=== PATIENT | female | born 1965 | race Caucasian/White ===

== ENCOUNTER 2018-01-02 10:28 | Emergency (ER) | payer OTHER, SELFPAY ==
[2018-01-02 10:29] VITALS: BP 119/69; PULSE 124; RESP 17; TEMP 37.7; O2SAT 93; BMI 41.0
[2018-01-02 10:33] VITALS: PULSE 121; RESP 17; O2SAT 93
--- NOTE | 2018-01-02 10:56 | ED.DCSUM_ITS ---
- ER Visit Summary Date of Service: 01/02/18 Chief Complaint: [] Low lumbar back pain yesterday evening History of Present Illness: The patient is a 52 F [] lumbar spine fusion in the past, chronic right knee pain scheduled for surgery next week reports that yesterday around 10 AM to be having low lumbar back pain persisted radiates to her left buttock, she is having no abdominal pain no fever no cough no chest pain 06 paresthesias normal bowel bladder habits no perineal anesthesia she has had no trauma to her body and no other complaints he has no history of SC PE DVT dissection AAA or GI GI or elements such as kidney stones Physical Examination: [] She is a very large woman short statured she complains of pain directly to her low lumbar back this area is tender, there is no warmth or swelling her lungs are clear heart tones are normal the abdomen is obese but soft nontender she denies any perineal anesthesia she has full range of motion of her legs limited slightly by pain but there is normal strength of both lower extremities she is able dorsi and plantarflex the feet and the toes without difficulty there is no loss of sensation as long as she still she feels better when she tries to move her body she has pain Test Results: [] Emergency Department Course and Treatment: [] Pain appears to be musculoskeletal if she sitting still she feels much better when she tries to move or roll she has more pain at this time she will be medicated lumbar back XRAYS Spine x-rays are unremarkable she is feeling better explained test results to her at this time she feels well enough to be discharged home, and this is likely musculoskeletal as her symptoms are clearly reproduced and exacerbated by movement better when she rests she has no abdominal pain or other risk factors and there are no red flag symptoms On Percocet for the pain Flexeril she is seeing Dr. Glen Sanchez for her knee she can either see him for the back as well or her family doctor or both and return for change in symptoms Treatment Plan: [] Disposition: [] Stable home Impression: [] Acute lumbar back strain This note was generated with [employer] software. It may contain incorrect words, spelling, and punctuation that were not noted in review of the chart prior to signing ED Disposition - Plan for ED Patient: Chief Complaint: Back Referrals: Stephanie Proctor [Primary Care Provider] -
[2018-01-02] MEDS: Ondansetron ODT 4 MG Tablet PO (11:34)
--- NOTE | 2018-01-02 11:40 | RAD_ITS ---
STUDY: X-RAY - LUMBAR SPINE REASON FOR EXAM: Female, 52 years old. Pain TECHNIQUE: 3 view(s) of the lumbar spine were obtained. COMPARISON: None FINDINGS: Normal lumbar lordosis. There is no substantial scoliosis. There is a normal alignment of the vertebrae. Partially fused L5-S1 level. Normal vertebral bodies. Minimal spurring at the endplates. Normal disc space heights. The soft tissue structures are unremarkable. There are surgical clips in the right upper quadrant. RAD/Lumbar Spine 2 or 3 Views IMPRESSION: No acute bony injury of the lumbar spine. Electronically Signed: Emerson Hurtado DO at 12:09 EST Tel [phone], Service support ,
--- NOTE | 2018-01-02 12:18 | ED.DEP ---
ED Disposition - Plan for ED Patient: Chief Complaint: Back Instructions: ED Spasm Back No Trauma Prescriptions: Oxycodone HCl/Acetaminophen [Percocet 5/325] 1 tab PO Q6H PRN PRN #12 tab PRN Reason: Pain Referrals: Stephanie Proctor [Primary Care Provider] -
[2018-01-02 12:50] VITALS: BP 113/64; PULSE 111; RESP 15; O2SAT 94
== END 2018-01-02 12:51 | disposition home or self-care (01) ==
PROVIDERS: Emergency Provider Emergency Medicine; Family Provider Family Medicine; PCP Family Medicine
DX: S39.012A Strain of muscle, fascia and tendon of lower back, initial encounter (principal); X58.XXXA Exposure to other specified factors, initial encounter; Y93.9 Activity, unspecified; Y92.9 Unspecified place or not applicable; M25.561 Pain in right knee; G89.29 Other chronic pain; Z98.1 Arthrodesis status; Z79.899 Other long term (current) drug therapy
CPT/HCPCS: 72100; 96372; 99283

== ENCOUNTER → 2018-09-15 13:42 | Outpatient (CLI) | payer OTHER, SELFPAY ==
--- NOTE | 2018-09-15 13:49 | VDLE_ITS ---
Reason For Study: LEG PAIN RIGHT LEFT GSV is normal. CFV is compressible, spontaneous, phasic, CFV is compressible, spontaneous, phasic, competent, and demonstrates normal competent and demonstrates normal augmentation. augmentation. FV is compressible, spontaneous, phasic, competent and demonstrates normal augmentation. POP V is compressible, spontaneous, phasic, competent and demonstrates normal augmentation. T/P Trunk is compressible. PTV is compressible. RT PerV is compressible. Procedure Exam performed in department. A preliminary report was called and/or faxed to Skyla Mccallum. <> Interpretation Summary Deep veins of the right lower extremity are patent and compressible segmentally. There is no evidence of right lower extremity deep vein thrombosis. Valvular competence appears intact within the proximal deep venous system on the right . The right greater saphenous vein appears patent and compressible segmentally. Ordering Physician: Brandon Mccallum Referring Physician: Brandon Mccallum Performed By: Kiana Robles RVT
== END ==
PROVIDERS: Family Provider Family Medicine; PCP Family Medicine; Referring Provider Physician Assistant; Visit Provider Physician Assistant
DX: M79.661 Pain in right lower leg (principal)
CPT/HCPCS: 93971

== ENCOUNTER → 2018-11-02 10:32 | Outpatient (CLI) | payer OTHER, SELFPAY ==
--- NOTE | 2018-11-02 10:46 | EKG12_ITS ---
Test Reason : PRE OP Blood Pressure : / mmHG Vent. Rate : 085 BPM Atrial Rate : 085 BPM P-R Int : 164 ms QRS Dur : 074 ms QT Int : 384 ms P-R-T Axes : 073 022 047 degrees QTc Int : 456 ms Normal sinus rhythm Normal ECG Confirmed by ROBERT EDUARDO, EVERARDO ([id number]), make up editor PETER TOLENTINO ([id number]) on 11/03/2018 2:20:44 PM Referred By: Brandon Mccallum Confirmed By:EVERARDO JONES MD
[2018-11-02 11:09] LABS: Hematocrit 41.3 % (37-47); Hemoglobin 13.9 g/dl (12.0-15.0); Mean Corp Hgb Conc 33.7 g/gl (32-36); Mean Corpuscular Hgb 29.3 pg (27.0-32.0); Mean Corpuscular Volume 87.1 fL (81-99); Mean Platelet Vol. 10.4 fl (6.2-12.0); Platelet Count 265 K/mm3 (150-450); RBC Distribution Width CV 13.2 % (11.6-14.6); Red Blood Count 4.74 M/mm3 (4.2-5.4); White Blood Count 9.9 K/mm3 (4.4-11.0)
[2018-11-02 11:15] LABS: Scan Indicated on CBC? Y/N NO
[2018-11-02 11:29] LABS: Anion Gap 8 (5-15); BUN 17 mg/dL (7-18); BUN/Creat Ratio 19.9 RATIO (10-20); Chloride 101 mmol/L (98-107); Creatinine, Serum 0.86 mg/dL (0.55-1.02); EST Glomerular Filtration Rate 74 mL/min (>60); Est Glom Filt Rate - Afr Amer 90 mL/min (>60); Glucose 121 mg/dL (74-106); Sodium Level 138 mmol/L (136-145)
== END ==
PROVIDERS: Family Provider Family Medicine; PCP Family Medicine; Referring Provider Physician Assistant; Visit Provider Physician Assistant
DX: Z01.818 Encounter for other preprocedural examination (principal); Z01.810 Encounter for preprocedural cardiovascular examination
CPT/HCPCS: 36415; 80048; 85027; 93005

== ENCOUNTER 2020-04-06 00:14 | Emergency (ER) | payer OTHER, SELFPAY ==
[2020-01-21 09:15] VITALS: BMI 41.0
[2020-04-06 00:14] VITALS: BP 152/86; PULSE 87; RESP 16; TEMP 36.3; O2SAT 96; BMI 41.8
--- NOTE | 2020-04-06 00:21 | EKG12_ITS ---
Test Reason : Blood Pressure : / mmHG Vent. Rate : 086 BPM Atrial Rate : 086 BPM P-R Int : 162 ms QRS Dur : 074 ms QT Int : 380 ms P-R-T Axes : 072 024 025 degrees QTc Int : 454 ms Normal sinus rhythm Low voltage QRS Borderline ECG Confirmed by ARIANA EDUARDO, RADHA ([id number]), communications editor KEILA SERRATO ([id number]) on 04/09/2020 2:08:14 PM Referred By: MARCIO Confirmed By:KARIS LNAE MD
--- NOTE | 2020-04-06 00:22 | ED.DCSUM_ITS ---
History of Present Illness Chief Complaint: Hyperglycemia Informant: Patient Narrative: Resents with lightheaded episode at work. She stated she felt sweaty at the time. She felt slightly disoriented. This is slowly passed. She checked her blood sugar and it was normal. Her blood sugar was greater than 400 this afternoon however. The patient denies any chest pain shortness of breath headache or other symptoms. She stated her legs feel heavy below her knees. She has had this in the past but never this severe. She is unsure whether causes. Denies any cardiac history. - Past Medical History (1) Chest pain Status: Acute (2) Diabetes Status: Acute (3) Hypothyroid Status: Acute (4) bipolar Status: Acute Past Medical History - Allergies and Home Meds Allergies/Adverse Reactions: Allergies Cephalosporins Allergy (Verified 04/06/20 00:18) Rash Penicillins [PCN] Allergy (Verified 04/06/20 00:18) Rash Sulfa (Sulfonamide Antibiotics) Allergy (Verified 04/06/20 00:18) Rash Primary Care Physician: Carson Jeong MD [Primary Care Provider] - Prior records reviewed: Yes Past Medical History: - - See problem list Surgical History: cholecystectomy, - - back surgery, hysterectemy. Lives: With Family Smoking Status: Never smoker Alcohol: None Drugs: None - Family History Paternal Family History: Reports: - - uncles and grandmother had heart attacks. Review of Systems General: Reports: Sweats. Denies: Chills, Fever Eyes: Denies: Visual changes - bilaterally, Diplopia ENT: Denies: Rhinorrhea, Sore throat Cardiovascular: Denies: Chest pain, Palpitations Respiratory: Denies: Dyspnea, Cough, Dyspnea on exertion Gastrointestinal: Denies: Abdominal pain, Nausea, Vomiting, Diarrhea, Melena, Hematochezia Genitourinary: Denies: Dysuria, Hematuria, Frequency Musculoskeletal: Denies: Back pain, Extremity Pain Skin: Denies: Rash, Wounds Neurological: Reports: Weakness. Denies: Headache, Numbness Physical Exam Vital Signs/Narrative: Vital Signs Temp Pulse Resp BP Pulse Ox 04/06/20 00:14 97.4 F L 87 16 152/86 H 96 General: Well nourished, Well developed, No Acute Distress Head: Normocephalic, Atraumatic Eyes: Perrl, EOMI ENT: Moist mucous membranes, No rhinorrhea Neck: Supple, Nontender Cardiovascular: Regular rate, Regular rhythm, No murmurs Respiratory: No distress, CTA bilaterally, Chest nontender Abdomen: Soft, Nontender, Nondistended, Normal bowel sounds Back: Nontender, Normal Inspection Extremities: Nontender, No edema Skin: Normal color, No rash Neurological: Alert, Oriented x3, Cranial nerves II-XII grossly intact, Normal Strength, Normal Sensation Psychological: Normal affect, Normal Mood Diagnostic/Tx/Re-eval - Medical Decision Making Blood sugar within normal limits in the emergency department. Lab work and EKG obtained. Lab work normal including CBC BMP troponin. EKG shows normal sinus rhythm 86 with no acute ischemia or arrhythmia. Patient remains comfortable in the department. I do not feel she needs a inpatient work-up. She is resting comfortably. Her symptoms are nonspecific. I feel she can follow-up as an ou tpatient ED Disposition - Plan for ED Patient: Disposition: Home or Assisted Living Diagnosis: Light headedness, Weakness Instructions: ED Weakness [facility], ED Dizziness [facility] Referrals: Carson Jeong MD [Primary Care Provider] -
[2020-04-06 00:26] LABS: Bedside Glucose 139 mg/dL (70-110)
[2020-04-06 00:47] LABS: Absolute Lymphocyte Count 1.97 X10^3/uL (0.83-4.51); Absolute Neutrophil Count 7.5 X10^3/uL (2.0-7.7); Basophil# 0.03 X10^3/uL; Basophil% 0.3 % (0-1); Eosinophil# 0.13 X10^3/uL; Eosinophils% 1.3 % (0-5); Hematocrit 37.9 % (37-47); Hemoglobin 12.5 g/dL (12.0-15.0); Lymphocyte # 1.97 X10^3/ul (4.0); Lymphocyte % 19.3 % (19-41); Mean Corpuscular Hgb 27.4 pg (27.0-32.0); Mean Corpuscular Volume 83.1 fL (81-99); Mean Platelet Vol. 10.2 fl (6.2-12.0); Monocyte# 0.53 X10^3/uL; Monocyte% 5.2 % (0-10); NRBC Flagged by Analyzer 0 % (0-5); Neutrophil # 7.51 X10^3/uL (2.7-7.7); Neutrophil % 73.4 % (47-70); Platelet Count 262 K/mm3 (150-450); RBC Distribution Width CV 12.9 % (11.6-14.6); RBC Distribution Width SD 38.9 fl (35.1-43.9); Red Blood Count 4.56 M/mm3 (4.2-5.4); White Blood Count 10.2 K/mm3 (4.4-11.0)
[2020-04-06 01:38] LABS: Anion Gap 7 (5-15); BUN 9 mg/dL (7-18); BUN/Creat Ratio 11.2 RATIO (10-20); Calcium,Total 9.4 mg/dL (8.5-10.1); Chloride 104 mmol/L (98-107); EST Glomerular Filtration Rate 79 mL/min (>60); Est Glom Filt Rate - Afr Amer 96 mL/min (>60); Estimated Creatinine Clearance 61.37 ml/min; Glucose 128 mg/dL (74-106); Potassium 4.4 mmol/L (3.5-5.1); Sodium Level 140 mmol/L (136-145)
[2020-04-06 01:42] VITALS: BP 129/77; PULSE 85; RESP 16; O2SAT 98
--- OUTSIDE RECORDS SUMMARY | 2020-08-12 12:12 | XMS RPT_ITS | CCD ---
:1965 External Reference #:[id number] Author Organization [facility] Care Team Providers Name Role Phone Hitesh Unavailable Unavailable Hitesh Unavailable Unavailable RENNY, M Unavailable Unavailable Hitesh Unavailable Unavailable Hitesh Unavailable Unavailable O'Evy Unavailable Unavailable Christian, Elyaderani Admitting Unavailable Christian, Elyaderani Attending Unavailable Christian, Elyaderani Referring Unavailable UNKNOWN Primary Care Unavailable Hcristian, Elyaderani Attending Unavailable UNKNOWN Referring Unavailable UNKNOWN Primary Care Unavailable Christian, Elyaderani Attending Unavailable UNKNOWN Referring Unavailable UNKNOWN Primary Care Unavailable Christian, Elyaderani Attending Unavailable UNKNOWN Referring Unavailable UNKNOWN Primary Care Unavailable Christian, Elyaderani Attending Unavailable UNKNOWN Referring Unavailable UNKNOWN Primary Care Unavailable Pilo Sheffield Primary Care Provider Pilo Sheffield Primary Care Provider Allergies Reported Allergen Reaction(s) Severity Date of Onset Location Cephalosporins (Antibiotic) Anxiety Mild 06-18-2015 - [facility] ([id number]) Penicillins Rash Mild 06-18-2015 - [facility] (50855) Sulfonamides (Antibiotic) Rash Mild 06-18-2015 - [facility] (15165) Medications Current Medications Medication Name Sig Date Prescriber Location Acetaminophen acetaminophen (AMINOFEN) 01-27-2019 Rashad Vieyra nd [facility] (82043) 325 MG tablet Take 2 tablets by mouth every 6 hours as needed for Pain 120 tablet 0 01/27/2019 Active ARIPiprazole ARIPiprazole (ABILIFY) 5 05-07-2015 Historical Provi karthik [facility] (93016) MG tablet Take 5 mg by mouth daily 0 05/07/2015 Active atorvastatin atorvastatin (LIPITOR) 02-01-2020 [facility] (20126) 20 MG tablet Indications: Other hyperlipidemia Take 1 tablet by mouth nightly 90 tablet 1 02/01/2020 Active atorvastatin (LIPITOR) 20 MG tablet Indications: Other 9 [facility] (76976) hyperlipidemia Take 1 tablet by mouth nightly 90 tablet 1 08/03/2019 Active Azithromycin azithromycin 12-09-2019 [facility] (53148) (ZITHROMAX) 250 MG tablet Take 2 tabs (500 mg) on Day 1, and take 1 tab (250 mg) on days 2 through 5. 1 packet 0 12/09/2019 Active Calcium Carbonate calcium carbonate 02-22-2018 Stephanie [facility] (41222) (OSCAL) 500 MG TABS tablet Take 1 tablet by mouth daily 90 tablet 0 02/22/2018 Active clonazePAM clonazePAM (KLONOPIN) 05-07-2015 Historical Provider [facility] (00142) 0.5 MG tablet Take 0.5 mg by mouth nightly . 0 05/07/2015 Active Diclofenac diclofenac sodium 04-02-2020 [facility] th- (VOLTAREN) 1 % [place], [place] ([address]) Indications: Arthritis of left ankle Apply 2 g topically 2 times daily To left ankle 1 Tube 3 04/02/2020 Active dulaglutide Dulaglutide 05-15-2020 [facility] (60450) (TRULICITY) 1.5 MG/0.5ML SOPN Inject 1.5 mg into the skin once a week 12 pen 3 05/15/2020 Active Dulaglutide (TRULICITY) 1.5 MG/0.5ML 11-03-2019 Sofie Molina oy Nettie [facility] (97963) SOPN Inject 1.5 mg into the skin once a week 12 pen 1 11/03/2019 Active erenumab Erenumab-aooe (AIMOVIG, Historical Provid er [facility] (01362) 140 MG DOSE,) 70 MG/ML SOAJ Inject into the skin every 30 days For migraines 0 Active Ergocalciferol Vitamin D, 02-01-2020 [facility] (27776) Ergocalciferol, 50 MCG (2000 UT) CAPS Indications: Vitamin D deficiency Take 1 capsule by mouth daily 90 capsule 1 02/01/2020 Active Vitamin D, Ergocalciferol, 2000 units CAPS Indications: 08-03-20 19 [facility] (63890) Vitamin D deficiency Take 1 capsule by mouth daily 90 capsule 1 08/03/2019 Active gabapentin gabapentin (NEURONTIN) 300 MG 11-02-2019 - 01-31-2020 [facility] (53614) capsule Indications: Arthritis Take 1 capsule by mouth 3 times daily for 90 days. 270 capsule 1 11/02/2019 Active glimepiride glimepiride (AMARYL) 4 MG tablet 05-15-2020 [facility] (47272) Take 2 tablets by mouth every morning 180 tablet 3 05/15/2020 Active glimepiride (AMARYL) 4 MG tablet Indications: Diabetes 0 [facility] (15251) mellitus type 2 in obese (HCC) Take 2 tablets by mouth every morning 180 tablet 1 02/01/2020 Active glimepiride (AMARYL) 4 MG tablet Indications: Diabetes 0 [facility] (08284) mellitus type 2 in obese (HCC) Take 2 tablets by mouth every morning 180 tablet 0 11/11/2019 Active hydroCHLOROthiazide hydroCHLOROthiazide 08-03-2019 - [facility] (67292) (HYDRODIURIL) 25 MG 08-03-2020 tablet Indications: Essential hypertension Take 1 tablet by mouth daily 90 tablet 1 02/01/2020 08/03/2020 Active levothyroxine levothyroxine (SYNTHROID) 08-03-2019 - [facility] (03284) 25 MCG tablet 08-03-2020 Indications: Hypothyroidism, unspecified type Take 1 tablet by mouth daily 90 tablet 1 02/01/2020 08/03/2020 Active Lisinopril lisinopril 09-28-2019 - [facility] (94713) (PRINIVIL;ZESTRIL) 5 MG 12-27-2019 tablet TAKE 1 TABLET DAILY 90 tablet 1 12/19/2019 Active metFORMIN metFORMIN (GLUCOPHAGE XR) 08-03-2019 - [facility] (94459) 500 MG extended release 11-15-2020 tablet Take 2 tablets by mouth 2 times daily (before meals) 360 tablet 1 05/15/2020 11/15/2020 Active Metoprolol metoprolol succinate 03-26-2020 [facility] ( 95054) (TOPROL XL) 50 MG extended release tablet Take 1 tablet by mouth daily 90 tablet 1 03/26/2020 Active metoprolol succinate (TOPROL XL) 50 MG 10-03-2019 Sofie Burnhammer [facility] (14197) extended release tablet Take 1 tablet by mouth daily 90 tablet 1 10/03/2019 Active Omeprazole omeprazole (PRILOSEC) 40 MG delayed release 02-01-2020 [facility] (82785) capsule Indications: Gastroesophageal reflux disease, esophagitis presence not specified Take 1 capsule by mouth daily 90 capsule 1 02/01/2020 Active omeprazole (PRILOSEC) 40 MG delayed release capsule 08-03-2019 [facility] (66365) Indications: Gastroesophageal reflux disease, esophagitis presence not specified Take 1 capsule by mouth daily 90 capsule 1 08/03/2019 Active REYVOW 100 MG TABS REYVOW 100 MG TABS 05-17-2020 Historical Provi [facility]- Take 2 tablets by Historical Provider [place] ([address]) mouth as needed 0 05/17/2020 Active SITagliptin SITagliptin 02-01-2020 [facility] (80341) (JANUVIA) 100 MG tablet Indications: Diabetes mellitus type 2 in obese (HCC) TAKE 1 TABLET BY MOUTH EVERY DAY 90 tablet 1 02/01/2020 Active SITagliptin (JANUVIA) 100 MG tablet Indications: Diabetes 2019 [facility] (49406) mellitus type 2 in obese (HCC) TAKE 1 TABLET BY MOUTH EVERY DAY 90 tablet 0 11/11/2019 Active Sodium Chloride 0.9 % sodium chloride 06-26-2020 Amrik Amaya [place], [place] infusion (77847) 0.9 % sodium chloride bolus 03-31-2020 - 04-01-2020 [place], [place] ([address]) SUMAtriptan SUMAtriptan (IMITREX) 100 Historical Prov ider [facility] (57586) MG tablet Take 100 mg by mouth once as needed for Migraine Max 2 per day 0 Active ZOLMitriptan ZOMIG 5 MG nasal solution 10-07-2019 Historical Prov ider [facility] (05214) Completed/Discontinuned Medications Medication Name Sig Date Prescriber Location albuterol sulfate HFA albuterol sulfate HFA 08-03-2019 - Agueda Boles [facility] (54265) 108 (90 Base) MCG/ACT 108 (90 Base) MCG/ACT 06-26-2020 inhaler inhaler Indications: Bronchitis Inhale 2 puffs into the lungs every 6 hours as needed for Wheezing or Shortness of Breath 1 Inhaler 0 08/03/2019 06/26/2020 Discontinued (Therapy completed) albuterol sulfate HFA 108 (90 Base) MCG/ACT 08-03-2019 Shahnaz Angeles [facility] (27783) inhaler Indications: Bronchitis Inhale 2 puffs into the lungs every 6 hours as needed for Wheezing or Shortness of Breath 1 Inhaler 0 08/03/2019 Active albuterol sulfate HFA 108 (90 Base) MCG/ACT 08-03-2019 Shahnaz jacques [facility] (17494) inhaler Indications: Bronchitis Inhale 2 puffs into the lungs every 6 hours as needed for Wheezing or Shortness of Breath 1 Inhaler 0 08/03/2019 Active albuterol sulfate HFA 108 (90 Base) MCG/ACT 08-03-2019 Shahnaz jacques Brunner Lalit [facility] (78284) inhaler Indications: Bronchitis Inhale 2 puffs into the lungs every 6 hours as needed for Wheezing or Shortness of Breath 1 Inhaler 0 08/03/2019 Active Dexamethasone dexamethasone 04-01-2020 - [facility]- (DECADRON) injection 04-01-2020 [place] ([address]) 10 mg Metoclopramide metoclopramide 03-31-2020 - [facility] h- (REGLAN) injection 10 03-31-2020 [place] ([address]) mg nabumetone nabumetone (RELAFEN) 03-22-2020 - Sofie [facility]- 500 MG tablet Take 1 06-26-2020 [facility] [place] ([address]) tablet by mouth 2 times daily 60 tablet 0 03/22/2020 06/26/2020 Discontinued (DISCONTINUED BY ANOTHER CLINICIAN) nabumetone (RELAFEN) 500 MG tablet Take 1 01-09-2020 [facility] [place] ([address]) tablet by mouth 2 times daily 60 tablet 0 01/09/2020 Active Ondansetron ondansetron 12-11-2019 [facility] (97586) (ZOFRAN-ODT) 4 MG 12-11-2019 Provider disintegrating tablet predniSONE predniSONE (DELTASONE) 04-01-2020 - [facility]- 20 MG tablet Take 2 04-29-2020 [place], [place] ( [address]) tablets by mouth daily for 14 days, THEN 1 tablet daily for 14 days. 42 tablet 0 04/01/2020 04/29/2020 Active predniSONE (DELTASONE) 20 04-01-2020 - [facility] [place] [place] MG tablet Take 3 tablets by (452 37) mouth daily for 14 days, THEN 2 tablets daily for 14 days, THEN 1 tablet daily for 14 days. 84 tablet 0 04/01/2020 04/01/2020 Discontinued (REORDER) Problems Active Problems Category Problem Name Status Date Location Allergic reactions Allergy status to Active 04-20-2018 [facility] sulfonamides status System ( 41737) Biliary tract disease Postcholecystectomy Active 01-07-2018 [facility] syndrome System (60817) Diabetes mellitus with Type 2 diabetes mellitus in Active [facility] (31171) complications obese Diabetes mellitus Type 2 diabetes mellitus Active 01-07-2018 [facility] without complication without complications System (70985) Disorders of lipid Hyperlipidemia, unspecified Active 018 [facility] metabolism System (43285) Esophageal disorders Gastro-esophageal reflux Active 01-08-20 [facility] disease without esophagitis System (85561) Essential hypertension Essential (primary) Active 11-28-2015 [facility] hypertension System (89132) Headache; including Refractory migraine with Active [facility] (86643) migraine aura Malaise and fatigue Fatigue Active [facility]- [place] ([address]) Mood disorders Major depressive disorder, Active 04-20-2018 [facility] Health recurrent, unspecified Syste m (65637) Nonspecific chest pain Chest pain Active [facility] (66773) Nutritional Vitamin D deficiency Active 03-04-2017 [facility] ( 78760) deficiencies Osteoarthritis Arthritis Active 11-28-2015 [facility] (09593) Other liver diseases Fatty (change of) liver, Active 01-08-20 [facility] not elsewhere classified Sys tem (28486) Other liver diseases Non-alcoholic fatty liver Active 017 [facility] (02024) Other non-traumatic Arthritis of left ankle Active 04-02-2020 - [facility]- joint disorders [place], [place] ([address]) Other non-traumatic Acute ankle pain Active [facility]- joint disorders [place], [place] ([address]) Other nutritional; Body mass index 40+ - Active 04-21-2018 [facility] (64645) endocrine; and severely obese - 12-31-2018 metabolic disorders - Other nutritional; Obesity, unspecified Active 01-07-2018 [facility] endocrine; and System (95573 ) metabolic disorders Other nutritional; Morbid obesity Active [facility]- endocrine; and [place], [place] ([address] ) metabolic disorders Thyroid disorders Hypothyroidism, unspecified Active 04-20-20 [facility] System (63692) Unclassified MCFP (current) use of Active 04-20-2018 [facility] oral hypoglycemic drugs Syst em (99564) Unclassified Body mass index (BMI) Active 01-07-2018 [facility] Health 38.0-38.9, adult System (000 00) Past or Other Problems Category Problem Name Status Date Location Abdominal pain Flank pain Completed 01-10-2018 [facility] (54114) Bacterial infection Unspecified Escherichia Completed 01-07-2018 [facility] coli [E. coli] as the System (97896) cause of diseases classified elsewhere Fever of unknown origin Fever, unspecified Completed 01-07-2018 [facility] Health - 11-03-2018 System (11595) - Fluid and electrolyte Hypokalemia Completed 01-07-2018 [facility] Health disorders System (99589) Genitourinary symptoms Gross hematuria Completed 01-07-2018 [facility] and ill-defined - 11-03-2018 System (0000 0) conditions - Other gastrointestinal Constipation, Completed 01-07-2018 - [facility] Health disorders unspecified System (13231) Other injuries and Systemic inflammatory Completed 01-07-2018 [facility] Health conditions due to response syndrome Syste m (60922) external causes (SIRS) of non-infectious origin without acute organ dysfunction Other injuries and Systemic inflammatory Completed 01-07-2018 [facility] (15864) conditions due to response syndrome - 01-13-2018 external causes - Other liver diseases Enzyme level - finding Completed 01-07-2018 - [facility] (03976) - 12-31-2018 - Other lower respiratory Hypoxia Completed 01-10-2018 - [facility] (83265) disease - 12-31-2018 - Other lower respiratory Hypoxemia Completed 01-07-2018 - [facility] Health disease System (74479) Other nutritional; Obesity Completed 11-03-2018 - [facility] (44 303) endocrine; and metabolic disorders Other screening for Liver function tests Completed 08-03-2019 - [facility] (21217) suspected conditions abnormal (not mental disorders or infectious disease) Pleurisy; pneumothorax; Pleural effusion Completed 01-10-2018 - [facility] (14271) pulmonary collapse - 12-31-2018 - Residual codes; History of Completed 12-31-2018 - [facility] (30667 ) unclassified cholecystectomy Septicemia (except in Bacteremia caused by Completed 11-03-2018 - [facility] (91666) labor) Gram-negative bacteria Spondylosis; Lumbago with sciatica, Completed 01-07-2018 - [facility] Health intervertebral disc left side - 11-03-2018 System ( 49703) disorders; other back - problems Results Result Name Value Range Unit Interpretation Flag Date Location surgical pathology on 2020-06-26 Surgical [id number] Normal 06-26-2020 [facility] Pathology [facility] DEPARTMENT OF [facility] System PATHOLOGY AND (72393 ) LABORATORY MEDICINE [address] [place] [address] Fax - FINAL SURGICAL PATHOLOGY REPORT NAME: SHIRLEY HYLTON : 1965 54 Y F BILLING NO.: [id number] LOCATION: [place] PROCEDURE 06/26/2020 DATE: SURGEON: DAVID RABAGO MD RECEIVED 06/26/2020 DATE: ATTENDING: DAVID RABAGO MD REPORT DATE: 06/27/2020 COPIES TO: DIAGNOSIS: COLON, CECUM, POLYPECTOMY - TUBULAR ADENOMA JAW/JAW Signature> ELAINE BROWLNEE M.D. CLINICAL INFORMATION: Screening SPECIMEN: COLON POLYP, BIOPSY GROSS DESCRIPTION: Received in formalin labeled colon - cecum polyp are multi ple segments of ellison tissue which aggregate to approximately 0.4 x 0.4 cm. Specimen is entirely submitted in a single cassette. JCK/JAF Disclaimer: The following statement applies to all immunohistochemistry, in situ hybridization, molecular studi es, and immunofluorescence testing. The use of one or more reagents in the above tests is regula marciano as an analyte specific reagent (ASR). These tests were developed a nd their performance characteristics determined by the clinical labor atories of [facility]. They have not been cleared by the [place] od and Drug Administration (FDA). The FDA has determined that such clear ance or approval is not necessary. All the above immunostains were performed on paraffin embedd ed tissue. Appropriate positive and negative controls (where applicable ) were run in parallel with the patient's specimen; these controls show ed expected staining pattern, with acceptable intensity of staining. Immunohistochemical assays have not been validated on decalc ified tissues. Results should be interpreted with caution given th e raised possibility of false negativity on decalcified specimens. Case reviewed at [place] [address] [place] [address]. DEPARTMENT OF PATHOLOGY AND LABORATORY MEDICINE [place], [place] [address] glucose,bedside on 2020-06-26 Glucose [Mass/Vol] 169 70-100 mg/dL High 06-26-2020 [facility] (89578) Comment: Result Comment: Test perform ed by glucose meter. Results may be 10%-15% lower than serum/plasma values. (C ZAID ID [id number]) Performed By: #### HEMOG, BM P3, MG3, TROPN #### [facility] [address] [place] [address] No panel information on 2020-06-26 Glucose [Mass/Vol] 169 70 - 100 mg/dL High 06-26-2020 [place], [place] ([address]) Comment: Test performed by glucose me ter. Results may be 10%-15% lower than serum/plasma values. ( CLIA ID [id number]) Interpretation and review Abnormal [facility], of laboratory results [place] ([address]) Test Performed by 06-26-2020 [facility], [facility] ([address]) [address] , [place], [place] [address] sed rate on 2020-03 Sed Rate 66 0-20 mm/h High 04-01-2020 [facility] (39184) Comment: Performed By: #### HEMOG, BM P3, MG3, TROPN #### [facility] [address] [place] [address] prothrombin time on 2020-04-01 INR Coag (PPP) [Relative 1.0 0.9-1.1 Normal 04-01 [facility] time] (98791) Comment: Result Comment: Recommended Anticoagulant Therapy: SEE BELOW ----- INR of 2.0 - 3.0 : - Prophylaxis of Venous Thro mbosis (high-risk surgery) - Treatment of Venous Thromb osis - Treatment of Pulmonary Emb olism (Includes tissue heart valves, Acute Myocardial Inf arction to prevent systemic embolism, Valvular Heart Dis ease, and Atrial Fibrillation) ----- INR of 2.5 - 3.5 : - Mechanical Prosthetic Valv es (high risk) - If oral anticoagulant ther apy is used to prevent Myocardial Infarction Performed By: #### HEMOG, BM P3, MG3, TROPN #### [facility] [address] [place] [address] PT Coag (PPP) [Time] 10.9 9.0-12.0 s Normal 0 [facility] (56958) Comment: Result Comment: . Performed By: #### HEMOG, BM P3, MG3, TROPN #### [facility] [address] [place] [address] magnesium on 04-01 Magnesium [Mass/Vol] 1.7 1.6-2.3 mg/dL Normal 0 [facility] (83310) Comment: Performed By: #### HEMOG, BM P3, MG3, TROPN #### [facility] [address] [place] [address] hemogram w/ autodiff on 2020-04-01 Abs Baso Cnt 0.1 0.0-0.2 10*3/uL Normal 04-01-2020 [facility] (71183) Comment: Performed By: #### HEMDF, MG 3, BMP3, ESR, PT #### [facility] [address] [place] [address] Abs Neutrophile Cnt 6.6 1.8-7.0 10*3/uL Normal 04-01-2020 [facility] (28050) Comment: Performed By: #### HEMDF, MG 3, BMP3, ESR, PT #### [facility] [address] [place] [address] Basophils/100 WBC (Bld) 0.6 0.0-2.0 % Normal 2019 [facility] (41238) Comment: Performed By: #### HEMDF, MG 3, BMP3, ESR, PT #### [address] [place] [address] Eosinophils (Bld) [#/Vol] 0.1 0.0-0.5 10*3/uL Normal [facility] (58375) Comment: Performed By: #### HEMDF, MG 3, BMP3, ESR, PT #### [address] [place] [address] Eosinophils/100 WBC (Bld) 1.4 1.0-6.0 % Normal [facility] (73418) Comment: Performed By: #### HEMDF, MG 3, BMP3, ESR, PT #### [facility] [address] [place] [address] Erythrocyte distribution 14.2 11.5-14.5 % Normal 04-01 [facility] width (RBC) [Ratio] (40944) Comment: Performed By: #### HEMDF, MG 3, BMP3, ESR, PT #### [facility] [address] [place] [address] Granulocytes/100 WBC (Bld) 72.0 40.0-80.0 % Normal [facility] (78363) Comment: Performed By: #### HEMDF, MG 3, BMP3, ESR, PT #### [facility] [address] [place] [address] Hematocrit (Bld) [Volume 40.0 35.0-47.0 % Normal 04-01 [facility] fraction] (29835) Comment: Performed By: #### HEMDF, MG 3, BMP3, ESR, PT #### [facility] [address] [place] [address] Hemoglobin (Bld) 13.9 11.7-16.0 g/dL Normal 04-01-2020 [facility] [Mass/Vol] (54939) Comment: Performed By: #### HEMDF, MG 3, BMP3, ESR, PT #### [facility] [address] [place] [address] Lymphocytes (Bld) [#/Vol] 1.8 1.0-4.3 10*3/uL Normal [facility] (31072) Comment: Performed By: #### HEMDF, MG 3, BMP3, ESR, PT #### [facility] [address] [place] [address] Lymphocytes/100 WBC (Bld) 19.5 20.0-40.0 % Low [facility] (84016) Comment: Performed By: #### HEMDF, MG 3, BMP3, ESR, PT #### [facility] [address] [place] [address] MCH (RBC) [Entitic mass] 28.3 26.0-34.0 pg Normal 04-01 [facility] (91565) Comment: Performed By: #### HEMDF, MG 3, BMP3, ESR, PT #### [facility] [address] [place] [address] MCHC (RBC) [Mass/Vol] 34.7 32.0-36.0 % Normal 04-01-20 20 [facility] (35844) Comment: Performed By: #### HEMDF, MG 3, BMP3, ESR, PT #### [facility] [address] [place] [address] MCV (RBC) [Entitic vol] 81.6 79.0-98.0 fL Normal 2019 [facility] (61553) Comment: Performed By: #### HEMDF, MG 3, BMP3, ESR, PT #### [facility] [address] [place] [address] Monocytes (Bld) [#/Vol] 0.6 0.0-0.8 10*3/uL Normal 2019 [facility] (53316) Comment: Performed By: #### HEMDF, MG 3, BMP3, ESR, PT #### [facility] [address] [place] [address] Monocytes/100 WBC (Bld) 6.5 2.0-10.0 % Normal 2019 [facility] (08910) Comment: Performed By: #### HEMDF, MG 3, BMP3, ESR, PT #### [facility] [address] [place] [address] Platelet mean volume (Bld) 8.1 7.4-10.4 fL Normal [facility] [Entitic vol] (20352 ) Comment: Performed By: #### HEMDF, MG 3, BMP3, ESR, PT #### [facility] [address] [place] [address] Platelets (Bld) [#/Vol] 275 140-440 10*3/uL Normal 2019 [facility] (34561) Comment: Performed By: #### HEMDF, MG 3, BMP3, ESR, PT #### [facility] [address] [place] [address] RBC (Bld) [#/Vol] 4.91 3.80-5.20 10*6/uL Normal 04-01-2020 [facility] (28647) Comment: Performed By: #### HEMDF, MG 3, BMP3, ESR, PT #### [facility] [address] [place] [address] WBC (Bld) [#/Vol] 9.2 3.6-10.7 10*3/uL Normal 04-01-2020 [facility] (31414) Comment: Performed By: #### HEMDF, MG 3, BMP3, ESR, PT #### [facility] [address] [place] [address] glucose,bedside on 2020-04-01 Glucose [Mass/Vol] 125 70-100 mg/dL High 04-01-2020 [facility] (84065) Comment: Result Comment: Test perform ed by glucose meter. Results may be 10%-15% lower than serum/plasma values. (C ZAID ID [id number]) Performed By: #### BGLU #### [facility] [address] [place] [address] ct head or brain w/o contrast on 2020-04-01 CT Head or Brain Patient Name: SHIRLEY HYLTON al 04-01-2020 [facility] w/o Contrast Syst em ([id number]) CT Exam Date/Time 04/01/2020 02:43:[address] Head or Brain w/o Contrast Ordering Physician MD MARY ELLEN, [facility] Accession Number [id number] CPT4 Codes 95986 () Reason For Exam headache Report CT HEAD: CLINICAL INDICATION: Severe persistent headache TECHNIQUE: Transaxial CT sequence performed through the head with 3 mm reconstruction. Sagittal and Coronal reconstruction images i ncluded. Dose reduction employed with automated exposure control. COMPARISON: MRI from 02/20/2016 FINDINGS: Ventricles and Extra-axial spaces: Normal in size and morpho logy for the patient's age. No abnormal extracerebral collection identifi ed. Cerebral and cerebellar parenchyma: No regions of abnormal i ncreased or decreased attenuation, mass lesion or evidence of acute infa rct. Sella turcica: There is diminutive amount of pituitary tissu e at the base of the sella turcica, corresponding to partial empty sella configur ation Hemorrhage: None Brainstem: Normal Visualized Paranasal sinuses: Normal. Mastoid air cells: Normal Visualized Orbits: Normal Calvarium and skull base: Normal IMPRESSION: No acute intracranial abnormality. Report Dictated on Workstation: [id number] Final Dictating Physician: MD JACOBSEN JEFFREY Signed Date and Time: 04/01/2020 2:56 am Signed by: MD JACOBSEN JEFFREY Transcribed Date and Time: 04/01/2020 2:57 complete urinalysis on 2020-04-01 Appearance (U) Clear Clear Normal 04-01-2020 [facility] ([id number]) Comment: Result Comment: . Performed By: #### HEMOG, BM P3, MG3, TROPN #### [facility] [address] [place] [address] Bilirubin,Urine Negative Negative Normal 04-01-2020 [facility] ([id number]) Comment: Result Comment: . Performed By: #### HEMOG, BM P3, MG3, TROPN #### [facility] [address] [place] [address] Color (U) COLORLESS Lt. Yellow Normal 04-01-2020 [facility] (60302) Comment: Result Comment: . Performed By: #### HEMOG, BM P3, MG3, TROPN #### [facility] [address] [place] [address] Glucose Ql (U) Normal Normal (<70) Normal 04-01-2020 [facility] (66289) Comment: Result Comment: . Performed By: #### HEMOG, BM P3, MG3, TROPN #### [facility] [address] [place] [address] Ketone,Urine Negative Negative Normal 04-01-2020 [facility] (80780) Comment: Result Comment: . Performed By: #### HEMOG, BM P3, MG3, TROPN #### [facility] [address] [place] [address] Leukocytes,Urine Negative Negative Normal 04-01-2020 [facility] ([id number]) Comment: Result Comment: . Performed By: #### HEMOG, BM P3, MG3, TROPN #### [facility] [address] [place] [address] Nitrites,Urine Negative Negative Normal 04-01-2020 [facility] (75203) Comment: Result Comment: . Performed By: #### HEMOG, BM P3, MG3, TROPN #### [facility] [address] [place] [address] Occult Blood,Urine Negative Negative Normal 04-01-2020 [facility] (51066) Comment: Result Comment: . Performed By: #### HEMOG, BM P3, MG3, TROPN #### [facility] [address] [place] [address] pH (U) 6.5 5.0-8.0 Normal 04-01-2020 [facility] (41173) Comment: Result Comment: . Performed By: #### HEMOG, BM P3, MG3, TROPN #### [facility] [address] [place] [address] Protein (U) [Mass/Vol] Negative Negative mg/dL Normal 020 [facility] (91481) Comment: Result Comment: . Performed By: #### HEMOG, BM P3, MG3, TROPN #### [facility] [address] [place] [address] Specific [place],Urine 1.006 1.005 - 1.030 Normal [facility] (55496) Comment: Result Comment: . Performed By: #### HEMOG, BM P3, MG3, TROPN #### [facility] [address] [place] [address] Urobilinogen,Urine Normal Normal (0-1) Normal 04-01-20 20 [facility] (24490) Comment: Result Comment: . Performed By: #### HEMOG, BM P3, MG3, TROPN #### [facility] [address] [place] [address] basic metabolic panel on 2020-04-01 Calcium [Mass/Vol] 10.1 8.4-10.4 mg/dL Normal 04-01-2020 [facility] (07852) Comment: Performed By: #### HEMOG, BM P3, MG3, TROPN #### [facility] [address] [place] [address] Anion gap [Moles/Vol] 13 Normal 04-01-20 [facility] (22997) Comment: Performed By: #### HEMOG, BM P3, MG3, TROPN #### [facility] [address] [place] [address] CO2 [Moles/Vol] 26 22-30 mmol/L Normal 04-01-2020 [facility] (02726) Comment: Performed By: #### HEMOG, BM P3, MG3, TROPN #### [facility] [address] [place] [address] Creatinine [Mass/Vol] 0.70 0.52-1.25 mg/dL Normal 04-01-20 [facility] (05908) Comment: Performed By: #### HEMOG, BM P3, MG3, TROPN #### [facility] [address] [place] [address] GFR/1.73 sq M > 90.0 >60 mL/min/{1.73_m2} Normal 0 [facility] predicted among Syst em ([id number]) blacks MDRD (S/P/Bld) [Vol rate/Area] Comment: Performed By: #### HEMOG, BM P3, MG3, TROPN #### [facility] [address] [place] [address] GFR/1.73 sq M > 90.0 >60 mL/min/{1.73_m2} Normal 0 [facility] predicted among Syst em (79109) non-blacks MDRD (S/P/Bld) [Vol rate/Area] Comment: Result Comment: KDIGO guidel silvano provide the following GFR categories: Stage GFR(ml/min/1.73 m2) Te chidi G1 >=90 Normal or high G2 60-89 Mildly decreased* G3a 45-59 Mildly to moderate ly decreased G3b 30-44 Moderately to halie rely decreased G4 15-29 Severely decreased G5 <15 Kidney failure *Relative to young adult lev el. In the absence of evidence o f kidney damage, neither GFR category G1 nor G2 fulfill t he criteria for CKD. The CKD-EPI equation is freddy dated in individuals 18 years of age and older. Currently the best equation for estimating glomerular filtra tion rate (GFR) from serum creatinine in children is th e Bedside Novak equation. It is less accurate in patie nts with extremes of muscle mass, restriction of dietary protein, ingestion of creatine, extra-renal metabolism of cr eatinine, or treatment with medications that affect curt l tubular creatinine secretion. Performed By: #### HEMOG, BM P3, MG3, TROPN #### [facility] [address] [place] [address] Glucose [Mass/Vol] 102 70-100 mg/dL High 04-01-2020 [facility] (47936) Comment: Performed By: #### HEMOG, BM P3, MG3, TROPN #### [facility] [address] [place] [address] Urea nitrogen [Mass/Vol] 15 7-20 mg/dL Normal 04-01 [facility] (67419) Comment: Performed By: #### HEMOG, BM P3, MG3, TROPN #### [facility] [address] [place] [address] Chloride [Moles/Vol] 100 98-107 mmol/L Normal 0 [facility] (46680) Comment: Performed By: #### HEMOG, BM P3, MG3, TROPN #### [facility] [address] [place] [address] Potassium [Moles/Vol] 4.0 3.5-5.1 mmol/L Normal 04-01-20 20 [facility] (65464) Comment: Performed By: #### HEMOG, BM P3, MG3, TROPN #### [facility] [address] [place] [address] Sodium [Moles/Vol] 139 135-145 mmol/L Normal 04-01-2020 [facility] (03572) Comment: Performed By: #### HEMOG, BM P3, MG3, TROPN #### [facility] [address] [place] [address] No panel information on 2020-04-01 [facility] - [facility] 2:57 AM EDT 04-01-2020 [place], [place] ([address]) Patient Name: SHIRLEY HYLTON ---CT--- Exam Date/Time 04/01/2020 02:43:[address] Head or Brain w/o Contrast Ordering Physician MD HYDE NISHIT Accession Number [id number] CPT4 Codes 66981 () Reason For Exam headache Report CT HEAD: CLINICAL INDICATION: Severe persistent headache TECHNIQUE: Transaxial CT sequence performed through the head with 3 mm reconstruction. Sagittal and Coronal reconstruction images i ncluded. Dose reduction employed with automated exposure control. COMPARISON: MRI from 02/20/2016 FINDINGS: Ventricles and Extra-axial spaces: Normal in size and morpho logy for the patient's age. No abnormal extracerebral collection identifi ed. Cerebral and cerebellar parenchyma: No regions of abnormal i ncreased or decreased attenuation, mass lesion or evidence of acute infa rct. Sella turcica: There is diminutive amount of pituitary tissu e at the base of the sella turcica, corresponding to partial empty sella configur ation Hemorrhage: None Brainstem: Normal Visualized Paranasal sinuses: Normal. Mastoid air cells: Normal Visualized Orbits: Normal Calvarium and skull base: Normal IMPRESSION: No acute intracranial abnormality. Report Dictated on Workstation: [facility] --- Final --- Dictating Physician: MD JACOBSEN JEFFREY Signed Date and Time: 04/01/2020 2:56 am Signed by: MD JACOBSEN JEFFREY Transcribed Date and Time: 04/01/2020 2:57 Patient Name: SHIRLEY HYLTON [facility] [place] ([id number]) [id number] ---CT--- Exam Date/Time 04/01/2020 02:43:[address] Head or Brain w/o Contrast Ordering Physician MD HYDE NISHIT Accession Number [id number] CPT4 Codes 64550 () Reason For Exam headache Report CT HEAD: CLINICAL INDICATION: Severe persistent headache TECHNIQUE: Transaxial CT sequence performed through the head with 3 mm reconstruction. Sagittal and Coronal reconstruction images included. Dose reduction employed with automated exposure control. COMPARISON: MRI from 02/20/2016 FINDINGS: Ventricles and Extra-axial spaces: Normal in size and morphology for the patient's age. No abnormal extracerebral collection identified. Cerebral and cerebellar parenchyma: No regions of abnormal increased or decreased attenuation, mass lesion or evidence of acute infarct. Sella turcica: There is diminutive amount of pituitary tissue at the base of the sella turcica, corresponding to partial empty sella configuration Hemorrhage: None Brainstem: Normal Visualized Paranasal sinuses: Normal. Mastoid air cells: Normal Visualized Orbits: Normal Calvarium and skull base: Normal IMPRESSION: No acute intracranial abnormality. Report Dictated on Workstation: [email or web address] --- Final --- Dictating Physician: MD JACOBSEN JEFFREY Signed Date and Time: 04/01/2020 2:56 am Signed by: MD JACOBSEN JEFFREY Transcribed Date and Time: 04/01/2020 2:57 No panel information on 2020-03-31 INR Coag (PPP) [Relative 1.0 OTH - OTH {INR} 03-31 [place], [place] time] ([id number]) Comment: Recommended Anticoagulant Th erapy: SEE BELOW ----- INR of 2.0 - 3.0 : - Prophylaxis of Venous Thro mbosis (high-risk surgery) - Treatment of Venous Thromb osis - Treatment of Pulmonary Emb olism (Includes tissue heart valves, Acute Myocardial Inf arction to prevent systemic embolism, Valvular Heart Dis ease, and Atrial Fibrillation) ----- INR of 2.5 - 3.5 : - Mechanical Prosthetic Valv es (high risk) - If oral anticoagulant ther apy is used to prevent Myocardial Infarction PT Coag (PPP) [Time] 10.9 9 - 12 s 0 [place], [place] ([address]) Comment: . Test Performed by [facility] 2019 [place] [place] [facility], [facility] ( [address]) [address] , [place], [place] [address] Appearance (U) Clear Clear NA 03-31-2020 [place] ([address]) Comment: . Bilirubin Urine Negative Negative mg/dL 0 [place] ([address]) Comment: . Color (U) COLORLESS Lt. Yellow NA 03-31-2020 [place] ([address]) Comment: . Glucose, Ur Normal Normal (<70) mg/dL 0 [place] ([address]) Comment: . Ketones Ql (U) Negative Negative mg/dL 03-31-2020 [place] ([address]) Comment: . LEUKOCYTES, UA Negative Negative Artur/uL 0 [place] ([address]) Comment: . Nitrite, Urine Negative Negative NA 03-31-2020 [place] ([address]) Comment: . Occult Blood,Urine Negative Negative mg/dL 2019 [place] ([address]) Comment: . pH (U) 6.5 OTH - OTH [pH] 03-31-2020 [place] ([address]) Comment: . Protein (U) [Mass/Vol] Negative Negative mg/dL mg/dL [place] ([address]) Comment: . Specific [place], Urine 1.006 OTH - OTH 2019 [place], [place] ([address]) Comment: . Urobilinogen, Urine Normal Normal (0-1) mg/dL 0 03-31-2020 [place] ([address]) Comment: . Test Performed by 03-31-2020 [place] ([address]) System, [address] , [place] [address] Interpretation and Abnormal 03-31-2020 [facility]- review [place] ([address]) results Sed Rate 66 0 - 20 mm/h High 03-31-2020 [place], [place] ([address]) Test Performed by 03-31-2020 [place] ([address]) System, [address] , [place] [address] Anion gap [Moles/Vol] 13 mmol/L 03-31-20 20 [place], [place] (78 [address]) Calcium [Mass/Vol] 10.1 8.4 - 10.4 mg/dL 03-31-2020 [place] ([address]) Chloride [Moles/Vol] 100 98 - 107 mmol/L 0 [place] ([address]) CO2 [Moles/Vol] 26 22 - 30 mmol/L 03-31-2020 [place], [place] (84 [address]) Creatinine [Mass/Vol] 0.7 0.52 - mg/dL 03-31-20 20 [facility] 1.25 [place] ([address]) EGFR IF NonAfrican >90.0 >60 mL/min 03-31-2020 [place], [place] ([address]) Comment: KDIGO guidelines provide the following GFR categories: Stage GFR(ml/min/1.73 m2) Terms G1 >=90 Normal or h igh G2 60-89 Mildly decr eased* G3a 45-59 Mildly to moderately decreased G3b 30-44 Moderately to severely decreased G4 15-29 Severely de creased G5 <15 Kidne y failure *Relative to young adult lev el. In the absence of evidence o f kidney damage, neither GFR category G1 nor G2 fulfill t he criteria for CKD. The CKD-EPI equation is freddy dated in individuals 18 years of age and older. Currently the best equation for estimating glomerular filtra tion rate (GFR) from serum creatinine in children is th e Bedside Novak equation. It is less accurate in patie nts with extremes of muscle mass, restriction of dietary protein, ingestion of creatine, extra-renal metabolism of cr eatinine, or treatment with medications that affect curt l tubular creatinine secretion. GFR/1.73 sq M >90.0 >60 mL/min mL/min/{1.73_m2} 03-31-20 [facility] predicted among [facility], [place] MDRD [place] ([address]) (S/P/Bld) [Vol rate/Area] Glucose [Mass/Vol] 102 70 - 100 mg/dL High 03-31-2020 [place] ([address]) Interpretation and Abnormal 03-31-2020 [facility] review of [facility] , laboratory results [place] ([address]) Magnesium 1.7 1.6 - 2.3 mg/dL 03-31-2020 [facility] [Mass/Vol] [place] ([address]) Potassium 4.0 3.5 - 5.1 mmol/L 03-31-2020 [facility] [Moles/Vol] [place] ([address]) Sodium [Moles/Vol] 139 135 - 145 mmol/L 03-31-2020 [place] [place] ([address]) Urea nitrogen 15 7 - 20 mg/dL 03-31-2020 [facility] [Mass/Vol] [place] ([address]) Test 03-31-2020 [facility] Performed by [facility] (117 [address]) System, [address] , [place] [address] Absolute Baso # 0.1 0 - 0.2 10*3/uL 03-31-2020 [place] ([address]) Absolute Neut # 6.6 1.8 - 7 10*3/uL 03-31-2020 [place] ([address]) Basophils/100 WBC 0.6 0 - 2 % 03-31-2020 [place] (Bld) [place] ([address]) Eosinophils (Bld) 0.1 0 - 0.5 10*3/uL 03-31-2020 [facility] [#/Vol] [place] ([address]) Eosinophils/100 1.4 1 - 6 % 03-31-2020 [facility] [place] WBC (Bld) [place] ([address]) Erythrocyte 14.2 11.5 - % 03-31-2020 [facility] ([facility] [Ratio[facility] (65 994) Granulocytes/100 72.0 40 - 80 % 03-31-2020 [facility] [place] WBC (Bld) [place] ([address]) Hematocrit (Bld) 40.0 35 - 47 % 03-31-2020 [facility] [Volume fraction] [place] ([address]) Hemoglobin (Bld) 13.9 11.7 - 16 g/dL 03-31-2020 [facility] [Mass/Vol] [place] ([address]) Interpretation and Abnormal 03-31-2020 [facility] review of [facility] , laboratory results [place] ([address]) Lymphocytes (Bld) 1.8 1 - 4.3 10*3/uL 03-31-2020 [facility] [#/Vol] [place] ([address]) Lymphocytes/100 19.5 20 - 40 % Low 03-31-2020 [facility] WBC (Bld) [place] ([address]) MCH (RBC) [Entitic 28.3 26 - 34 pg 03-31-2020 [facility] mass] [place] ([address]) MCHC (RBC) 34.7 32 - 36 % 03-31-2020 [facility] [Mass/Vol] [facility] [place] ([address]) MCV (RBC) [Entitic 81.6 79 - 98 fL 03-31-2020 [facility] vol] [place] ([address]) Monocytes (Bld) 0.6 0 - 0.8 10*3/uL 03-31-2020 [facility] [#/Vol] [place] ([address]) Monocytes/100 WBC 6.5 2 - 10 % 03-31-2020 [facility] [place] (Bld) [place] ([address]) Platelet mean 8.1 7.4 - 10.4 fL 03-31-2020 [facility] y volume (Bld) [facility], [Entitic vol] [facility] (45 237) Platelets (Bld) 275 140 - 440 10*3/uL 03-31-2020 [facility] [#/Vol] [place] ([address]) RBC (Bld) [#/Vol] 4.91 3.8 - 5.2 10*6/uL 03-31-2020 [place] ([address]) WBC (Bld) [#/Vol] 9.2 3.6 - 10.7 10*3/uL 03-31-2020 [facility] [place] ([address]) Test 03-31-2020 [facility] [place] ([address]) System, [address] , [place], [place] [address] Glucose [Mass/Vol] 125 70 - 100 mg/dL High 03-31-2020 [place] ([address]) Comment: Test performed by glucose hi ter. Results may be 10%-15% lower than serum/plasma values. ( CLIA ID [id number]) Interpretation and review Abnormal [facility], of laboratory results [place] ([address]) Test Performed by 03-31-2020 [facility], [facility] ([address]) [address] , [place], [place] [address] cr ankle 2 views left on 2020-01-09 CR Ankle 2 Views Patient Name: SHIRLEY HYLTON Norm al 01-09-2020 [facility] Left ([address]) Diagnostic Radiology Exam Date/Time 01/09/2020 10:02:06 EDT Exam CR Ankle 2 Views Left Ordering Physician MD NETTIE, SOFIE DAIGLE Accession Number [id number] CPT4 Codes 78449 () Reason For Exam left ankle pain Report LEFT ANKLE CLINICAL INDICATION: Pain AP and lateral plain film views of the left ankle were obtai karla. COMPARISON: None. FINDINGS: No fracture or dislocation of the left ankle is identified. The ankle mortise is intact. There is nonspecific soft tissue swelling about t he ankle, most significantly medially. Mild medial tibiotalar osteoarthriti s. Plantar calcaneal spur. These findings at the Achilles insertion at the calcan eus. IMPRESSION: Nonspecific soft tissue swelling of the ankle, particularly medially. Mild tibiotalar osteoarthritis. No visualized fracture or disloca tion. Report Dictated on Workstation: [id number] Final Dictating Physician: MD KISER NEIL Signed Date and Time: 01/09/2020 10:33 am Signed by: MD KISER NEIL Transcribed Date and Time: 01/09/2020 10:34 No panel information on 2020-01-09 [facility] Incoming [facility] - 2019 10:35 AM EDT 01-09-2020 [facility] ([address]) Patient Name: SHIRLEY HYLTON ---Diagnostic Radiology--- Exam Date/Time 01/09/2020 10:02:06 EDT Exam CR Ankle 2 Views Left Ordering Physician MD SHEFFIELD DARRELL LEROY Accession Number [id number] CPT4 Codes 87296 () Reason For Exam left ankle pain Report LEFT ANKLE CLINICAL INDICATION: Pain AP and lateral plain film views of the left ankle were obtai karla. COMPARISON: None. FINDINGS: No fracture or dislocation of the left ankle is identified. The ankle mortise is intact. There is nonspecific soft tissue swelling about t he ankle, most significantly medially. Mild medial tibiotalar osteoarthriti s. Plantar calcaneal spur. These findings at the Achilles insertion at the calcan eus. IMPRESSION: Nonspecific soft tissue swelling of the ankle, particularly medially. Mild tibiotalar osteoarthritis. No visualized fracture or disloca tion. Report Dictated on Workstation: [employer] --- Final --- Dictating Physician: MD KISER NEIL Signed Date and Time: 01/09/2020 10:33 am Signed by: MD KISER NEIL Transcribed Date and Time: 01/09/2020 10:34 Patient Name: [place] [address]) [id number] ---Diagnostic Radiology--- Exam Date/Time 01/09/2020 10:02:06 EDT Exam CR Ankle 2 Views Left Ordering Physician MD NETTIE, SOFIE DAIGLE Accession Number [id number] CPT4 Codes 27725 () Reason For Exam left ankle pain Report LEFT ANKLE CLINICAL INDICATION: Pain AP and lateral plain film views of the left ankle were obtained. COMPARISON: None. FINDINGS: No fracture or dislocation of the left ankle is identified. The ankle mortise is intact. There is nonspecific soft tissue swelling about the ankle, most significantly medially. Mild medial tibiotalar osteoarthritis. Plantar calcaneal spur. These findings at the Achilles insertion at the calcaneus. IMPRESSION: Nonspecific soft tissue swelling of the ankle, particularly medially. Mild tibiotalar osteoarthritis. No visualized fracture or dislocation. Report Dictated on Workstation: [id number] --- Final --- Dictating Physician: MD KISER NEIL Signed Date and Time: 01/09/2020 10:33 am Signed by: MD KISER NEIL Transcribed Date and Time: 01/09/2020 10:34 troponin i on 12-11 Troponin I.cardiac < 0.012 0.000-0.034 ng/mL Normal 0 [facility] [Mass/Vol] (48861) Comment: Result Comment: . Performed By: #### TROPN ### # [facility] [address] [place] [address] Troponin I.cardiac < 0.012 0.000-0.034 ng/mL Normal 0 [facility] [Mass/Vol] (18542) Comment: Result Comment: . Performed By: #### HEMOG, BM P3, MG3, TROPN #### [facility] [address] [place] [address] magnesium on 2019-0 -16 Magnesium [Mass/Vol] 1.7 1.6-2.3 mg/dL Normal 0 [facility] (32765) Comment: Performed By: #### HEMOG, BM P3, MG3, TROPN #### [facility] [address] [place] [address] hemogram on 2019-11 Erythrocyte distribution 14.1 11.5-14.5 % Normal 12-11 [facility] width (RBC) [Ratio] (95449) Comment: Performed By: #### HEMOG, BM P3, MG3, TROPN #### [facility] [address] [place] [address] Hematocrit (Bld) [Volume 39.7 35.0-47.0 % Normal 12-11 [facility] fraction] (88886) Comment: Performed By: #### HEMOG, BM P3, MG3, TROPN #### [facility] [address] [place] [address] Hemoglobin (Bld) 13.5 11.7-16.0 g/dL Normal 12-11-2019 [facility] [Mass/Vol] (27263) Comment: Performed By: #### HEMOG, BM P3, MG3, TROPN #### [facility] [address] [place] [address] MCH (RBC) [Entitic mass] 28.7 26.0-34.0 pg Normal 12-11 [facility] (56108) Comment: Performed By: #### HEMOG, BM P3, MG3, TROPN #### [facility] [address] [place] [address] MCHC (RBC) [Mass/Vol] 34.1 32.0-36.0 % Normal 12-11-19 20 [facility] (81338) Comment: Performed By: #### HEMOG, BM P3, MG3, TROPN #### [facility] [address] [place] [address] MCV (RBC) [Entitic vol] 84.1 79.0-98.0 fL Normal 2019 [facility] (657[address]) Comment: Performed By: #### HEMOG, BM P3, MG3, TROPN #### [facility] [address] [place] [address] Platelet mean volume (Bld) 8.2 7.4-10.4 fL Normal [facility] [Entitic vol] (19003 ) Comment: Performed By: #### HEMOG, BM P3, MG3, TROPN #### [facility] [address] [place] [address] Platelets (Bld) [#/Vol] 283 140-440 10*3/uL Normal 2019 [facility] (73757) Comment: Performed By: #### HEMOG, BM P3, MG3, TROPN #### [facility] [address] [place] [address] RBC (Bld) [#/Vol] 4.72 3.80-5.20 10*6/uL Normal 12-11-2019 [facility] ([address]) Comment: Performed By: #### HEMOG, BM P3, MG3, TROPN #### [facility] [address] [place] [address] WBC (Bld) [#/Vol] 10.5 3.6-10.7 10*3/uL Normal 12-11-2019 [facility] ([id number]) Comment: Performed By: #### HEMOG, BM P3, MG3, TROPN #### [facility] [address] [place] [address] cr chest pa/lat on 2019-12-11 CR Chest PA/LAT Patient Name: SHIRLEY HYLTON 12-11-2019 [facility] ([id number]) Diagnostic Radiology Exam Date/Time 12/11/2019 04:17:40 EST Exam CR Chest PA/LAT Ordering Physician SHOAIB PEACOCK Accession Number [id number] CPT4 Codes 94113 () Reason For Exam chest pain Report EXAM: CR Chest PA/LAT INDICATION: Chest pain VIEWS: Frontal and lateral COMPARISON: 08/03/2019 TIME: 4:01 on 12/11/2019 FINDINGS AND IMPRESSION: No radiographic acute cardiopulmonary process. The trachea is midline. The cardiomediastinal silhouette is within normal limits. No confluent consolidation. Report Dictated on Workstation: [id number] Final Dictating Physician: MD YUN JENNIFER R Signed Date and Time: 12/11/2019 4:50 am Signed by: MD YUN JENNIFER R Transcribed Date and Time: 12/11/2019 4:51 basic metabolic panel on 2019-12-11 Anion gap [Moles/Vol] 13 Normal 12-11-19 20 [facility] ([id number]) Comment: Performed By: #### HEMOG, BM P3, MG3, TROPN #### [facility] [address] [place] [address] Calcium [Mass/Vol] 10.0 8.4-10.4 mg/dL Normal 12-11-2019 [facility] ([id number]) Comment: Performed By: #### HEMOG, BM P3, MG3, TROPN #### [facility] [address] [place] [address] CO2 [Moles/Vol] 25 22-30 mmol/L Normal 12-11-2019 [facility] ([id number]) Comment: Performed By: #### HEMOG, BM P3, MG3, TROPN #### [facility] [address] [place] [address] Glucose [Mass/Vol] 168 70-100 mg/dL High 12-11-2019 [facility] ([id number]) Comment: Performed By: #### HEMOG, BM P3, MG3, TROPN #### [facility] [address] [place] [address] Urea nitrogen [Mass/Vol] 19 7-20 mg/dL Normal 12-11 [facility] (11323) Comment: Performed By: #### HEMOG, BM P3, MG3, TROPN #### [facility] [address] [place] [address] Creatinine [Mass/Vol] 0.66 0.52-1.25 mg/dL Normal 12-11-19 [facility] (44786) Comment: Performed By: #### HEMOG, BM P3, MG3, TROPN #### [facility] [address] [place] [address] GFR/1.73 sq M > 60.0 >60 mL/min/{1.73_m2} Normal 0 [facility] predicted among Syst em (20328) blacks MDRD (S/P/Bld) [Vol rate/Area] Comment: Performed By: #### HEMOG, BM P3, MG3, TROPN #### [facility] [address] [place] [address] GFR/1.73 sq M > 60.0 >60 mL/min/{1.73_m2} Normal 0 [facility] predicted among Syst em (46428) non-blacks MDRD (S/P/Bld) [Vol rate/Area] Comment: Result Comment: Source- MDRD equation with creatinine calibration to IDMS(NKDEP) eGFR not recommended for crissy g dose adjustment Performed By: #### HEMOG, BM P3, MG3, TROPN #### [facility] [address] [place] [address] Potassium [Moles/Vol] 4.2 3.5-5.1 mmol/L Normal 12-11-19 [facility] ([id number]) Comment: Performed By: #### HEMOG, BM P3, MG3, TROPN #### [facility] [address] [place] [address] Chloride [Moles/Vol] 98 mmol/L Normal 0 [facility] ([id number]) Comment: Performed By: #### HEMOG, BM P3, MG3, TROPN #### [facility] [address] [place] [address] Sodium [Moles/Vol] 136 mmol/L Normal 12-11-2019 [facility] ([id number]) Comment: Performed By: #### HEMOG, BM P3, MG3, TROPN #### [facility] [address] [place] [address] No panel information on 2019-12-11 Troponin I.cardiac [Mass/Vol] <0.012 0 - 0.034 ng/mL 12-11-2019 [facility] ([id number]) Comment: . Test Performed by [facility] 2019 [facility] ([id number]) [facility], [address] [place], [place] [address] Patient Name: CONCETTA, 12-11-[address] [facility] ([id number]) SHIRLEY Plunkett ---Diagnostic Radiology--- Exam Date/Time 12/11/2019 04:17:40 EST Exam CR Chest PA/LAT Ordering Physician SHOAIB PEACOCK Accession Number [id number] CPT4 Codes 37573 () Reason For Exam chest pain Report EXAM: CR Chest PA/LAT INDICATION: Chest pain VIEWS: Frontal and lateral COMPARISON: 08/03/2019 TIME: 4:01 on 12/11/2019 FINDINGS AND IMPRESSION: No radiographic acute cardiopulmonary process. The trachea is midline. The cardiomediastinal silhouette is within normal limits. No confluent consolidation. Report Dictated on Workstation: [id number] --- Final --- Dictating Physician: MD YUN JENNIFER R Signed Date and Time: 12/11/2019 4:50 am Signed by: MD YUN JENNIFER R Transcribed Date and Time: 12/11/2019 4:51 [place], [facility] - 2019 4:51 AM EST 12-11-2019 [facility] ([id number]) Patient Name: SHIRLEY HYLTON ---Diagnostic Radiology--- Exam Date/Time 12/11/2019 04:17:40 EST Exam CR Chest PA/LAT Ordering Physician SHOAIB PEACOCK Accession Number [id number] CPT4 Codes 17617 () Reason For Exam chest pain Report EXAM: CR Chest PA/LAT INDICATION: Chest pain VIEWS: Frontal and lateral COMPARISON: 08/03/2019 TIME: 4:01 on 12/11/2019 FINDINGS AND IMPRESSION: No radiographic acute cardiopulmonary process. The trachea is midline. The cardiomediastinal silhouette is within normal limits. No confluent consolidation. Report Dictated on Workstation: [id number] --- Final --- Dictating Physician: MD YUN JENNIFER R Signed Date and Time: 12/11/2019 4:50 am Signed by: MD YUN JENNIFER R Transcribed Date and Time: 12/11/2019 4:51 Troponin <0.012 0 - 0.034 ng/mL 12-11-2019 [facility] ([id number]) I.cardiac [Mass/Vol] Comment: . Test Performed by 12-11-[address] [facility] ([id number]) [facility], [address] [place] [address] Anion gap 13 mmol/L 12-11-2019 [facility] (84 463) [Moles/Vol] Calcium [Mass/Vol] 10.0 8.4 - 10.4 mg/dL 12-11-2019 [facility] ([id number]) CO2 [Moles/Vol] 25 22 - 30 mmol/L 12-11-2019 [facility] (70135) Creatinine 0.66 0.52 - 1.25 mg/dL 12-11-2019 [facility] ([id number]) [Mass/Vol] EGFR IF NonAfrican >60.0 >60 mL/min 12-11-2019 [facility] ([id number]) [place] Comment: Source- MDRD equation with c reatinine calibration to IDMS(NKDEP) eGFR not recommended for crissy g dose adjustment GFR/1.73 sq M >60.0 >60 mL/min mL/min/{1.73_m2} 12-11-19 [facility] predicted among (443 03) blacks MDRD (S/P/Bld) [Vol rate/Area] Glucose [Mass/Vol] 168 70 - 100 mg/dL High 12-11-2019 [facility] (97718) Interpretation and Abnormal 12-11-2019 [facility] review of (33399) laboratory results Magnesium 1.7 1.6 - 2.3 mg/dL 12-11-2019 [facility] [Mass/Vol] (31316) Potassium 4.2 3.5 - 5.1 mmol/L 12-11-2019 [facility] [Moles/Vol] (29748) Urea nitrogen 19 7 - 20 mg/dL 12-11-2019 [facility] [Mass/Vol] (23477) Test 12-11-2019 [facility] Performed by ([id number]) [facility], [address] , [place], [place] [address] Erythrocyte 14.1 11.5 - % 12-11-2019 [facility] distribution width 14.5 ( 79265) (RBC) [Ratio] Hematocrit (Bld) 39.7 35 - 47 % 12-11-2019 [facility] [Volume fraction] (4 4303) Hemoglobin (Bld) 13.5 11.7 - 16 g/dL 12-11-2019 [facility] [Mass/Vol] (04125) MCH (RBC) [Entitic 28.7 26 - 34 pg 12-11-2019 [facility] mass] (15011) MCHC (RBC) 34.1 32 - 36 % 12-11-2019 [facility] [Mass/Vol] (03977) MCV (RBC) [Entitic 84.1 79 - 98 fL 12-11-2019 [facility] vol] (28573) Platelet mean 8.2 7.4 - 10.4 fL 12-11-2019 [facility] A volume (Bld) (74721) [Entitic vol] Platelets (Bld) 283 140 - 440 10*3/uL 12-11-2019 [facility] [#/Vol] (04024) RBC (Bld) [#/Vol] 4.72 3.8 - 5.2 10*6/uL 12-11-2019 [facility] (40721) WBC (Bld) [#/Vol] 10.5 3.6 - 10.7 10*3/uL 12-11-2019 [facility] (00520) Test 12-11-2019 [facility] Performed by ([id number]) [facility], [address] , [place], [place] [address] mg breast tomosynthesis scr bl on 2019-08-17 MG Breast Patient Name: SHIRLEY HYLTON Normal 1 [facility] Tomosynthesis Scr Bl System ([id number]) Mammography Exam Date/Time 08/17/2019 08:00:00 EDT Exam MG Breast Tomosynthesis BI Scr Ordering Physician FELECIA ANGELES HOLLY S Accession Number [id number] CPT4 Codes 56141 (MG Breast Tomosynthesis Scr Bl), 00117 (MG MAMMO 2D S CREENING) Reason For Exam screening Report PATIENT HISTORY: Family history of prostate cancer at age 60 in father. Took hormonal contraceptives for 5 years. Patient has never smoked. Patient's BMI is 39.5. TIME SINCE LAST MAMMOGRAM: Last mammogram was performed 2 ye ars and 6 months ago. REASON FOR EXAM: screening, asymptomatic. PROCEDURE: MG BREAST TOMOSYNTHESIS BL SCR: AUGUST 17, 2019 - 2D/3D Procedure 3D Bilateral CC and MLO view(s) were taken. 2D Bilateral CC and MLO view(s) were taken. Prior study comparison: February 25, 2017, bilateral MG mammogram digital screening performed at [facility]. June 05, 2010, bilateral scre ening mammogram performed at [facility]. TISSUE DENSITY: There are scattered fibroglandular densities . . FINDINGS: No suspicious masses, architectural distortions or suspiciou sly clustered microcalcifications are identified. There is no evidence of skin thickening or nippl e retraction. There are no significant changes when compared with prior st udies. Markings on images: BB's = Nipples; skin lesions Open [place] = Palpable Line = Scar 2D digital mammography and tomosynthesis imaging were perfor med and reviewed with CAD. ASSESSMENT: Category 1 Negative No mammographic evidence of malignancy. RECOMMENDATION: Routine screening mammogram of both breasts in 1 year. . Report Dictated on Cancer Risk Assessment: This risk assessment is based on patient provided informatio n collected in a risk survey taken at the time of this examination. Lifetime breast cancer risk: 9.7% - If greater than or equal to 20%, consider annual mammogram and annual screening Breast MRI or follow up in high risk clinic. Is the patient at elevated risk based on the HBOC criteria? No (Hereditary Breast and Ovarian Cancer) - If yes, consider genetic counseling and testing with hig h risk follow up. HNPCC mutation risk (Beauchamp Syndrome): 1.1% - if greater than or equal to 5%, consider genetic counselin g, testing and screening colonoscopy. Final Signed Date and Time: 08/17/2019 9:22 am Signed by: MD BOYD LAURA xr knee 1 or 2 views right on 2019-03-01 XR KNEE 1 OR 2 ORIGINAL Normal 03-01-2019 [facility] VIEWS RIGHT XR KNEE 1 OR 2 VIEWS RIGHT [facility] ([place]) (83332) CLINICAL STATEMENT: Status Post Arthroplasty COMPARISON: CT, 02/04/2019 FINDINGS: The medial tibiofemoral comp artment arthroplasty seen. Skin leonel noted. There is air and fluid in the joint space and soft tissues. IMPRESSION: Anatomic alignment of the medial tibiofemoral compartment ar throplasty Interpreted By: Lamine Enriquez MD Preliminary Report By: Lamine Enriquez MD Electronically Signed By: Lamine Enriquez MD Dictated Date: 03/01/2019 10:13:23 AM Prelim Date: 03/01/2019 10:13:23 AM Sign Date: 03/01/2019 10:14:38 AM cbc on 2019-02-17 Erythrocyte distribution 13.5 11.5-14.5 % Normal 02-17 [facility] width Ratio (RBC) [facility] ([place]) (18791) Comment: Performed By: #### BMP, GFR, A1C #### [address] [address] #### ADIFF, CBC, ANEU #### [address] [address] Hematocrit Volume 40.0 37.0-47.0 % Normal 02-17-2019 [facility] Fraction (Bld) ([place]) (37271) Comment: Performed By: #### BMP, GFR, A1C #### [address] [address] #### ADIFF, CBC, ANEU #### [address] [address] Hemoglobin mass conc 13.5 12.0-16.0 G/dL Normal 9 [facility] (d) [facility] ([place]) ([address]21) Comment: Performed By: #### BMP, GFR, A1C #### [place] [address] #### ADIFF, CBC, ANEU #### [address] [address] MCH Entitic mass (RBC) 28.6 27.0-31.2 pg Normal 019 [facility] ([place]) (0000 0) Comment: Performed By: #### BMP, GFR, A1C #### [place] [address] #### ADIFF, CBC, ANEU #### [address] [address] MCHC mass conc (RBC) 33.8 33.0-37.0 G/dL Normal 9 [facility] ([place]) (0000 0) Comment: Performed By: #### BMP, GFR, A1C #### [place] [address] #### ADIFF, CBC, ANEU #### [address] [address] MCV Entitic volume 84.7 80.0-94.0 fL Normal 02-17-2019 [facility] (RBC) ([place]) (0000 0) Comment: Performed By: #### BMP, GFR, A1C #### [place] [address] #### ADIFF, CBC, ANEU #### [address] [address] Platelet mean volume 8.5 7.4-10.4 fL Normal 9 [facility] Entitic volume (Bld) ([place]) (78407) Comment: Performed By: #### BMP, GFR, A1C #### [place] [address] #### ADIFF, CBC, ANEU #### [address] [address] Platelets #/vol (Bld) 264 130-400 10 3/[facility] Normal 02-18-20 19 [facility] ([place]) ([address]010) Comment: Performed By: #### BMP, GFR, A1C #### [place] [address] #### ADIFF, CBC, ANEU #### [address] [address] RBC #/vol (Bld) 4.72 4.20-5.40 10 6/[facility] Normal 02-17-2019 [facility] ([place]) (0000 0) Comment: Performed By: #### BMP, GFR, A1C #### [place] [address] #### ADIFF, CBC, ANEU #### [address] [address] WBC #/vol (Bld) 8.50 4.60-10.80 10 3/[facility] Normal 02-17-2019 [facility] ([place]) (0000 0) Comment: Performed By: #### BMP, GFR, A1C #### [place] [address] #### ADIFF, CBC, ANEU #### [address] [address] bmp on 2019-02-17 Calcium mass conc 9.7 8.4-10.2 mg/dL Normal 02-17-2019 [facility] ([place]) (45173) Comment: Performed By: #### BMP, GFR, A1C #### [place] [address] #### ADIFF, CBC, ANEU #### [address] [address] Chloride molar conc 101 98-107 mmol/L Normal 02-17-2019 [facility] ([place]) (0000 0) Comment: Performed By: #### BMP, GFR, A1C #### [place] [address] #### ADIFF, CBC, ANEU #### [address] [address] CO2 molar conc 28 22-29 mmol/L Normal 02-17-2019 [facility] ([place]) (15526) Comment: Performed By: #### BMP, GFR, A1C #### [place] [address] #### ADIFF, CBC, ANEU #### [address] [address] Creatinine mass conc 0.88 0.55-1.02 mg/dL Normal 9 [facility] ([place]) (0000 0) Comment: Performed By: #### BMP, GFR, A1C #### [place] [address] #### ADIFF, CBC, ANEU #### [address] [address] Electrolyte Balance 9.0 mEq/L Normal 02-17-2019 [facility] ([place]) (42751) Comment: Performed By: #### BMP, GFR, A1C #### [place] [address] #### ADIFF, CBC, ANEU #### [address] [address] Glucose mass conc 129 70-105 mg/dL High 02-17-2019 [facility] ([place]) (24093) Comment: Performed By: #### BMP, GFR, A1C #### [place] [address] #### ADIFF, CBC, ANEU #### [address] [address] Potassium molar conc 4.5 3.5-5.1 mmol/L Normal 9 [facility] ([place]) (0000 0) Comment: Performed By: #### BMP, GFR, A1C #### [place] [address] #### ADIFF, CBC, ANEU #### [address] [address] Sodium molar conc 138 136-145 mmol/L Normal 02-17-2019 [facility] ([place]) (97612) Comment: Performed By: #### BMP, GFR, A1C #### [address] [address] #### ADIFF, CBC, ANEU #### [address] [address] Urea nitrogen mass conc 21 7-18 mg/dL High 2018 [facility] ([place]) (48315) Comment: Performed By: #### BMP, GFR, A1C #### [place] [address] #### ADIFF, CBC, ANEU #### [address] [address] Urea nitrogen/Creatinine mass 24 7-27 ratio Normal 02-17-2019 [facility] ([place]) (50914) Comment: Performed By: #### BMP, GFR, A1C #### [place] [address] #### ADIFF, CBC, ANEU #### [address] [address] a1c on 2019-02-17 Hemoglobin A1c/Hemoglobin.total 7.3 4.5-6.2 % High 02-17-2019 [facility] ([facility]) [facility] ([place]) (99169) Comment: Performed By: #### BMP, GFR, A1C #### [place] [address] #### ADIFF, CBC, ANEU #### [address] [address] .neuabs on Neutrophils #/vol 5.70 2.85-6.16 10 3/mcL Normal 02-17-2019 [facility] (d) [facility] ([place]) (47317) Comment: Performed By: #### BMP, GFR, A1C #### [place] [address] #### ADIFF, CBC, ANEU #### [place] [address] [place], [place] [address] .gfr on 2019-02-17 GFR 82 ml/min/1.73sqm Normal 01-25 [facility] ([place]) (0000 0) Comment: Result Comment: GFR Population mean for Afri can Mauritian, Non- Americans Ages 20-29 = 116 mL/min/1.73 sq.m. Ages 30-39 = 107 mL/min/1.73 sq.m. Ages 40-49 = 99 mL/min/1.73 sq.m. Ages 50-59 = 93 mL/min/1.73 sq.m. Ages 60-69 = 85 mL/min/1.73 sq.m. Ages 70+ = 75 mL/min/1.73 sq .m. Chronic Kidney Disease: Less than 60 mL/min/1.73 square meters End Stage Renal Disease: Les s than 15 mL/min/1.73 square meters Performed By: #### BMP, GFR, A1C #### [place] [address] #### RICCARDO, CBC, ANEU #### [place] [address] [place], [place] [address] GFR Non- 67 ml/min/1.73sqm Normal 02-17-2019 [facility] ([place]) (44079) Comment: Result Comment: GFR Population mean for Afri can Mauritian, Non- Americans Ages 20-29 = 116 mL/min/1.73 sq.m. Ages 30-39 = 107 mL/min/1.73 sq.m. Ages 40-49 = 99 mL/min/1.73 sq.m. Ages 50-59 = 93 mL/min/1.73 sq.m. Ages 60-69 = 85 mL/min/1.73 sq.m. Ages 70+ = 75 mL/min/1.73 sq .m. Chronic Kidney Disease: Less than 60 mL/min/1.73 square meters End Stage Renal Disease: Les s than 15 mL/min/1.73 square meters Performed By: #### BMP, GFR, A1C #### [place] [id number] #### ADIFF, CBC, ANEU #### [address] [address] .auto diff on 02-17 Ammonia mass conc 0.50 0.15-1.00 10 3/mcL Normal 02-17-2019 [facility] () [facility] ([place]) (83033) Comment: Performed By: #### BMP, GFR, A1C #### [place] [address] #### ADIFF, CBC, ANEU #### [address] [address] Basophils #/vol (Bld) 0.00 0.00-0.19 10 3/[facility] Normal 02-18-20 19 [facility] ([place]) (84358) Comment: Performed By: #### BMP, GFR, A1C #### [place] [address] #### ADIFF, CBC, ANEU #### [address] [address] Basophils/100 WBC (Bld) 0.5 0.0-2.5 % Normal 2018 [facility] ([place]) (0000 0) Comment: Performed By: #### BMP, GFR, A1C #### [place] [address] #### ADIFF, CBC, ANEU #### [address] [address] Eosinophils #/vol 0.20 0.00-0.40 10 3/[facility] Normal 02-17-2019 [facility] ([facility]) [facility] ([place]) ([address]410) Comment: Performed By: #### BMP, GFR, A1C #### [place] [address] #### ADIFF, CBC, ANEU #### [address] [address] Eosinophils/100 WBC (Bld) 2.0 0.0-7.0 % Normal 01-25 [facility] ([place]) (0000 0) Comment: Performed By: #### BMP, GFR, A1C #### [place] [address] #### ADIFF, CBC, ANEU #### [address] [address] Lymphocytes #/vol 2.10 0.77-3.85 10 3/mcL Normal 02-17-2019 [facility] ([place]) ([address]197) Comment: Performed By: #### BMP, GFR, A1C #### [place] [address] #### ADIFF, CBC, ANEU #### [address] [address] Lymphocytes/100 WBC (Bld) 25.3 10.0-50.0 % Normal 01-25 [facility] ([place]) (62319) Comment: Performed By: #### BMP, GFR, A1C #### [place] [address] #### ADIFF, CBC, ANEU #### [address] [address] Monocytes/100 WBC (Bld) 5.8 1.7-13.0 % Normal 2018 [facility] ([place]) (0000 0) Comment: Performed By: #### BMP, GFR, A1C #### [place] [address] #### ADIFF, CBC, ANEU #### [address] [address] Neutrophils/100 WBC (Bld) 66.4 37.0-80.0 % Normal 01-25 [facility] ([place]) (28459) Comment: Performed By: #### BMP, GFR, A1C #### [place] [address] #### ADIFF, CBC, ANEU #### [address] [address] [address] knee w/o contrast right on 2019-02-04 CT KNEE W/O ORIGINAL Normal 02-04-2019 [facility] CONTRAST RIGHT CT KNEE W/O CONTRAST RIGHT [facility] ([place]) ([address]25) CLINICAL STATEMENT: Chondromalacia RT KNEE COMPARISON: None FINDINGS: This exam was performed acco rding to our departmental dose-optimization program which includes automated exposure control, adjustment of the mA and/or kVp according to patient size and/or use of iterati ve reconstruction technique where applicable. Severe medial tibiofemoral c ompartment joint space loss and subchondral cyst formation noted. There is mild to moderate patellofemoral joint space loss and spurring. The lateral tibiofemoral compartment is relatively preserved. There is no aggressive osseous l esion identified. A moderate joint effusion no marciano. There is exaggerated lateral tilt of the patella. Survey axial images of the h ip demonstrate mild degenerative changes. There are enthesophytes at the RIGHT ischial tuberosity. Survey images also obtained of the ankle. There are enthesophytes at the Achilles insertion. IMPRESSION: 1. Degenerative changes in t he knee are most pronounced in the medial tibiofemoral compartment. 2. Moderate joint effusion in the knee Interpreted By: Lamine Enriquez MD Preliminary Report By: Lamine Enriquez MD Electronically Signed By: Lamine Enriquez MD Dictated Date: 02/04/2019 10:54:11 AM Prelim Date: 02/04/2019 10:54:11 AM Sign Date: 02/04/2019 11:01:19 AM Vital Signs Vital Sign Description Value / Unit Date Location The following section is limited to 5 en tries per type and includes entries from the following time range: 20191211 - 1. BMI (Body Mass Index) 40.43 kg/m2 06-26-2020 [place] ([address]) BMI (Body Mass Index) 43.46 kg/m2 12-11-2019 [facility] (443 03) Body Temperature 98.1 [degF] 06-26-2020 [place] ([address]) Body Temperature 98.4 [degF] 03-31-2020 [place] ([address]) Body Temperature 98.01 [degF] 12-11-2019 [facility] (98564) Body weight 97.07 kg 06-26-2020 [place] ([address]) Body weight 104.33 kg 12-11-2019 [facility] (05716) BP Diastolic 51 mm[Hg] 06-26-2020 [place] ([address]) BP Diastolic 61 mm[Hg] 04-01-2020 [place] ([address]) BP Diastolic 55 mm[Hg] 12-11-2019 [facility] (23156) BP Systolic 102 mm[Hg] 06-26-2020 [place] ([address]) BP Systolic 129 mm[Hg] 04-01-2020 [place] ([address]) BP Systolic 113 mm[Hg] 12-11-2019 [facility] (41894) Height 154.9 cm 06-26-2020 [place] ([address]) Height 154.9 cm 12-11-2019 [facility] (24579) Pulse (Heart Rate) 93 /min 06-26-2020 [place], [place] ([address]) Pulse (Heart Rate) 89 /min 04-01-2020 [place] ([address]) Pulse (Heart Rate) 72 /min 12-11-2019 [facility] (29056) Pulse Oximetry 96 % 06-26-2020 [place] ([address]) Pulse Oximetry 95 % 04-01-2020 [place] ([address]) Pulse Oximetry 97 % 12-11-2019 [facility] (81737) Respiratory Rate 18 /min 06-26-2020 [place] ([address]) Respiratory Rate 16 /min 04-01-2020 [place] ([address]) Respiratory Rate 13 /min 12-11-2019 [facility] (11131) Encounters Date Type Reason Provider Location 04-20-2018 Ambulatory Fever, unspecified [facility]3] (0000 0) Steven Antunez 03-31-2020 - Emergency Fatigue Rik Mary Ellen Ravi Rogel 04-01-2020 department patient visit Comment: Fatigue, unspecified type (P rimary Dx); Headache disorder 12-11-2019 - Emergency department Chest pain Shoaib Arenas Ravi Romero ED 12-11-2019 patient visit Comment: Chest pain, unspecified type (Primary Dx) 01-07-2018 Evaluation and Bacteremia [facility] (000 00) inpatient ELAINE M RENNY 02-24-2019 Patient encounter Phamgilberto Myrick Faci lity:9464 procedure Christian PCP UNKNOWN PCP UNKNOWN 12-02-2018 Patient encounter Phamgilberto Myrick Faci lity:9464 procedure Christian PCP UNKNOWN PCP UNKNOWN 09-02-2018 Patient encounter Phamgilberto Myrick Faci lity:9464 procedure Christian PCP UNKNOWN PCP UNKNOWN 07-15-2018 Patient encounter Phamgilberto Myrick Faci lity:9464 procedure Christian PCP UNKNOWN PCP UNKNOWN 04-08-2018 Patient encounter Pham Myrick Faci lity:9464 procedure Christian Pham Myrick Christian Phamgilberto Myrick Christian PCP UNKNOWN [facility]2020 [facility] by physician Endo Comment: Arrived 01-09-2020 - Subsequent hospital Acute ankle Sofiejordan [facility] josse 01-09-2020 visit by physician [facility] Comment: Acute left ankle pain Procedures Procedure Name Date Provider Location Colonoscopy 06-26-2020 3m [place] ([address]) Gluc bld gluc mntr dev 06-26-2020 [place], [place] cleared fda spec home use ([address] ) Ct head/brain w/o contrast 04-01-2020 [place], [place] material ([address]) Urnls dip stick/tablet rgnt 03-31-2020 [place], [place] auto w/o microscopy (25465) Assay of magnesium 03-31-2020 [place], [place] ([address]) Basic metabolic panel 03-31-2020 [place], [place] calcium total ([address]651) Blood count complete 03-31-2020 [place] auto&auto difrntl wbc ([address]503) Prothrombin time 03-31-2020 [place], [place] ([address]) Sedimentation rate rbc 03-31-2020 [place], [place] automated ([address]) Gluc bld gluc mntr [facility] [place] [place] [facility] [place] home use (9[address]02 ) Radiologic examination ankle 01-09-2020 Sofie Pack r [place], [place] 2 views ([address]) Follow-up visit 12-27-2019 [facility] (0 0000) Assay of troponin 12-11-2019 Shoaib T Dagoberto [facility] (90351) quantitative Radiologic exam chest 2 12-11-2019 Shoaib T Seaforth [facility] ( 16792) views Assay of magnesium 12-11-2019 Shoaib T Seaforth [facility] (97250 ) Assay of troponin 12-11-2019 Shoaib T Seaforth [facility] (56814) quantitative Basic metabolic panel 12-11-2019 Shoaib T Dagoberto [facility] (44 303) calcium total Blood count complete 12-11-2019 Shoaib T Dagoberto [facility] (443 03) automated Ecg routine ecg w/least 12 12-11-2019 Shoaib T Seaforth [facility] (57122) lds w/i&r Follow-up visit 06-23-2019 [facility] (0 0000) Follow-up visit 02-24-2019 [facility] (0 0000) Plan of Treatment Plan Description Date Location DTaP/Tdap/Td vaccine (2 - DTaP/Tdap/Td vaccine (2 - 11-03-2028 - [facility] (39484) Td) Td) 11-03-2028 Breast cancer screen Breast cancer screen 08-17-2021 - [facility] (39299) 08-17-2021 Breast cancer screen Breast cancer screen 08-17-2021 - [facility], 08-17-2021 [place] ([address]) Lipid screen Lipid screen 05-15-2021 [place], [place] ([address]) Creatinine monitoring Creatinine monitoring 04-02-2021 [place] ([address]) A1C test (Diabetic or A1C test (Diabetic or 04-02-2021 [facility], Prediabetic) Prediabetic) [place] ([address]) Potassium monitoring Potassium monitoring 04-02-2021 [place] ([address]) Creatinine monitoring Creatinine monitoring 12-11-2020 [place] ([address]) Creatinine monitoring Creatinine monitoring 12-11-2020 - [facility] (89333) 12-11-2020 Potassium monitoring Potassium monitoring 12-11-2020 [facility] (31408) 12-11-2020 Diabetic foot exam Diabetic foot exam 11-02-2020 - [facility] (443 03) 11-02-2020 A1C test (Diabetic or A1C test (Diabetic or 11-02-2020 - [facility] (85783) Prediabetic) Prediabetic) 11-02-2020 Diabetic foot exam Diabetic foot exam 11-02-2020 - [facility], 11-02-2020 [place] ([address]) Diabetic microalbuminuria Diabetic microalbuminuria 11-02-2020 - [facility] (40988) test test 11-02-2020 A1C test (Diabetic or A1C test (Diabetic or 11-02-2020 [facility], Prediabetic) Prediabetic) [place] ([address]) Flu vaccine (#1) no information 11-02-[address] 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 [employer] [address] [place] [address] [phone] Colon cancer screen Colon cancer screen 04-16-2020 - [facility] (6 4981) colonoscopy colonoscopy 04-16-2020 Colon cancer screen Colon cancer screen 04-16-2020 - [facility], colonoscopy colonoscopy 04-16-2020 [place] ([address]) Office Visit no information 02-01-2020 - [facility] 02-01-2020 [facility] Diabetic retinal exam Diabetic retinal exam 02-15-2019 - [facility] (05906) 02-15-2019 EKG 12 Lead EKG 12 Lead ECG STAT [facility] (4430 3) 12/11/2019 3:36 AM EST Surgical Pathology Surgical Pathology Lab [facility], Routine 06/26/2020 [place] ([address]) 8:23 AM EDT Surgical Pathology Surgical Pathology Lab 06-26-2020 [facility], Routine Once for 1 [place] ([address]) Occurrences starting 06/26/2020 until 06/26/2020 Comment: Once for 1 Occurrences start ing 06/26/2020 until 06/26/2020 Immunizations Vaccine Notes Status Date Location Hepatitis B Adult hepatitis B vaccine, (completed) 01-25-1992 - [facility] (53554) (Engerix-B) adult dosage 01-25-1992 Hepatitis B Adult hepatitis B vaccine, (completed) 08-31-1991 - [facility] (54738) (Engerix-B) adult dosage 08-31-1991 Hepatitis B Adult hepatitis B vaccine, (completed) 07-27-1991 - [facility] (71086) (Engerix-B) adult dosage 07-27-1991 Influenza Vaccine, Influenza Vaccine, (completed) 07-26-2015 - [facility] [place] (11201) unspecified formulation unspecified formulation 2014 Influenza, Quadv, 6 mo Influenza, Quadv, 6 mo (completed) 11-03-19 19 - [facility] (87878) and older, IM, PF and older, IM, PF 11-03-2018 (Flulaval, Fluarix) (Flulaval, Fluarix) Pneumococcal pneumococcal (completed) 11-03-2018 - [facility] (80690) Polysaccharide polysaccharide vaccine, 11-03-2018 ([id number]) 23 valent Tdap (Boostrix, Adacel) tetanus toxoid, reduced (completed) 2018 - [facility] (49638) diphtheria toxoid, and 11-03-2018 acellular pertussis vaccine, adsorbed Zoster Recombinant zoster vaccine (completed) 06-03-2019 [facility] ( 08477) (Shingrix) recombinant 06-03-2019 Zoster Recombinant zoster vaccine (completed) 01-31-2019 - [facility] ( 71872) (Shingrix) recombinant 01-31-2019 Payers Payer Name Policy Number Location [facility]3] ([id number]) [facility] xxxxxxxxx [facility] ([id number]) [facility] [id number] [facility] ([id number]) HEALTHCARE [id number] [facility] ([id number]) [id number] [facility] ([id number]) [id number] [facility] ([id number]) [id number] [facility] ([id number]) [id number] [facility] ([id number]) The following information is from the original human readable contentNo Payer Records FoundNo Payer Records FoundNo Payer Records FoundNo Payer Records FoundNo Payer Records Found Social History Type Social History Date Location Description Alcohol intake Current drinker of 12-11-2019 [facility] (37351) alcohol (finding) 06-26-2020 History SDOH Transport 2 08-03-2019 [facility] (44 303) Med 08-03-2019 History SDOH Physical 3 08-03-2019 [facility] (443 03) Activity DPW 08-03-2019 History SDOH Financial 5 08-03-2019 [facility] (44 303) 08-03-2019 History SDOH Food Worry 1 08-03-2019 [facility] (4 4303) 08-03-2019 Tobacco smoking status Never smoker 12-11-[address] [facility] (44 303) NHIS 06-26-2020 Alcohol Comment socially 12-26-2015 - [facility] (35554) 12-26-2015 Sex Assigned At Not on file [facility] (443 03) Exposure to SARS-CoV-2 Unable to assess [place], [place] (event) ([address]) Tobacco use and Never used 06-26-2020 [place] exposure ([address]) Exposure to SARS-CoV-2 Not sure [place] (event) ([address]) The following information is from the original human readable contentNo Social History Records FoundNo Social History Records FoundNo Social History Records FoundNo Social History Records FoundNo Social History Records FoundNo Social History Records FoundNo Social History Records FoundNo Social History Records FoundNo Social History Records Found Goals Patient Goal Desired Goal Comment: Diabetes Education/ Self- Ma nagement Plan: Patient Stated Goal: To have healthy blood sugars. Goals Discussion/Provider Go al: A1C less than 7, Total Cholesterol less than 200, HDL greater than 40, blood pressure less than 130/80, weight within appropriate range for height, BMI within approprate range, FBS within 70-130 ran ge. Nutrition Discussion: Carb c ounting discussion, reading food labels education, portion control explanation, and smart snacking discussion addressed. Eye Care Discussion: Saray ged yearly exam. Foot Care Discussion: Encour aged yearly podiatric focused exam. Exercise Discussion: Discuss ed with patient how physical activity helps manage blood sugar levels better. Encouraged 20-30 minutes of physical activity most days of the week. Barriers to Success: stress Plan for Overcoming Barriers : Take medications as prescribed and continue healthy diet and exercise. Encouraged and recommended by provider. Confidence to Achieve Goal: 03/04 Date Goat Set: 08/03/2019 Patient was given education materials on healthy diet and diabetes management- see AVS. Patient received counseling about current lifestyle goal. Advised approximately 150 minutes of cardio, i.e treadmi ll, exercise in a week. Advi sed strive for 5 a total 5 servings of fruits and vegetables in a day. Advised a diet lower in carbohydrates and simple sugars. They need to watch consumption of bread, sebastien e, pasta, potatoes, corn, so da, sweetened tea, lemonade, and all other sugar drinks. Patient given after visit [facility] which includes educational information on Diabetes. Discussed use, benefit, and side effects of prescribed medications and barriers to medication compliance addressed, if applicable. All patient questions answered and patient voiced understanding. Deanna mackey was given a copy of this, and was advised to call if any questions. 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 Chest Pain (Armenian)documented in this encounterAttachmentsThe following attachments cannot be sent through Care Everywhere.Fatigue (Armenian)documented in this encounterInsDonna Edwards RN - 06/26/2020Colonoscopy: What to expect at home ACTIVITY: DO NOT DRIVE, OPERATE MACHINERY, OR DRINK ANY ALCOHOL TODAY. Avoid making critical decisions, signing legal documents, or performing any activity that requires alertness for the rest of the day. You may be bloated or have gas pains since air was introduced into the colon for the procedure. You may need to pass the gas throughout the day. You may experience a small amount of rectal bleeding; this can be normal after your colonoscopy. Notify your physician if the bleeding is enough to saturate your clothes. Rest the remainder of the day. You may resume normal activity tomorrow. You may return to work tomorrow. DIET: You may resume a normal diet unless notified or recommended by your physician. You may be eager to eat a large meal after fasting, but it is a good idea to start with light meals and ease into solid foods the first day. (*) If your stomach is upset, try clear liquids and bland, low-fat foods like plain toast or rice. Drink plenty of fluids for the first 24 hours (unless your physician states otherwise). MEDICATION: Resume your normal home medications unless notified or recommended by your physician. If you take blood thinners (such as Coumadin, Eliquis, Plavix, Aspirin, etc.) or anti-inflammatory medications (Advil, Motrin, Aleve, etc.), ask your physician when you may resume these medications. FOLLOW-UP APPOINTMENT: Follow up with or call your physician as needed. When to call for help: Call your doctor IMMEDIATELY or seek medical care if you experience: ? Severe pain or vomiting ? A large amount (filling the toilet) of maroon, bloody stools or tar-like stools ? Your belly is swollen and firm with severe pain ? A fever greater than 101 degrees ? Redness or swelling of arm from the IV site for more than 48 hours ? Sudden onset of chest pain or shortness of breath ? If you become extremely dizzy or pass out (lose consciousness) IF YOU ARE UNABLE TO REACH YOUR PHYSICIAN GO TO NEAREST EMERGENCY DEPARTMENT Colon Polyps You must carefully read the Consumer Information Use and Disclaimer below in order to understand and correctly use this information The Basics Written by the doctors and editors at [facility] What are colon polyps? ? Colon polyps are tiny growths that form on the inside of the large intestine (also known as the colon) (figure 1). Polyps are very common. Roughly one-third to one-half of all adults have them. They do not usually cause symptoms. But some polyps can be or become cancer, so doctors sometimes remove them. What are the symptoms of colon polyps? ? Colon polyps do not usually cause symptoms. How do doctors find colon polyps? ? Doctors usually find colon polyps when they are doing screening tests to check for colon or rectal cancer. Cancer screening tests are tests that are done to try and find cancer early, before a person has symptoms. The screening tests for colon and rectal cancer include: ?Colonoscopy ? Before having a colonoscopy, you will get medicine to help you relax. Then a doctor will put a thin tube into your anus and advance it into your colon (figure 2). The tube has a camera attached to it, so the doctor can look inside your colon. The tube also has tools on the end, so the doctor can remove pieces of tissue, including polyps. After polyps are removed, they usually go to a lab to be tested for cancer and other problems. ?Sigmoidoscopy ? A sigmoidoscopy is very similar to a colonoscopy. The only difference is that this test looks only at the first part of the colon, and a colonoscopy looks at the whole colon. ?CT colonography (also known as virtual colonoscopy) ? For a virtual colonoscopy, you have a specialkind of X-ray taken, called a CT scan. This test creates pictures of the colon. ?Barium enema ? During a barium enema, a doctor or nurse squirts a fluid that shows up on X-rays into your rectum. Then he or she takes X-rays to create pictures of the colon. ?Stool test ? Stool is another word for bowel movements. Stool tests check for blood or abnormalgenes in samples of stool. If a stool test indicates that something might be wrong with the colon, doctors usually follow up with a colonoscopy. Then doctors find polyps, if they are there. How are colon polyps treated? ? Doctors remove polyps using the same tools they use for a colonoscopy. They can remove polyps either by snipping them off with a special cutting tool, or by catching thepolyps in a noose (figure 3). Most polyps can be removed during a colonoscopy. But sometimes, large polyps need to be removed at a later time. What happens after I have polyps removed? ? You might need to have a colonoscopy every few years to check for more polyps. In some people polyps come back. And if you had the kind of polyps that could become cancer, your doctor will want to remove them as they appear. Also, if the polyps you had removed were the kind that could become cancer, people in your family might need to be checked for polyps and colon cancer, too. Can colon polyps be prevented? ? To reduce your chances of getting (more) polyps or colon cancer: ?Eat a diet that is low in fat and high in fruits, vegetables, and fiber ?Lose weight, if you are overweight ?Do not smoke ?Limit the amount of alcohol you drink All topics are updated as new evidence becomes available and our peer review process is complete. Topic 82454 Version 5.0 Release: 25.3 - C25.127 ? 2017 [employer]. All rights reserved. documented in this encounter Assessments Diagnosis Chest pain, unspecified type - Primary Diagnosis Acute left ankle pain Diagnosis Fatigue, unspecified type Headache disorder Headache Additional Source Comments FOR RECORDS PERTAINING TO PATIENTS WHO ARE OR HAVE BEEN ENROLLED IN A CHEMICAL DEPENDENCY/SUBSTANCE ABUSE PROGRAM, SOME INFORMATION MAY BE OMITTED. This clinical summary was aggregated from multiple sources. Caution should be exercised in using it in the provision of clinical care. This summary normalizes information from multiple sources, and as a consequence, information in this document may materially changethe coding, format and clinical context of patient data. In addition, data may be omittedin some cases. CLINICAL DECISIONS SHOULD BE BASED ON THE PRIMARY CLINICAL RECORDS. [facility] provides no warranty or guarantee of the accuracy or completeness of information in this document. UNRECOGNIZED CONTENT PROVIDED BELOW FOR UNRECOGNIZED SECTION INFORMATION SOURCE DATE CREATED AUTHOR AUTHOR'S ORGANIZATIO N 05/03/2018 [facility] DATE CREATED AUTHOR AUTHOR'S ORGANIZATIO N 03/02/2019 [facility] DATE CREATED AUTHOR AUTHOR'S ORGANIZATIO N 03/16/2019 [facility] ([place]) DATE CREATED AUTHOR AUTHOR'S ORGANIZATIO N 12/27/2019 [employer] DATE CREATED AUTHOR AUTHOR'S ORGANIZATIO N 08/10/2020 [facility] UNRECOGNIZED CONTENT PROVIDED BELOW FOR UNRECOGNIZED SECTION Reason for Visit Reason Comments Chest Pain 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
--- OUTSIDE RECORDS SUMMARY | 2020-08-12 12:13 | XMS RPT_ITS | CCD ---
:1965 External Reference #:[id number] Author Organization [facility] Care Team Providers Name Role Phone Hitesh Unavailable Unavailable Hitesh Unavailable Unavailable RENNY, M Unavailable Unavailable Hitesh Unavailable Unavailable Hitesh Unavailable Unavailable O'Evy Unavailable Unavailable Christian, Elyaderani Admitting Unavailable Christian, Elyaderani Attending Unavailable Christian, Elyaderani Referring Unavailable UNKNOWN Primary Care Unavailable Christian, [...] Cephalosporins (Antibiotic) Anxiety Mild 06-18-2015 - [facility] (66582) Penicillins Rash Mild 06-18-2015 - [facility] (24354) Sulfonamides (Antibiotic) Rash Mild 06-18-2015 - [facility] (98572) Medications Current Medications Medication Name Sig Date Prescriber Location Acetaminophen acetaminophen (AMINOFEN) 01-27-2019 Rashad Vieyra nd [facility] (01550) 325 MG tablet Take 2 tablets by mouth every 6 hours as needed for Pain 120 tablet 0 01/27/2019 Active ARIPiprazole ARIPiprazole (ABILIFY) 5 05-07-2015 Historical Provi karthik [facility] (73219) MG tablet Take 5 mg by mouth daily 0 05/07/2015 Active atorvastatin atorvastatin (LIPITOR) 02-01-2020 [facility] (20479) 20 MG tablet Indications: Other hyperlipidemia Take 1 tablet by mouth nightly 90 tablet 1 02/01/2020 Active atorvastatin (LIPITOR) 20 MG tablet Indications: Other 9 [facility] (38045) hyperlipidemia Take 1 tablet by mouth nightly 90 tablet 1 08/03/2019 Active Azithromycin azithromycin 12-09-2019 [facility] (86322) (ZITHROMAX) 250 MG tablet Take 2 tabs (500 mg) on Day 1, and take 1 tab (250 mg) on days 2 through 5. 1 packet 0 12/09/2019 Active Calcium Carbonate calcium carbonate 02-22-2018 Stephanie [facility] (23007) (OSCAL) 500 MG TABS tablet Take 1 tablet by mouth daily 90 tablet 0 02/22/2018 Active clonazePAM clonazePAM (KLONOPIN) 05-07-2015 Historical Provider [facility] (78194) 0.5 MG tablet Take 0.5 mg by mouth nightly . 0 05/07/2015 Active Diclofenac diclofenac sodium 04-02-2020 [facility] th- (VOLTAREN) 1 % [place], [place] ([address]) Indications: Arthritis of left ankle Apply 2 g topically 2 times daily To left ankle 1 Tube 3 04/02/2020 Active dulaglutide Dulaglutide 05-15-2020 [facility] (27734) (TRULICITY) 1.5 MG/0.5ML SOPN Inject 1.5 mg into the skin once a week 12 pen 3 05/15/2020 Active Dulaglutide (TRULICITY) 1.5 MG/0.5ML 11-03-2019 Sofie Molina oy Nettie [facility] (06383) SOPN Inject 1.5 mg into the skin once a week 12 pen 1 11/03/2019 Active erenumab Erenumab-aooe (AIMOVIG, Historical Provid er [facility] (99214) 140 MG DOSE,) 70 MG/ML SOAJ Inject into the skin every 30 days For migraines 0 Active Ergocalciferol Vitamin D, 02-01-2020 [facility] (53508) Ergocalciferol, 50 MCG (2000 UT) CAPS Indications: Vitamin D deficiency Take 1 capsule by mouth daily 90 capsule 1 02/01/2020 Active Vitamin D, Ergocalciferol, 2000 units CAPS Indications: 08-03-20 19 [facility] (99330) Vitamin D deficiency Take 1 capsule by mouth daily 90 capsule 1 08/03/2019 Active gabapentin gabapentin (NEURONTIN) 300 MG 11-02-2019 - 01-31-2020 [facility] (51139) capsule Indications: Arthritis Take 1 capsule by mouth 3 times daily for 90 days. 270 capsule 1 11/02/2019 Active glimepiride glimepiride (AMARYL) 4 MG tablet 05-15-2020 [facility] (92882) Take 2 tablets by mouth every morning 180 tablet 3 05/15/2020 Active glimepiride (AMARYL) 4 MG tablet Indications: Diabetes 0 [facility] (52688) mellitus type 2 in obese (HCC) Take 2 tablets by mouth every morning 180 tablet 1 02/01/2020 Active glimepiride (AMARYL) 4 MG tablet Indications: Diabetes 0 [facility] (71207) mellitus type 2 in obese (HCC) Take 2 tablets by mouth every morning 180 tablet 0 11/11/2019 Active hydroCHLOROthiazide hydroCHLOROthiazide 08-03-2019 - S [facility] (30254) (HYDRODIURIL) 25 MG 08-03-2020 tablet Indications: Essential hypertension Take 1 tablet by mouth daily 90 tablet 1 02/01/2020 08/03/2020 Active levothyroxine levothyroxine (SYNTHROID) 08-03-2019 - S [facility] (21057) 25 MCG tablet 08-03-2020 Indications: Hypothyroidism, unspecified type Take 1 tablet by mouth daily 90 tablet 1 02/01/2020 08/03/2020 Active Lisinopril lisinopril 09-28-2019 - [facility] (23400) (PRINIVIL;ZESTRIL) 5 MG 12-27-2019 tablet TAKE 1 TABLET DAILY 90 tablet 1 12/19/2019 Active metFORMIN metFORMIN (GLUCOPHAGE XR) 08-03-2019 - Stone [facility] (50023) 500 MG extended release 11-15-2020 tablet Take 2 tablets by mouth 2 times daily (before meals) 360 tablet 1 05/15/2020 11/15/2020 Active Metoprolol metoprolol succinate 03-26-2020 [facility] ( 33228) (TOPROL XL) 50 MG extended release tablet Take 1 tablet by mouth daily 90 tablet 1 03/26/2020 Active metoprolol succinate (TOPROL XL) 50 MG 10-03-2019 Sofie Burnhammer [facility] (68460) extended release tablet Take 1 tablet by mouth daily 90 tablet 1 10/03/2019 Active Omeprazole omeprazole (PRILOSEC) 40 MG delayed release 02-01-2020 [facility] (58682) capsule Indications: Gastroesophageal reflux disease, esophagitis presence not specified Take 1 capsule by mouth daily 90 capsule 1 02/01/2020 Active omeprazole (PRILOSEC) 40 MG delayed release capsule 08-03-2019 [facility] (35009) Indications: Gastroesophageal reflux disease, esophagitis presence not specified Take 1 capsule by mouth daily 90 capsule 1 08/03/2019 Active REYVOW 100 MG TABS REYVOW 100 MG TABS 05-17-2020 Historical Provi [facility]- Take 2 tablets by [place] ([address]) mouth as needed 0 05/17/2020 Active SITagliptin SITagliptin 02-01-2020 [facility] (41593) (JANUVIA) 100 MG tablet Indications: Diabetes mellitus type 2 in obese (HCC) TAKE 1 TABLET BY MOUTH EVERY DAY 90 tablet 1 02/01/2020 Active SITagliptin (JANUVIA) 100 MG tablet Indications: Diabetes 2019 [facility] (06632) mellitus type 2 in obese (HCC) TAKE 1 TABLET BY MOUTH EVERY DAY 90 tablet 0 11/11/2019 Active Sodium Chloride 0.9 % sodium chloride 06-26-2020 Amrik Amaya [place] infusion ([address]301) 0.9 % sodium chloride bolus 03-31-2020 - 04-01-2020 [place] ([address]) SUMAtriptan SUMAtriptan (IMITREX) 100 Historical Prov ider [facility] (71150) MG tablet Take 100 mg by mouth once as needed for Migraine Max 2 per day 0 Active ZOLMitriptan ZOMIG 5 MG nasal solution 10-07-2019 Historical Prov ider [facility] (36541) Completed/Discontinuned Medications Medication Name Sig Date Prescriber Location albuterol sulfate HFA albuterol sulfate HFA 08-03-2019 - Agueda Boles [facility] (71008) 108 (90 Base) MCG/ACT 108 (90 Base) MCG/ACT 06-26-2020 inhaler inhaler Indications: Bronchitis Inhale 2 puffs into the lungs every 6 hours as needed for Wheezing or Shortness of Breath 1 Inhaler 0 08/03/2019 06/26/2020 Discontinued (Therapy completed) albuterol sulfate HFA 108 (90 Base) MCG/ACT 08-03-2019 Shahnaz Angeles [facility] (31408) inhaler Indications: Bronchitis Inhale 2 puffs into the lungs every 6 hours as needed for Wheezing or Shortness of Breath 1 Inhaler 0 08/03/2019 Active albuterol sulfate HFA 108 (90 Base) MCG/ACT 08-03-2019 Shahnaz jacques Angeles [facility] (59893) inhaler Indications: Bronchitis Inhale 2 puffs into the lungs every 6 hours as needed for Wheezing or Shortness of Breath 1 Inhaler 0 08/03/2019 Active albuterol sulfate HFA 108 (90 Base) MCG/ACT 08-03-2019 Shahnaz jacques Brunner Lalit [facility] (76375) inhaler Indications: Bronchitis Inhale 2 puffs into the lungs every 6 hours as needed for Wheezing or Shortness of Breath 1 Inhaler 0 08/03/2019 Active Dexamethasone dexamethasone 04-01-2020 - [facility]- (DECADRON) injection 04-01-2020 [place] ([address]) 10 mg Metoclopramide metoclopramide 03-31-2020 - [facility] h- (REGLAN) injection 10 03-31-2020 [place] ([address]) mg nabumetone nabumetone (RELAFEN) 03-22-2020 - Sofie [facility]- 500 MG tablet Take 1 06-26-2020 [facility] [place], [place] ([address]) tablet by mouth 2 times daily 60 tablet 0 03/22/2020 06/26/2020 Discontinued (DISCONTINUED BY ANOTHER CLINICIAN) nabumetone (RELAFEN) 500 MG tablet Take 1 01-09-2020 [facility] [place] ([address]) tablet by mouth 2 times daily 60 tablet 0 01/09/2020 Active Ondansetron ondansetron 12-11-2019 [facility] (37499) (ZOFRAN-ODT) 4 MG 12-11-2019 Provider disintegrating tablet predniSONE predniSONE (DELTASONE) 04-01-2020 - [facility]- 20 MG tablet Take 2 04-29-2020 [place] ( [address]) tablets by mouth daily for 14 days, THEN 1 tablet daily for 14 days. 42 tablet 0 04/01/2020 04/29/2020 Active predniSONE (DELTASONE) 20 04-01-2020 - [facility]-01-[facility] [place] [place] MG tablet Take 3 tablets by (452 37) mouth daily for 14 days, THEN 2 tablets daily for 14 days, THEN 1 tablet daily for 14 days. 84 tablet 0 04/01/2020 04/01/2020 Discontinued (REORDER) Problems Active Problems Category Problem Name Status Date Location Allergic reactions Allergy status to Active 04-20-2018 [facility] sulfonamides status System ( 06618) Biliary tract disease Postcholecystectomy Active 01-07-2018 [facility] Health syndrome System (86463) Diabetes mellitus with Type 2 diabetes mellitus in Active [facility] (86347) complications obese Diabetes mellitus Type 2 diabetes mellitus Active 01-07-2018 [facility] without complication without complications System (77894) Disorders of lipid Hyperlipidemia, unspecified Active 018 [facility] metabolism System (90868) Esophageal disorders Gastro-esophageal reflux Active 01-08-20 [facility] disease without esophagitis System (17450) Essential hypertension Essential (primary) Active 11-28-2015 [facility] [place] hypertension System (10153) Headache; including Refractory migraine with Active [facility] (20585) migraine aura Malaise and fatigue Fatigue Active [facility]- [place], [place] ([address]) Mood disorders Major depressive disorder, Active 04-20-2018 [facility] Health recurrent, unspecified Syste m (08382) Nonspecific chest pain Chest pain Active [facility] (71548) Nutritional Vitamin D deficiency Active 03-04-2017 [facility] ( 45473) deficiencies Osteoarthritis Arthritis Active 11-28-2015 [facility] (93054) Other liver diseases Fatty (change of) liver, Active 01-08-20 [facility] Health not elsewhere classified Sys tem (17867) Other liver diseases Non-alcoholic fatty liver Active 017 [facility] (07077) Other non-traumatic Arthritis of left ankle Active 04-02-2020 - [facility] [place]- joint disorders [place], [place] ([address]) Other non-traumatic Acute ankle pain Active [facility]- joint disorders [place] ([address]) Other nutritional; Body mass index 40+ - Active 04-21-2018 [facility] (68914) endocrine; and severely obese - 12-31-2018 metabolic disorders - Other nutritional; Obesity, unspecified Active 01-07-2018 S [facility] endocrine; and System (90955 ) metabolic disorders Other nutritional; Morbid obesity Active [facility]- endocrine; and [place], [place] ([address] ) metabolic disorders Thyroid disorders Hypothyroidism, unspecified Active 04-20-20 [facility] System (91565) Unclassified skilled nursing (current) use of Active 04-20-2018 S [facility] oral hypoglycemic drugs Syst em (06407) Unclassified Body mass index (BMI) Active 01-07-2018 [facility] Health 38.0-38.9, adult System (000 00) Past or Other Problems Category Problem Name Status Date Location Abdominal pain Flank pain Completed 01-10-2018 [facility] (52873) Bacterial infection Unspecified Escherichia Completed 01-07-2018 [facility] coli [E. coli] as the System (49769) cause of diseases classified elsewhere Fever of unknown origin Fever, unspecified Completed 01-07-2018 [facility] Health - 11-03-2018 System (61899) - Fluid and electrolyte Hypokalemia Completed 01-07-2018 [facility] Health disorders System (29290) Genitourinary symptoms Gross hematuria Completed 01-07-2018 [facility] and ill-defined - 11-03-2018 System (0000 0) conditions - Other gastrointestinal Constipation, Completed 01-07-2018 - [facility] Health disorders unspecified System (75677) Other injuries and Systemic inflammatory Completed 01-07-2018 [facility] Health conditions due to response syndrome Syste m (11156) external causes (SIRS) of non-infectious origin without acute organ dysfunction Other injuries and Systemic inflammatory Completed 01-07-2018 [facility] (62897) conditions due to response syndrome - 01-13-2018 external causes - Other liver diseases Enzyme level - finding Completed 01-07-2018 - [facility] (43732) - 12-31-2018 - Other lower respiratory Hypoxia Completed 01-10-2018 - [facility] (16278) disease - 12-31-2018 - Other lower respiratory Hypoxemia Completed 01-07-2018 - [facility] Health disease System (42479) Other nutritional; Obesity Completed 11-03-2018 - [facility] (44 303) endocrine; and metabolic disorders Other screening for Liver function tests Completed 08-03-2019 - [facility] (39261) suspected conditions abnormal (not mental disorders or infectious disease) Pleurisy; pneumothorax; Pleural effusion Completed 01-10-2018 - [facility] (48635) pulmonary collapse - 12-31-2018 - Residual codes; History of Completed 12-31-2018 - [facility] (03579 ) unclassified cholecystectomy Septicemia (except in Bacteremia caused by Completed 11-03-2018 - [facility] (68705) labor) Gram-negative bacteria Spondylosis; Lumbago with sciatica, Completed 01-07-2018 - [facility] Health intervertebral disc left side - 11-03-2018 System ( 84546) disorders; other back - problems Results Result Name Value Range Unit Interpretation Flag Date Location surgical pathology on 2020-06-26 Surgical [id number] Normal 06-26-2020 [facility] Pathology [facility] DEPARTMENT OF [facility] System PATHOLOGY AND (37380 ) LABORATORY MEDICINE [address] [place] [address] Fax - FINAL SURGICAL PATHOLOGY REPORT NAME: SHIRLEY HYLTON : 1965 54 Y F BILLING NO.: [id number] LOCATION: [place] PROCEDURE 06/26/2020 DATE: SURGEON: DAVID RABAGO MD RECEIVED 06/26/2020 DATE: ATTENDING: DAVID RABAGO MD REPORT DATE: 06/27/2020 COPIES TO: DIAGNOSIS: COLON, CECUM, POLYPECTOMY - TUBULAR ADENOMA JAW/JAW Signature> ELAINE BROWNLEE M.D. CLINICAL INFORMATION: Screening SPECIMEN: COLON POLYP, [...] determined by the clinical labor atories of [facility]. They have not been cleared by the [...] negativity on decalcified specimens. Case reviewed at [place] [address] [place] [address]. DEPARTMENT OF PATHOLOGY AND LABORATORY MEDICINE [place], [place] [address] glucose,bedside on 2020-06-26 Glucose [Mass/Vol] 169 70-100 mg/dL High 06-26-2020 [facility] (26513) Comment: Result Comment: Test perform ed by glucose meter. Results may be 10%-15% lower than serum/plasma values. (C ZAID ID [id number]) Performed By: #### HEMOG, BM P3, MG3, TROPN #### [facility] [address] [place] [address] No panel information on 2020-06-26 Glucose [Mass/Vol] 169 70 - 100 mg/dL High 06-26-2020 [place], [place] ([address]) Comment: Test performed by glucose me ter. Results may be 10%-15% lower than serum/plasma values. ( CLIA ID [id number]) Interpretation and review Abnormal [facility], of laboratory results [place] ([address]) Test Performed by 06-26-2020 [facility], [facility], [place] ([address]) [address] , [place], [place] [address] sed rate on 2020-03 Sed Rate 66 0-20 mm/h High 04-01-2020 [facility] (75861) Comment: Performed By: #### HEMOG, BM P3, MG3, TROPN #### [facility] [address] [place] [address] prothrombin time on 2020-04-01 INR Coag (PPP) [Relative 1.0 0.9-1.1 Normal 04-01 [facility] time] (67686) Comment: Result Comment: Recommended Anticoagulant Therapy: SEE [...] #### HEMOG, BM P3, MG3, TROPN #### [facility] [address] [place] [address] PT Coag (PPP) [Time] 10.9 9.0-12.0 s Normal 0 [facility] (37550) Comment: Result Comment: . Performed By: #### HEMOG, BM P3, MG3, TROPN #### [facility] [address] [place] [address] magnesium on 04-01 Magnesium [Mass/Vol] 1.7 1.6-2.3 mg/dL Normal 0 [facility] (23566) Comment: Performed By: #### HEMOG, BM P3, MG3, TROPN #### [facility] [address] [place] [address] hemogram w/ autodiff on 2020-04-01 Abs Baso Cnt 0.1 0.0-0.2 10*3/uL Normal 04-01-2020 [facility] (50189) Comment: Performed By: #### HEMDF, MG 3, BMP3, ESR, PT #### [facility] [address] [place] [address] Abs Neutrophile Cnt 6.6 1.8-7.0 10*3/uL Normal 04-01-2020 [facility] (93128) Comment: Performed By: #### HEMDF, MG 3, BMP3, ESR, PT #### [facility] [address] [place] [address] Basophils/100 WBC (Bld) 0.6 0.0-2.0 % Normal 2019 [facility] (54215) Comment: Performed By: #### HEMDF, MG 3, BMP3, ESR, PT #### [address] [address] Eosinophils (Bld) [#/Vol] 0.1 0.0-0.5 10*3/uL Normal [facility] (08856) Comment: Performed By: #### HEMDF, MG 3, BMP3, ESR, PT #### [address] [place] [address] Eosinophils/100 WBC (Bld) 1.4 1.0-6.0 % Normal [facility] (53482) Comment: Performed By: #### HEMDF, MG 3, BMP3, ESR, PT #### [facility] [address] [place] [address] Erythrocyte distribution 14.2 11.5-14.5 % Normal 04-01 [facility] width (RBC) [Ratio] (60182) Comment: Performed By: #### HEMDF, MG 3, BMP3, ESR, PT #### [facility] [address] [place] [address] Granulocytes/100 WBC (Bld) 72.0 40.0-80.0 % Normal [facility] (35797) Comment: Performed By: #### HEMDF, MG 3, BMP3, ESR, PT #### [facility] [address] [place] [address] Hematocrit (Bld) [Volume 40.0 35.0-47.0 % Normal 04-01 [facility] fraction] (29065) Comment: Performed By: #### HEMDF, MG 3, BMP3, ESR, PT #### [facility] [address] [place] [address] Hemoglobin (Bld) 13.9 11.7-16.0 g/dL Normal 04-01-2020 [facility] [Mass/Vol] (85371) Comment: Performed By: #### HEMDF, MG 3, BMP3, ESR, PT #### [facility] [address] [place] [address] Lymphocytes (Bld) [#/Vol] 1.8 1.0-4.3 10*3/uL Normal [facility] (02160) Comment: Performed By: #### HEMDF, MG 3, BMP3, ESR, PT #### [facility] [address] [place] [address] Lymphocytes/100 WBC (Bld) 19.5 20.0-40.0 % Low [facility] (86615) Comment: Performed By: #### HEMDF, MG 3, BMP3, ESR, PT #### [facility] [address] [place] [address] MCH (RBC) [Entitic mass] 28.3 26.0-34.0 pg Normal 04-01 [facility] (50261) Comment: Performed By: #### HEMDF, MG 3, BMP3, ESR, PT #### [facility] [address] [place] [address] MCHC (RBC) [Mass/Vol] 34.7 32.0-36.0 % Normal 04-01-20 20 [facility] (96773) Comment: Performed By: #### HEMDF, MG 3, BMP3, ESR, PT #### [facility] [address] [place] [address] MCV (RBC) [Entitic vol] 81.6 79.0-98.0 fL Normal 2019 [facility] (53760) Comment: Performed By: #### HEMDF, MG 3, BMP3, ESR, PT #### [facility] [address] [place] [address] Monocytes (Bld) [#/Vol] 0.6 0.0-0.8 10*3/uL Normal 2019 [facility] (60942) Comment: Performed By: #### HEMDF, MG 3, BMP3, ESR, PT #### [facility] [address] [place] [address] Monocytes/100 WBC (Bld) 6.5 2.0-10.0 % Normal 2019 [facility] (29398) Comment: Performed By: #### HEMDF, MG 3, BMP3, ESR, PT #### [facility] [address] [place] [address] Platelet mean volume (Bld) 8.1 7.4-10.4 fL Normal [facility] [Entitic vol] (42460 ) Comment: Performed By: #### HEMDF, MG 3, BMP3, ESR, PT #### [facility] [address] [place] [address] Platelets (Bld) [#/Vol] 275 140-440 10*3/uL Normal 2019 [facility] (25643) Comment: Performed By: #### HEMDF, MG 3, BMP3, ESR, PT #### [facility] [address] [place] [address] RBC (Bld) [#/Vol] 4.91 3.80-5.20 10*6/uL Normal 04-01-2020 [facility] (25564) Comment: Performed By: #### HEMDF, MG 3, BMP3, ESR, PT #### [facility] [address] [place] [address] WBC (Bld) [#/Vol] 9.2 3.6-10.7 10*3/uL Normal 04-01-2020 [facility] (67394) Comment: Performed By: #### HEMDF, MG 3, BMP3, ESR, PT #### [facility] [address] [place] [address] glucose,bedside on 2020-04-01 Glucose [Mass/Vol] 125 70-100 mg/dL High 04-01-2020 [facility] (50834) Comment: Result Comment: Test perform ed by glucose meter. Results may be 10%-15% lower than serum/plasma values. (C ZAID ID [id number]) Performed By: #### BGLU #### [facility] [address] [place] [address] ct head or brain w/o contrast on 2020-04-01 CT Head or Brain Patient Name: SHIRLEY HYLTON al 04-01-2020 [facility] w/o Contrast Syst em (83100) CT Exam Date/Time 04/01/2020 02:43:[address] Head or Brain w/o Contrast Ordering Physician MD MARY ELLEN, [facility] Accession Number [id number] CPT4 Codes 65279 () Reason For Exam headache Report CT [...] acute intracranial abnormality. Report Dictated on Workstation: [id number] Final Dictating Physician: MD JACOBSEN JEFFREY Signed Date and Time: 04/01/2020 2:56 am Signed by: MD JACOBSEN JEFFREY Transcribed Date and Time: 04/01/2020 2:57 complete urinalysis on 2020-04-01 Appearance (U) Clear Clear Normal 04-01-2020 [facility] (20805) Comment: Result Comment: . Performed By: #### HEMOG, BM P3, MG3, TROPN #### [facility] [address] [place] [address] Bilirubin,Urine Negative Negative Normal 04-01-2020 [facility] (62113) Comment: Result Comment: . Performed By: #### HEMOG, BM P3, MG3, TROPN #### [facility] [address] [place] [address] Color (U) COLORLESS Lt. Yellow Normal 04-01-2020 [facility] (23586) Comment: Result Comment: . Performed By: #### HEMOG, BM P3, MG3, TROPN #### [facility] [address] [place] [address] Glucose Ql (U) Normal Normal (<70) Normal 04-01-2020 [facility] (59135) Comment: Result Comment: . Performed By: #### HEMOG, BM P3, MG3, TROPN #### [facility] [address] [place] [address] Ketone,Urine Negative Negative Normal 04-01-2020 [facility] (40998) Comment: Result Comment: . Performed By: #### HEMOG, BM P3, MG3, TROPN #### [facility] [address] [place] [address] Leukocytes,Urine Negative Negative Normal 04-01-2020 [facility] (48712) Comment: Result Comment: . Performed By: #### HEMOG, BM P3, MG3, TROPN #### [facility] [address] [place] [address] Nitrites,Urine Negative Negative Normal 04-01-2020 [facility] (87803) Comment: Result Comment: . Performed By: #### HEMOG, BM P3, MG3, TROPN #### [facility] [address] [place] [address] Occult Blood,Urine Negative Negative Normal 04-01-2020 [facility] (06859) Comment: Result Comment: . Performed By: #### HEMOG, BM P3, MG3, TROPN #### [facility] [address] [place] [address] pH (U) 6.5 5.0-8.0 Normal 04-01-2020 [facility] (04016) Comment: Result Comment: . Performed By: #### HEMOG, BM P3, MG3, TROPN #### [facility] [address] [place] [address] Protein (U) [Mass/Vol] Negative Negative mg/dL Normal 020 [facility] (97541) Comment: Result Comment: . Performed By: #### HEMOG, BM P3, MG3, TROPN #### [facility] [address] [place] [address] Specific [place],Urine 1.006 1.005 - 1.030 Normal [facility] (82068) Comment: Result Comment: . Performed By: #### HEMOG, BM P3, MG3, TROPN #### [facility] [address] [place] [address] Urobilinogen,Urine Normal Normal (0-1) Normal 04-01-20 20 [facility] (35859) Comment: Result Comment: . Performed By: #### HEMOG, BM P3, MG3, TROPN #### [facility] [address] [place] [address] basic metabolic panel on 2020-04-01 Calcium [Mass/Vol] 10.1 8.4-10.4 mg/dL Normal 04-01-2020 [facility] (42862) Comment: Performed By: #### HEMOG, BM P3, MG3, TROPN #### [facility] [address] [place] [address] Anion gap [Moles/Vol] 13 Normal 04-01-20 [facility] (18761) Comment: Performed By: #### HEMOG, BM P3, MG3, TROPN #### [facility] [address] [place] [address] CO2 [Moles/Vol] 26 22-30 mmol/L Normal 04-01-2020 [facility] (18988) Comment: Performed By: #### HEMOG, BM P3, MG3, TROPN #### [facility] [address] [place] [address] Creatinine [Mass/Vol] 0.70 0.52-1.25 mg/dL Normal 04-01-20 [facility] (79733) Comment: Performed By: #### HEMOG, BM P3, MG3, TROPN #### [facility] [address] [place] [address] GFR/1.73 sq M > 90.0 >60 mL/min/{1.73_m2} Normal 0 [facility] predicted among Syst em (42044) blacks MDRD (S/P/Bld) [Vol rate/Area] Comment: Performed By: #### HEMOG, BM P3, MG3, TROPN #### [facility] [address] [place] [address] GFR/1.73 sq M > 90.0 >60 mL/min/{1.73_m2} Normal 0 [facility] predicted among Syst em (12107) non-blacks MDRD (S/P/Bld) [Vol rate/Area] Comment: Result [...] #### HEMOG, BM P3, MG3, TROPN #### [facility] [address] [place] [address] Glucose [Mass/Vol] 102 70-100 mg/dL High 04-01-2020 [facility] (92679) Comment: Performed By: #### HEMOG, BM P3, MG3, TROPN #### [facility] [address] [place] [address] Urea nitrogen [Mass/Vol] 15 7-20 mg/dL Normal 04-01 [facility] (22957) Comment: Performed By: #### HEMOG, BM P3, MG3, TROPN #### [facility] [address] [place] [address] Chloride [Moles/Vol] 100 98-107 mmol/L Normal 0 [facility] (24960) Comment: Performed By: #### HEMOG, BM P3, MG3, TROPN #### [facility] [address] [place] [address] Potassium [Moles/Vol] 4.0 3.5-5.1 mmol/L Normal 04-01-20 20 [facility] (79658) Comment: Performed By: #### HEMOG, BM P3, MG3, TROPN #### [facility] [address] [place] [address] Sodium [Moles/Vol] 139 135-145 mmol/L Normal 04-01-2020 [facility] (12559) Comment: Performed By: #### HEMOG, BM P3, MG3, TROPN #### [facility] [address] [place] [address] No panel information on 2020-04-01 [facility] Incoming Radiology Results From [facility] - 2019 2:57 AM EDT 04-01-2020 [place] ([address]) Patient Name: SHIRLEY HYLTON ---CT--- Exam Date/Time 04/01/2020 02:43:[address] Head or Brain w/o Contrast Ordering Physician MD HYDE NISHIT Accession Number [id number] CPT4 Codes 32128 () Reason For Exam headache Report CT [...] acute intracranial abnormality. Report Dictated on Workstation: [email or web address] --- Final --- Dictating Physician: MD JACOBSEN JEFFREY Signed Date and Time: 04/01/2020 2:56 am Signed by: MD JACOBSEN JEFFREY Transcribed Date and Time: 04/01/2020 2:57 Patient Name: SHIRLEY [place]YL[place] [facility] [place] ([address]) [id number] ---CT--- Exam Date/Time 04/01/2020 02:43:[address] Head or Brain w/o Contrast Ordering Physician MD HYDE NISHIT Accession Number [id number] CPT4 Codes 57318 () Reason For Exam headache Report CT [...] [Relative 1.0 OTH - OTH {INR} 03-31 [place] time] ([address]694) Comment: Recommended Anticoagulant Th erapy: SEE BELOW [...] [Time] 10.9 9 - 12 s 0 [place] ([address]) Comment: . Test Performed by [facility] 2019 [place] [facility], [facility] ( [address]) [address] , [place], [place] [address] Appearance (U) Clear Clear NA 03-31-2020 [place] ([address]) Comment: . Bilirubin Urine Negative Negative mg/dL 0 [place] ([address]) Comment: . Color (U) COLORLESS Lt. Yellow NA 03-31-2020 [place] ([address]) Comment: . Glucose, Ur Normal Normal (<70) mg/dL 0 [place] ([address]) Comment: . Ketones Ql (U) Negative Negative mg/dL 03-31-2020 [place] ([address]) Comment: . LEUKOCYTES, UA Negative Negative Artur/uL 0 [place] ([address]) Comment: . Nitrite, Urine Negative Negative NA 03-31-2020 [place] ([address]) Comment: . Occult Blood,Urine Negative Negative mg/dL 2019 [place] ([address]) Comment: . pH (U) 6.5 OTH - OTH [pH] 03-31-2020 [place] ([address]) Comment: . Protein (U) [Mass/Vol] Negative Negative mg/dL mg/[place] ([address]) Comment: . Specific [place], Urine 1.006 OTH - OTH 2019 [place] ([address]) Comment: . Urobilinogen, Urine Normal Normal (0-1) mg/dL 0 03-31-2020 [place] ([address]) Comment: . Test Performed by 03-31-2020 [place] ([address]) System, [address] , [place] [address] Interpretation and Abnormal 03-31-2020 [facility]- review [place] ([address]) results Sed Rate 66 0 - 20 mm/h High 03-31-2020 [place] ([address]) Test Performed by 03-31-2020 [place] ([address]) System, [address] , [place] [address] Anion gap [Moles/Vol] 13 mmol/L 03-31-20 20 [place] (84 0[address]) Calcium [Mass/Vol] 10.1 8.4 - 10.4 mg/dL 03-31-2020 [place] (79 [address]) Chloride [Moles/Vol] 100 98 - 107 mmol/L 0 [place] (80 142) CO2 [Moles/Vol] 26 22 - 30 mmol/L 03-31-2020 [place] ([address]) Creatinine [Mass/Vol] 0.7 0.52 - mg/dL 03-31-20 20 [facility] 1.25 [place] ([address] 6[address]) EGFR IF NonAfrican >90.0 >60 mL/min 03-31-2020 [place] ([address]) Comment: KDIGO guidelines provide the following GFR [...] sq M >90.0 >60 mL/min mL/min/{1.73_m2} 03-31-20 [facility] predicted among [facility], [place] (3789 7) (S/P/Bld) [Vol rate/Area] Glucose [Mass/Vol] 102 70 - 100 mg/dL High 03-31-2020 [place] ([address]) Interpretation and Abnormal 03-31-2020 [facility] review of [facility] , laboratory results K [place] ([address]) Magnesium 1.7 1.6 - 2.3 mg/dL 03-31-2020 [facility] [Mass/Vol] [place] ([address]) Potassium 4.0 3.5 - 5.1 mmol/L 03-31-2020 [facility] [Moles/Vol] [place] ([address]) Sodium [Moles/Vol] 139 135 - 145 mmol/L 03-31-2020 [place] ([address]) Urea nitrogen 15 7 - 20 mg/dL 03-31-2020 [facility] [Mass/Vol] [place] ([address]) Test 03-31-2020 [facility] Performed by [facility] (441 79) System, [address] , [place] [address] Absolute Baso # 0.1 0 - 0.2 10*3/uL 03-31-2020 [place] ([address]) Absolute Neut # 6.6 1.8 - 7 10*3/uL 03-31-2020 [place] ([address]) Basophils/100 WBC 0.6 0 - 2 % 03-31-2020 [place] (Bld) [place] ([address]) Eosinophils (Bld) 0.1 0 - 0.5 10*3/uL 03-31-2020 [facility] [#/Vol] [place] ([address]) Eosinophils/100 1.4 1 - 6 % 03-31-2020 [facility] [place] WBC (Bld) [place] ([address]) Erythrocyte 14.2 11.5 - % 03-31-2020 [facility] distribution [facility].5 [facility] ([facility] [Ratio] [facility] (64 551) Granulocytes/100 72.0 40 - 80 % 03-31-2020 [facility] [place] WBC (Bld) [place] ([address]) Hematocrit (Bld) 40.0 35 - 47 % 03-31-2020 [facility] [Volume fraction] [place] ([address]) Hemoglobin (Bld) 13.9 11.7 - 16 g/dL 03-31-2020 [facility] [Mass/Vol] [place] ([address]) Interpretation and Abnormal 03-31-2020 [facility] review of [facility] , laboratory results K Y ([address]) Lymphocytes (Bld) 1.8 1 - 4.3 10*3/uL 03-31-2020 [facility] [#/Vol] [place] ([address]) Lymphocytes/100 19.5 20 - 40 % Low 03-31-2020 [facility] [place] WBC (Bld) [place] ([address]) MCH (RBC) [Entitic 28.3 26 - 34 pg 03-31-2020 [facility] mass] [place] ([address]) MCHC (RBC) 34.7 32 - 36 % 03-31-2020 [facility] [Mass/Vol] [facility] ([address]) MCV (RBC) [Entitic 81.6 79 - 98 fL 03-31-2020 [facility] vol] [place] ([address]) Monocytes (Bld) 0.6 0 - 0.8 10*3/uL 03-31-2020 Yvette cy [#/Vol] [place] ([address]) Monocytes/100 WBC 6.5 2 - 10 % 03-31-2020 [place] (Bld) [place] ([address]) Platelet mean 8.1 7.4 - 10.4 fL 03-31-2020 [facility] y volume (Bld) [facility], [Entitic vol] [facility] (45 237) Platelets (Bld) 275 140 - 440 10*3/uL 03-31-2020 Yvette cy [#/Vol] [place] ([address]) RBC (Bld) [#/Vol] 4.91 3.8 - 5.2 10*6/uL 03-31-2020 [place] ([address]) WBC (Bld) [#/Vol] 9.2 3.6 - 10.7 10*3/uL 03-31-2020 [facility] [place] ([address]) Test 03-31-2020 [facility] [place] ([address]) System, [address] , [place], [place] [address] Glucose [Mass/Vol] 125 70 - 100 mg/dL High 03-31-2020 [place] ([address]) Comment: Test performed by glucose nd ter. Results may be 10%-15% lower than serum/plasma values. ( CLIA ID [id number]) Interpretation and review Abnormal [facility], of laboratory results [place] ([address]) Test Performed by 03-31-2020 [facility], [facility] ([address]) [address] , [place], [place] [address] cr ankle 2 views left on 2020-01-09 CR Ankle 2 Views Patient Name: SHIRLEY HYLTON Norm al 01-09-2020 [facility] Left (79340) Diagnostic Radiology Exam Date/Time 01/09/2020 10:02:06 EDT Exam CR Ankle 2 Views Left Ordering Physician MD NETTIE, SOFIE DAIGLE Accession Number [id number] CPT4 Codes 01489 () Reason For Exam left ankle pain [...] 01/09/2020 10:34 No panel information on 2020-01-09 [facility] Incoming Radiology Results From [facility] - 2019 10:35 AM EDT 01-09-2020 [facility], [place] ([address]) Patient Name: SHIRLEY HYLTON ---Diagnostic Radiology--- Exam Date/Time 01/09/2020 10:02:06 EDT Exam CR Ankle 2 Views Left Ordering Physician MD SHEFFIELD DARRELL LEROY Accession Number [id number] CPT4 Codes 00534 () Reason For Exam left ankle pain [...] or disloca tion. Report Dictated on Workstation: [email or web address] --- Final --- Dictating Physician: MD KISER NEIL Signed Date and Time: 01/09/2020 10:33 am Signed by: MD KISER NEIL Transcribed Date and Time: 01/09/2020 10:34 Patient Name: [place] [address]) [id number] ---Diagnostic Radiology--- Exam Date/Time 01/09/2020 10:02:06 EDT Exam CR Ankle 2 Views Left Ordering Physician MD NETTIE, SOFIE DAIGLE Accession Number [id number] CPT4 Codes 49278 () Reason For Exam left ankle pain [...] I.cardiac < 0.012 0.000-0.034 ng/mL Normal 0 [facility] [Mass/Vol] (93685) Comment: Result Comment: . Performed By: #### TROPN ### # [facility] [address] [place] [address] Troponin I.cardiac < 0.012 0.000-0.034 ng/mL Normal 0 [facility] [Mass/Vol] (56522) Comment: Result Comment: . Performed By: #### HEMOG, BM P3, MG3, TROPN #### [facility] [address] [place] [address] magnesium on 2019-0 -16 Magnesium [Mass/Vol] 1.7 1.6-2.3 mg/dL Normal 0 [facility] (70171) Comment: Performed By: #### HEMOG, BM P3, MG3, TROPN #### [facility] [address] [place] [address] hemogram on 2019-11 Erythrocyte distribution 14.1 11.5-14.5 % Normal 12-11 [facility] width (RBC) [Ratio] (04901) Comment: Performed By: #### HEMOG, BM P3, MG3, TROPN #### [facility] [address] [place] [address] Hematocrit (Bld) [Volume 39.7 35.0-47.0 % Normal 12-11 [facility] fraction] (19719) Comment: Performed By: #### HEMOG, BM P3, MG3, TROPN #### [facility] [address] [place] [address] Hemoglobin (Bld) 13.5 11.7-16.0 g/dL Normal 12-11-2019 [facility] [Mass/Vol] (34940) Comment: Performed By: #### HEMOG, BM P3, MG3, TROPN #### [facility] [address] [place] [address] MCH (RBC) [Entitic mass] 28.7 26.0-34.0 pg Normal 12-11 [facility] (30986) Comment: Performed By: #### HEMOG, BM P3, MG3, TROPN #### [facility] [address] [place] [address] MCHC (RBC) [Mass/Vol] 34.1 32.0-36.0 % Normal 12-11-19 20 [facility] (22844) Comment: Performed By: #### HEMOG, BM P3, MG3, TROPN #### [facility] [address] [place] [address] MCV (RBC) [Entitic vol] 84.1 79.0-98.0 fL Normal 2019 [facility] (44457) Comment: Performed By: #### HEMOG, BM P3, MG3, TROPN #### [facility] [address] [place] [address] Platelet mean volume (Bld) 8.2 7.4-10.4 fL Normal [facility] [Entitic vol] (24639 ) Comment: Performed By: #### HEMOG, BM P3, MG3, TROPN #### [facility] [address] [place] [address] Platelets (Bld) [#/Vol] 283 140-440 10*3/uL Normal 2019 [facility] (85814) Comment: Performed By: #### HEMOG, BM P3, MG3, TROPN #### [facility] [address] [place] [address] RBC (Bld) [#/Vol] 4.72 3.80-5.20 10*6/uL Normal 12-11-2019 [facility] (46720) Comment: Performed By: #### HEMOG, BM P3, MG3, TROPN #### [facility] [address] [place] [address] WBC (Bld) [#/Vol] 10.5 3.6-10.7 10*3/uL Normal 12-11-2019 [facility] (78552) Comment: Performed By: #### HEMOG, BM P3, MG3, TROPN #### [facility] [address] [address] cr chest pa/lat on 2019-12-11 CR Chest PA/LAT Patient Name: SHIRLEY HYLTON 12-11-2019 [facility] (61911) Diagnostic Radiology Exam Date/Time 12/11/2019 04:17:40 EST Exam CR Chest PA/LAT Ordering Physician SHOAIB PEACOCK Accession Number [id number] CPT4 Codes 27478 () Reason For Exam chest pain Report EXAM: CR Chest PA/LAT INDICATION: Chest pain VIEWS: Frontal and lateral COMPARISON: 08/03/2019 TIME: 4:01 on 12/11/2019 FINDINGS AND IMPRESSION: No radiographic acute cardiopulmonary process. The trachea is midline. The cardiomediastinal silhouette is within normal limits. No confluent consolidation. Report Dictated on Workstation: [id number] Final Dictating Physician: MD YUN JENNIFER R Signed Date and Time: 12/11/2019 4:50 am Signed by: MD YUN JENNIFER R Transcribed Date and Time: 12/11/2019 4:51 basic metabolic panel on 2019-12-11 Anion gap [Moles/Vol] 13 Normal 12-11-19 20 [facility] (57371) Comment: Performed By: #### HEMOG, BM P3, MG3, TROPN #### [facility] [address] [address] Calcium [Mass/Vol] 10.0 8.4-10.4 mg/dL Normal 12-11-2019 [facility] (49644) Comment: Performed By: #### HEMOG, BM P3, MG3, TROPN #### [facility] [address] [place] [address] CO2 [Moles/Vol] 25 22-30 mmol/L Normal 12-11-2019 [facility] (75227) Comment: Performed By: #### HEMOG, BM P3, MG3, TROPN #### [facility] [address] [place] [address] Glucose [Mass/Vol] 168 70-100 mg/dL High 12-11-2019 [facility] (47262) Comment: Performed By: #### HEMOG, BM P3, MG3, TROPN #### [facility] [address] [place] [address] Urea nitrogen [Mass/Vol] 19 7-20 mg/dL Normal 12-11 [facility] (85568) Comment: Performed By: #### HEMOG, BM P3, MG3, TROPN #### [facility] [address] [place] [address] Creatinine [Mass/Vol] 0.66 0.52-1.25 mg/dL Normal 12-11-19 [facility] (13904) Comment: Performed By: #### HEMOG, BM P3, MG3, TROPN #### [facility] [address] [place] [address] GFR/1.73 sq M > 60.0 >60 mL/min/{1.73_m2} Normal 0 [facility] predicted among Syst em ([address]) blacks MDRD (S/P/Bld) [Vol rate/Area] Comment: Performed By: #### HEMOG, BM P3, MG3, TROPN #### [facility] [address] [place] [address] GFR/1.73 sq M > 60.0 >60 mL/min/{1.73_m2} Normal 0 [facility] predicted among Syst em (33060) non-blacks MDRD (S/P/Bld) [Vol rate/Area] Comment: Result Comment: Source- MDRD equation with creatinine calibration to IDMS(NKDEP) eGFR not recommended for crissy g dose adjustment Performed By: #### HEMOG, BM P3, MG3, TROPN #### [facility] [address] [place] [address] Potassium [Moles/Vol] 4.2 3.5-5.1 mmol/L Normal 12-11-19 [facility] (92151) Comment: Performed By: #### HEMOG, BM P3, MG3, TROPN #### [facility] [address] [place] [address] Chloride [Moles/Vol] 98 mmol/L Normal 0 [facility] (21686) Comment: Performed By: #### HEMOG, BM P3, MG3, TROPN #### [facility] [address] [place] [address] Sodium [Moles/Vol] 136 mmol/L Normal 12-11-2019 [facility] (79796) Comment: Performed By: #### HEMOG, BM P3, MG3, TROPN #### [facility] [address] [place] [address] No panel information on 2019-12-11 Troponin I.cardiac [Mass/Vol] <0.012 0 - 0.034 ng/mL 12-11-2019 [facility] (21776) Comment: . Test Performed by [facility] 2019 [facility] (94524) [facility] System, [address] [place], [place] [address] Patient Name: CONCETTA, 12-11-19 20 [facility] (09064) SHIRLEY Plunkett ---Diagnostic Radiology--- Exam Date/Time 12/11/2019 04:17:40 EST Exam CR Chest PA/LAT Ordering Physician SHOAIB PEACOCK Accession Number [id number] CPT4 Codes 42180 () Reason For Exam chest pain Report [...] Transcribed Date and Time: 12/11/2019 4:51 [facility] Results From [facility] - 2019 4:51 AM EST 12-11-2019 [facility] (76392) Patient Name: SHIRLEY HYLTON ---Diagnostic Radiology--- Exam Date/Time 12/11/2019 04:17:40 EST Exam CR Chest PA/LAT Ordering Physician SHOAIB PEACOCK Accession Number [id number] CPT4 Codes 64263 () Reason For Exam chest pain Report EXAM: CR Chest PA/LAT INDICATION: Chest pain VIEWS: Frontal and lateral COMPARISON: 08/03/2019 TIME: 4:01 on 12/11/2019 FINDINGS AND IMPRESSION: No radiographic acute cardiopulmonary process. The trachea is midline. The cardiomediastinal silhouette is within normal limits. No confluent consolidation. Report Dictated on Workstation: [id number] retargeting --- Final --- Dictating Physician: MD YUN JENNIFER R Signed Date and Time: 12/11/2019 4:50 am Signed by: MD YUN JENNIFER R Transcribed Date and Time: 12/11/2019 4:51 Troponin <0.012 0 - 0.034 ng/mL 12-11-2019 [facility] (62 120) I.cardiac [Mass/Vol] Comment: . Test Performed by 12-11-2019 S [facility] (16412) [facility], [address] [place] [address] Anion gap 13 mmol/L 12-11-2019 [facility] (19 581) [Moles/Vol] Calcium [Mass/Vol] 10.0 8.4 - 10.4 mg/dL 12-11-2019 [facility] (52147) CO2 [Moles/Vol] 25 22 - 30 mmol/L 12-11-2019 [facility] (30478) Creatinine 0.66 0.52 - 1.25 mg/dL 12-11-2019 [facility] (12254) [Mass/Vol] EGFR IF NonAfrican >60.0 >60 mL/min 12-11-2019 [facility] (00290) [place] Comment: Source- MDRD equation with c reatinine calibration to IDMS(NKDEP) eGFR not recommended for crissy g dose adjustment GFR/1.73 sq M >60.0 >60 mL/min mL/min/{1.73_m2} 12-11-[address] [facility] predicted among (443 03) blacks MDRD (S/P/Bld) [Vol rate/Area] Glucose [Mass/Vol] 168 70 - 100 mg/dL High 12-11-2019 [facility] (79094) Interpretation and Abnormal 12-11-2019 [facility] review of (95676) laboratory results Magnesium 1.7 1.6 - 2.3 mg/dL 12-11-2019 [facility] [Mass/Vol] (01706) Potassium 4.2 3.5 - 5.1 mmol/L 12-11-2019 [facility] [Moles/Vol] (83067) Urea nitrogen 19 7 - 20 mg/dL 12-11-2019 [facility] [Mass/Vol] (16184) Test 12-11-2019 [facility] Performed by (67458) [facility], [address] , [place], [place] [address] Erythrocyte 14.1 11.5 - % 12-11-2019 [facility] distribution width 14.5 ( 59387) (RBC) [Ratio] Hematocrit (Bld) 39.7 35 - 47 % 12-11-2019 [facility] [Volume fraction] (4 4303) Hemoglobin (Bld) 13.5 11.7 - 16 g/dL 12-11-2019 [facility] [Mass/Vol] (88413) MCH (RBC) [Entitic 28.7 26 - 34 pg 12-11-2019 [facility] mass] (42967) MCHC (RBC) 34.1 32 - 36 % 12-11-2019 [facility] [Mass/Vol] (21795) MCV (RBC) [Entitic 84.1 79 - 98 fL 12-11-2019 [facility] vol] (85115) Platelet mean 8.2 7.4 - 10.4 fL 12-11-2019 [facility] volume (Bld) (25646) [Entitic vol] Platelets (Bld) 283 140 - 440 10*3/uL 12-11-2019 [facility] [#/Vol] (81848) RBC (Bld) [#/Vol] 4.72 3.8 - 5.2 10*6/uL 12-11-2019 [facility] (62117) WBC (Bld) [#/Vol] 10.5 3.6 - 10.7 10*3/uL 12-11-2019 [facility] (55070) Test 12-11-2019 [facility] Performed by (33271) [facility], [address] , [place], [place] [address] mg breast tomosynthesis scr bl on 2019-08-17 MG Breast Patient Name: SHIRLEY HYLTON Normal 1 [facility] Tomosynthesis Scr Bl System (07221) Mammography Exam Date/Time 08/17/2019 08:00:00 EDT Exam MG Breast Tomosynthesis BI Scr Ordering Physician FELECIA ANGELES HOLLY S Accession Number [id number] CPT4 Codes 02921 (MG Breast Tomosynthesis Scr Bl), 79087 (MG MAMMO 2D S CREENING) Reason For [...] bilateral MG mammogram digital screening performed at [facility]. June 05, 2010, bilateral scre ening mammogram performed at [facility]. TISSUE DENSITY: There are scattered fibroglandular densities . . FINDINGS: No suspicious masses, architectural distortions or suspiciou sly clustered microcalcifications are identified. There is no evidence of skin thickening or nippl e retraction. There are no significant changes when compared with prior st udies. Markings on images: BB's = Nipples; skin lesions Open [place] = Palpable Line = Scar 2D digital [...] KNEE 1 OR 2 ORIGINAL Normal 03-01-2019 [facility] VIEWS RIGHT XR KNEE 1 OR 2 VIEWS RIGHT [facility] ([place]) ([address]) CLINICAL STATEMENT: Status Post Arthroplasty COMPARISON: CT, [...] Erythrocyte distribution 13.5 11.5-14.5 % Normal 02-[address] [facility] width Ratio (RBC) [place] ([place]) ([address]) Comment: Performed By: #### BMP, GFR, A1C #### [address] [address] #### ADIFF, CBC, ANEU #### [address] [address] Hematocrit Volume 40.0 37.0-47.0 % Normal 02-17-2019 [facility] ([place]ld[facility] ([place]) ([id number]) Comment: Performed By: #### BMP, GFR, A1C #### [address] [address] #### ADIFF, CBC, ANEU #### [address] [address] Hemoglobin mass conc 13.5 12.0-16.0 G/dL Normal [address] [facility] (d) [facility] ([place]) ([address]) Comment: Performed By: #### BMP, GFR, A1C #### [place] [address] #### ADIFF, CBC, ANEU #### [address] [address] [facility] Entitic mass (RBC) 28.6 27.0-31.2 pg Normal 019 [facility] ([place]) (0000 0) Comment: Performed By: #### BMP, GFR, A1C #### [place] [address] #### ADIFF, CBC, ANEU #### [address] [address] MCHC mass conc (RBC) 33.8 33.0-37.0 G/dL Normal 9 [facility] ([place]) (0000 0) Comment: Performed By: #### BMP, GFR, A1C #### [place] [address] #### ADIFF, CBC, ANEU #### [address] [address] MCV Entitic volume 84.7 80.0-94.0 fL Normal 02-17-2019 [facility] ([place]) ([place]) (0000 0) Comment: Performed By: #### BMP, GFR, A1C #### [place] [address] #### ADIFF, CBC, ANEU #### [address] [address] Platelet mean volume 8.5 7.4-10.4 fL Normal 9 [facility] Entitic volume (Bld) ([place]) ([address]872) Comment: Performed By: #### BMP, GFR, A1C #### [place] [address] #### ADIFF, CBC, ANEU #### [address] [address] Platelets #/vol (Bld) 264 130-400 10 3/[facility] Normal 02-18-20 19 [facility] ([place]) ([address]377) Comment: Performed By: #### BMP, GFR, A1C #### [place] [address] #### ADIFF, CBC, ANEU #### [address] [address] RBC #/vol (Bld) 4.72 4.20-5.40 10 6/[facility] Normal 02-17-2019 [facility] ([place]) (0000 0) Comment: Performed By: #### BMP, GFR, A1C #### [place] [address] #### ADIFF, CBC, ANEU #### [address] [address] WBC #/vol (Bld) 8.50 4.60-10.80 10 3/[facility] Normal 02-17-2019 [facility] ([place]) (0000 0) Comment: Performed By: #### BMP, GFR, A1C #### [place] [address] #### ADIFF, CBC, ANEU #### [address] [address] bmp on 2019-02-17 Calcium mass conc 9.7 8.4-10.2 mg/dL Normal 02-17-2019 [facility] ([place]) (17237) Comment: Performed By: #### BMP, GFR, A1C #### [place] [address] #### ADIFF, CBC, ANEU #### [address] [address] Chloride molar conc 101 98-107 mmol/L Normal 02-17-2019 [facility] ([place]) (0000 0) Comment: Performed By: #### BMP, GFR, A1C #### [place] [address] #### ADIFF, CBC, ANEU #### [address] [address] CO2 molar conc 28 22-29 mmol/L Normal 02-17-2019 [facility] ([place]) (10739) Comment: Performed By: #### BMP, GFR, A1C #### [place] [address] #### ADIFF, CBC, ANEU #### [address] [address] Creatinine mass conc 0.88 0.55-1.02 mg/dL Normal 9 [facility] ([place]) (0000 0) Comment: Performed By: #### BMP, GFR, A1C #### [place] [address] #### ADIFF, CBC, ANEU #### [address] [address] Electrolyte Balance 9.0 mEq/L Normal 02-17-2019 [facility] ([place]) (45602) Comment: Performed By: #### BMP, GFR, A1C #### [place] [address] #### ADIFF, CBC, ANEU #### [address] [address] Glucose mass conc 129 70-105 mg/dL High 02-17-2019 [facility] ([place]) (35336) Comment: Performed By: #### BMP, GFR, A1C #### [place] [address] #### ADIFF, CBC, ANEU #### [address] [address] Potassium molar conc 4.5 3.5-5.1 mmol/L Normal 9 [facility] ([place]) (0000 0) Comment: Performed By: #### BMP, GFR, A1C #### [place] [address] #### ADIFF, CBC, ANEU #### [address] [address] Sodium molar conc 138 136-145 mmol/L Normal 02-17-2019 [facility] ([place]) ([address]) Comment: Performed By: #### BMP, GFR, A1C #### [address] [address] #### ADIFF, CBC, ANEU #### [address] [address] Urea nitrogen mass conc 21 7-18 mg/dL High 2018 [facility] ([place]) (81974) Comment: Performed By: #### BMP, GFR, A1C #### [place] [address] #### ADIFF, CBC, ANEU #### [address] [address] Urea nitrogen/Creatinine mass 24 7-27 ratio Normal 02-17-2019 [facility] ([place]) (99547) Comment: Performed By: #### BMP, GFR, A1C #### [place] [address] #### ADIFF, CBC, ANEU #### [address] [address] a1c on 2019-02-17 Hemoglobin A1c/Hemoglobin.total 7.3 4.5-6.2 % High 02-17-2019 [facility] ([facility] ([place]) (58856) Comment: Performed By: #### BMP, GFR, A1C #### [place] [address] #### ADIFF, CBC, ANEU #### [address] [address] .neuabs on Neutrophils #/vol 5.70 2.85-6.16 10 3/mcL Normal 02-17-2019 A [facility] (d) [facility] ([place]) (05847) Comment: Performed By: #### BMP, GFR, A1C #### [place] [address] #### ADIFF, CBC, ANEU #### [place] [address] [place], [place] [address] .gfr on 2019-02-17 GFR 82 ml/min/1.73sqm Normal 01-25 [facility] ([place]) (0000 0) Comment: Result Comment: GFR Population mean for Afri can Eritrean, Non- Americans Ages 20-29 = 116 mL/min/1.73 [...] Performed By: #### BMP, GFR, A1C #### [place] [address] #### RICCARDO, CBC, ANEU #### [place] [address] [place], [place] [address] GFR Non- 67 ml/min/1.73sqm Normal 02-17-2019 [facility] ([place]) (84437) Comment: Result Comment: GFR Population mean for Afri can Eritrean, Non- Americans Ages 20-29 = 116 mL/min/1.73 [...] Performed By: #### BMP, GFR, A1C #### [place] [id number] #### ADIFF, CBC, ANEU #### [address] [address] .auto diff on 02-17 Ammonia mass conc 0.50 0.15-1.00 10 3/mcL Normal 02-17-2019 A [facility] () [facility] ([place]) ([address]252) Comment: Performed By: #### BMP, GFR, A1C #### [place] [address] #### ADIFF, CBC, ANEU #### [address] [address] Basophils #/vol (Bld) 0.00 0.00-0.19 10 3/[facility] Normal 02-18-20 19 [facility] ([place]) (34214) Comment: Performed By: #### BMP, GFR, A1C #### [place] [address] #### ADIFF, CBC, ANEU #### [address] [address] Basophils/100 WBC (Bld) 0.5 0.0-2.5 % Normal 2018 [facility] ([place]) (0000 0) Comment: Performed By: #### BMP, GFR, A1C #### [place] [address] #### ADIFF, CBC, ANEU #### [address] [address] Eosinophils #/vol 0.20 0.00-0.40 10 3/[facility] Normal 02-17-2019 A [facility] ([facility]) [facility] ([place]) (79979) Comment: Performed By: #### BMP, GFR, A1C #### [place] [address] #### ADIFF, CBC, ANEU #### [address] [address] Eosinophils/100 WBC (Bld) 2.0 0.0-7.0 % Normal 01-25 [facility] ([place]) (0000 0) Comment: Performed By: #### BMP, GFR, A1C #### [place] [address] #### ADIFF, CBC, ANEU #### [address] [address] Lymphocytes #/vol 2.10 0.77-3.85 10 3/mcL Normal 02-17-2019 [facility] ([place]) (93257) Comment: Performed By: #### BMP, GFR, A1C #### [place] [address] #### ADIFF, CBC, ANEU #### [address] [address] Lymphocytes/100 WBC (Bld) 25.3 10.0-50.0 % Normal 01-25 [facility] ([place]) (06718) Comment: Performed By: #### BMP, GFR, A1C #### [place] [address] #### ADIFF, CBC, ANEU #### [address] [address] Monocytes/100 WBC (Bld) 5.8 1.7-13.0 % Normal 2018 [facility] ([place]) (0000 0) Comment: Performed By: #### BMP, GFR, A1C #### [place] [address] #### ADIFF, CBC, ANEU #### [address] [address] Neutrophils/100 WBC (Bld) 66.4 37.0-80.0 % Normal 01-25 [facility] ([place]) (28462) Comment: Performed By: #### BMP, GFR, A1C #### [place] [address] #### ADIFF, CBC, ANEU #### [address] [address] [address] knee w/o contrast right on 2019-02-04 CT KNEE W/O ORIGINAL Normal 02-04-[address] [facility] CONTRAST RIGHT CT KNEE W/O CONTRAST RIGHT [facility] ([place]) (81035) CLINICAL STATEMENT: Chondromalacia RT KNEE COMPARISON: None [...] BMI (Body Mass Index) 40.43 kg/m2 06-26-2020 [place] ([address]) BMI (Body Mass Index) 43.46 kg/m2 12-11-2019 [facility] (443 03) Body Temperature 98.1 [degF] 06-26-2020 [place], [place] ([address]) Body Temperature 98.4 [degF] 03-31-2020 [place] ([address]) Body Temperature 98.01 [degF] 12-11-2019 [facility] (96320) Body weight 97.07 kg 06-26-2020 [place] ([address]) Body weight 104.33 kg 12-11-2019 [facility] (43462) BP Diastolic 51 mm[Hg] 06-26-2020 [place] ([address]) BP Diastolic 61 mm[Hg] 04-01-2020 [place] ([address]) BP Diastolic 55 mm[Hg] 12-11-2019 [facility] (60766) BP Systolic 102 mm[Hg] 06-26-2020 [place] ([address]) BP Systolic 129 mm[Hg] 04-01-2020 [place] ([address]) BP Systolic 113 mm[Hg] 12-11-2019 [facility] (78350) Height 154.9 cm 06-26-2020 [place] ([address]) Height 154.9 cm 12-11-2019 [facility] (52971) Pulse (Heart Rate) 93 /min 06-26-2020 [place] ([address]) Pulse (Heart Rate) 89 /min 04-01-2020 [place] ([address]) Pulse (Heart Rate) 72 /min 12-11-2019 [facility] (79361) Pulse Oximetry 96 % 06-26-2020 [place], [place] ([address]) Pulse Oximetry 95 % 04-01-2020 [place] ([address]) Pulse Oximetry 97 % 12-11-2019 [facility] (67346) Respiratory Rate 18 /min 06-26-2020 [place] ([address]) Respiratory Rate 16 /min 04-01-2020 [place] ([address]) Respiratory Rate 13 /min 12-11-2019 [facility] (14585) Encounters Date Type Reason Provider Location 04-20-2018 Ambulatory Fever, unspecified [facility] (0000 0) Steven Antunez 03-31-2020 - Emergency Fatigue Rik Mary Ellen Ravi Rogel 04-01-2020 department patient visit Comment: Fatigue, unspecified type (P rimary Dx); Headache disorder 12-11-2019 - Emergency department Chest pain Shoaib Arenas Ravi Romero ED 12-11-2019 patient visit Comment: Chest pain, unspecified type (Primary Dx) 01-07-2018 Evaluation and Bacteremia [facility] of [facility] (000 00) inpatient ELAINE M RENNY 02-24-2019 [...] Christian PCP UNKNOWN 06-26-2020 [facility] visit by physician Endo Comment: Arrived 01-09-2020 - Subsequent hospital Acute ankle Sofiejordan Daigle [facility] josse 01-09-2020 visit by physician julia [facility] Comment: Acute left ankle pain Procedures Procedure Name Date Provider Location Colonoscopy 06-26-2020 3m [place] ([address]) Gluc bld gluc mntr dev 06-26-2020 [place], [place] cleared fda spec home use ([address]24 ) Ct head/brain w/o contrast 04-01-2020 [place], [place] material ([address]) Urnls dip stick/tablet rgnt 03-31-2020 [place], [place] auto w/o microscopy (409[address]) Assay of magnesium 03-31-2020 [place] ([address]) Basic metabolic panel 03-31-2020 [place] calcium total ([address]) Blood count complete 03-31-2020 [place] auto&auto difrntl wbc (48863) Prothrombin time 03-31-2020 [place] ([address]) Sedimentation rate rbc 03-31-2020 [place], [place] automated ([address]) Gluc bld gluc [facility]ntr dev [facility] [place] cleared fda spec home use (04787 ) Radiologic examination ankle 01-09-2020 Sofie Pack r [place], [place] 2 views ([address]) Follow-up visit 12-27-2019 [facility] (0 0000) Assay of troponin 12-11-2019 Shoaib T Dagoberto [facility] (84005) quantitative Radiologic exam chest 2 12-11-2019 Shoaib T Spickard [facility] ( 89995) views Assay of magnesium 12-11-2019 Shoaib T Spickard [facility] (86058 ) Assay of troponin 12-11-2019 Shoaib T Spickard [facility] (40428) quantitative Basic metabolic panel 12-11-2019 Shoaib T Dagoberto [facility] (44 303) calcium total Blood count complete 12-11-2019 Shoaib T Dagoberto [facility] (443 03) automated Ecg routine ecg w/least 12 12-11-2019 Shoaib T Spickard [facility] (74770) lds w/i&r Follow-up visit 06-23-2019 [facility] (0 0000) Follow-up visit 02-24-2019 [facility] (0 0000) Plan of Treatment Plan Description Date Location DTaP/Tdap/Td vaccine (2 - DTaP/Tdap/Td vaccine (2 - 11-03-2028 - [facility] (09076) Td) Td) 11-03-2028 Breast cancer screen Breast cancer screen 08-17-2021 - [facility] (58015) 08-17-2021 Breast cancer screen Breast cancer screen 08-17-2021 - [facility], 08-17-2021 [place] ([address]) Lipid screen Lipid screen 05-15-2021 [place], [place] ([address]) Creatinine monitoring Creatinine monitoring 04-02-2021 [place] ([address]) A1C test (Diabetic or A1C test (Diabetic or 04-02-2021 [facility] [place], Prediabetic) Prediabetic) [place] ([address]) Potassium monitoring Potassium monitoring 04-02-2021 [place] ([address]) Creatinine monitoring Creatinine monitoring 12-11-2020 [place] ([address]) Creatinine monitoring Creatinine monitoring 12-11-2020 - [facility] (41220) 12-11-2020 Potassium monitoring Potassium monitoring 12-11-[facility] (77525) 12-11-2020 Diabetic foot exam Diabetic foot exam 11-02-[facility] (443 03) 11-02-2020 A1C test (Diabetic or A1C test (Diabetic or 11-02-2020 - [facility] (55848) Prediabetic) Prediabetic) 11-02-2020 Diabetic foot exam Diabetic foot exam 11-02-2020 - [facility], 11-02-2020 [place] ([address]) Diabetic microalbuminuria Diabetic microalbuminuria 11-02-[facility] (27871) test test 11-02-2020 A1C test (Diabetic or A1C test (Diabetic or 11-02-2020 [facility] [place], Prediabetic) Prediabetic) [place] ([address]) Flu vaccine (#1) no information 11-02-2020 - [facility] (12292) 11-02-2020 Comment: Postponed from 06/26/2019 (P atient Refused) Postponed from 06/26/2020 (P atient Refused) Diabetic retinal exam Diabetic retinal exam 10-12-2020 - [facility] [place], 10-12-2020 [place] ([address]) Office Visit 08/08/2020 Office 08-08-2020 [facility] Health Visit Family Medicine 08-08-2020 [facility] Santiago APRN - [place] F amily [employer]ASH IN[employer] [address] [place] [address] [phone] Lipid screen Lipid screen 08-03-2020 [facility] , [place] ([address]) Lipid screen Lipid screen 08-03-2020 - [facility] (01129) 08-03-2020 TSH testing TSH testing 08-03-2020 - [facility] , 08-03-2020 [place] ([address]) TSH testing TSH testing 08-03-2020 [facility] (86732) 08-03-2020 Flu vaccine (#1) Flu vaccine (#1) 06-26-2020 [facility], [place] ([address]) Office Visit 05/02/2020 Office 05-02-2020 [facility] Health Visit Family Medicine 05-02-2020 [facility] Santiago APRN - [place] F amily [employer] [address] [place] [address] [phone] Colon cancer screen Colon cancer screen 04-16-2020 [facility] (1 5489) colonoscopy colonoscopy 04-16-2020 Colon cancer screen Colon cancer screen 04-16-2020 - [facility], colonoscopy colonoscopy 04-16-2020 [place] ([address]) Office Visit no information 02-01-2020 - [facility] Health 02-01-[address] [facility] Diabetic retinal exam Diabetic retinal exam 02-15-2019 - [facility] (09146) 02-15-2019 EKG 12 Lead EKG 12 Lead ECG STAT [facility] (4430 3) 12/11/2019 3:36 AM EST Surgical Pathology Surgical Pathology Lab [facility], Routine 06/26/2020 [place] ([address]) 8:23 AM EDT Surgical Pathology Surgical Pathology Lab 06-26-2020 [facility], Routine Once for 1 [place] ([address]) Occurrences starting 06/26/2020 until 06/26/2020 Comment: Once for 1 Occurrences start ing 06/26/2020 until 06/26/2020 Immunizations Vaccine Notes Status Date Location Hepatitis B Adult hepatitis B vaccine, (completed) 01-25-1992 - [facility] (93706) (Engerix-B) adult dosage 01-25-1992 Hepatitis B Adult hepatitis B vaccine, (completed) 08-31-1991 - [facility] (50409) (Engerix-B) adult dosage 08-31-1991 Hepatitis B Adult hepatitis B vaccine, (completed) 07-27-1991 - [facility] (40111) (Engerix-B) adult dosage 07-27-1991 Influenza Vaccine, Influenza Vaccine, (completed) 07-26-2015 - [facility] [place] ([address]679) unspecified formulation unspecified formulation 2014 Influenza, Quadv, 6 mo Influenza, Quadv, 6 mo (completed) 11-03-19 19 - [facility] (19350) and older, IM, PF and older, IM, PF 11-03-2018 (Flulaval, Fluarix) (Flulaval, Fluarix) Pneumococcal pneumococcal (completed) 11-03-2018 - [facility] (62233) Polysaccharide polysaccharide vaccine, 11-03-2018 ([id number]) 23 valent Tdap (Boostrix, Adacel) tetanus toxoid, reduced (completed) 2018 - [facility] (03713) diphtheria toxoid, and 11-03-2018 acellular pertussis vaccine, adsorbed Zoster Recombinant zoster vaccine (completed) 06-03-2019 [facility] ( 16957) (Shingrix) recombinant 06-03-2019 Zoster Recombinant zoster vaccine (completed) 01-31-2019 - [facility] ( 86393) (Shingrix) recombinant 01-31-2019 Payers Payer Name Policy Number Location [facility] ([id number]) [facility] xxxxxxxxx [facility] ([id number]) [facility] [id number] [facility] ([id number]) HEALTHCARE [id number] [facility] (54278) [id number] [facility] (48841) [id number] [facility] (48492) [id number] [facility] (20199) [id number] [facility] (33965) The following information is from the original human readable contentNo Payer Records FoundNo Payer Records FoundNo Payer Records FoundNo Payer Records FoundNo Payer Records Found Social History Type Social History Date Location Description Alcohol intake Current drinker of 12-11-2019 [facility] (09114) alcohol (finding) 06-26-2020 History SDOH Transport 2 08-03-2019 [facility] (44 303) Med 08-03-2019 History SDOH Physical 3 08-03-2019 [facility] (443 03) Activity DPW 08-03-2019 History SDOH Financial 5 08-03-2019 [facility] (44 303) 08-03-2019 History SDOH Food Worry 1 08-03-2019 [facility] (4 4303) 08-03-2019 Tobacco smoking status Never smoker 12-11-2019 - [facility] (44 303) NHIS 06-26-2020 Alcohol Comment socially 12-26-2015 - [facility] (04473) 12-26-2015 Sex Assigned At Not on file [facility] (443 03) Exposure to SARS-CoV-2 Unable to assess [place] (event) ([address]) Tobacco use and Never used 06-26-2020 [place] exposure ([address]) Exposure to SARS-CoV-2 Not sure [place] (event) ([address]) The following information is from the original [...] sugar drinks. Patient given after visit [facility] which includes educational information on Diabetes. 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 Chest Pain (Greenlandic)documented in this encounterAttachmentsThe following attachments cannot be sent through Care Everywhere.Fatigue (Greenlandic)documented in this encounterInsDonna Edwards RN - 06/26/2020Colonoscopy: [...] Written by the doctors and editors at [facility] What are colon polyps? ? Colon [...] our peer review process is complete. Topic 55725 Version 5.0 Release: 25.3 - C25.127 ? 2017 [employer]. All rights reserved. documented in this encounter [...] BE BASED ON THE PRIMARY CLINICAL RECORDS. [facility] provides no warranty or guarantee of the accuracy or completeness of information in this document. UNRECOGNIZED CONTENT PROVIDED BELOW FOR UNRECOGNIZED SECTION INFORMATION SOURCE DATE CREATED AUTHOR AUTHOR'S ORGANIZATIO N 05/03/2018 [facility] DATE CREATED AUTHOR AUTHOR'S ORGANIZATIO N 03/02/2019 [facility] DATE CREATED AUTHOR AUTHOR'S ORGANIZATIO N 03/16/[address] [facility] [place] ([place]) DATE CREATED AUTHOR AUTHOR'S ORGANIZATIO N 12/27/2019 [facility] DATE CREATED AUTHOR AUTHOR'S ORGANIZATIO N 08/10/2020 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
== END 2020-04-06 01:58 | disposition home or self-care (01) ==
PROVIDERS: Emergency Provider Emergency Medicine; PCP Family Medicine
DX: R42 Dizziness and giddiness (principal); R53.1 Weakness; E03.9 Hypothyroidism, unspecified; E11.9 Type 2 diabetes mellitus without complications; F31.9 Bipolar disorder, unspecified; Z79.84 Long term (current) use of oral hypoglycemic drugs; Z79.899 Other long term (current) drug therapy
CPT/HCPCS: 80048; 82962; 84484; 85025; 93005; 99285; A4216

== ENCOUNTER → 2022-07-21 | Outpatient (CLI) | payer OTHER, SELFPAY ==
--- NOTE | 2022-07-21 15:21 | VDLE_ITS ---
Reason For Study: Pain RIGHT GSV is normal. CFV is compressible, spontaneous, phasic, competent and demonstrates normal augmentation. FV is compressible, spontaneous, phasic, competent and demonstrates normal augmentation. POP V is compressible, spontaneous, phasic, competent and demonstrates normal augmentation. T/P Trunk is compressible. PTV is compressible. RT PerV is compressible. Procedure This is a venous duplex using B-mode, color flow and spectral Doppler. Exam performed in department. A preliminary report was called and/or faxed to [facility]. VL/Venous Duplex US, Unilateral Interpretation Summary Deep veins of the right lower extremity are patent and compressible segmentally . There is no evidence of right lower extremity deep vein thrombosis. Valvular competence desiree ears intact within the proximal deep venous system on the right . The right great saphenous vein a ppears patent and compressible segmentally. Ordering Physician: Armin Deng Referring Physician: Carson Jeong Performed By: Faye Domínguez RVT
== END | disposition home or self-care (01) ==
LOC: CVS 15:20
PROVIDERS: PCP Family Medicine; Referring Provider Physician Assistant Surgical; Visit Provider Physician Assistant Surgical
DX: M79.661 Pain in right lower leg (principal); Z96.651 Presence of right artificial knee joint
CPT/HCPCS: 93971

== ENCOUNTER 2024-04-21 07:05 | Observation (INO) | payer OTHER, SELFPAY ==
--- NOTE | 2024-03-29 11:58 | EKG12_ITS ---
Test Reason : PREOP Blood Pressure : / mmHG Vent. Rate : 075 BPM Atrial Rate : 075 BPM P-R Int : 172 ms QRS Dur : 072 ms QT Int : 410 ms P-R-T Axes : 076 025 041 degrees QTc Int : 457 ms Normal sinus rhythm Low voltage QRS Borderline ECG Confirmed by GUS EDUARDO, WALKER ([id number]), commercial production editor BRENNAN CROSS ([id number]) on 03/29/2024 2:16:10 PM Referred By: Reid Echeverria Confirmed By:WALKER WEBER MD
--- NOTE | 2024-03-29 11:58 | RAD_ITS ---
STUDY: X-RAY CHEST REASON FOR EXAM: Female, 58 years old. PREOP TECHNIQUE: Frontal and lateral views of the chest. COMPARISON: 06/16/2017. FINDINGS: The lungs are clear and expanded. There is no demonstrated pleural abnormality. Normal size heart. Normal mediastinum and jay. Normal visualized pulmonary arteries. Normal visualized aortic arch and descending thoracic aorta. Normal visualized thoracic spine. Normal visualized ribs, clavicles, and shoulders. There is no demonstrated abnormality of the visualized soft tissue structures of the upper abdomen. RAD/Chest PA and Lateral IMPRESSION: Normal x-ray examination of the chest. Electronically Signed: Bhaskar De La O MD at 17:49 EDT ,
[2024-03-29 13:32] LABS: Absolute Lymphocyte Count 1.67 X10^3/uL (0.83-4.51); Absolute Neutrophil Count 5.4 X10^3/uL (2.0-7.7); Basophil# 0.04 X10^3/uL; Basophil% 0.5 % (0-1); Eosinophil# 0.12 X10^3/uL; Eosinophils% 1.6 % (0-5); Hematocrit 44.1 % (37-47); Hemoglobin 13.8 g/dL (12.0-15.0); Lymphocyte # 1.67 X10^3/ul (0.83-4.51); Lymphocyte % 21.9 % (19-41); Mean Corp Hgb Conc 31.3 g/dL (32-36); Mean Corpuscular Volume 89.5 fL (81-99); Mean Platelet Vol. 10.5 fl (6.2-12.0); Monocyte# 0.36 X10^3/uL; Monocyte% 4.7 % (0-10); NRBC Flagged by Analyzer 0 % (0-5); Neutrophil # 5.42 X10^3/uL (2.7-7.7); Neutrophil % 70.9 % (47-70); Platelet Count 236 K/mm3 (150-450); RBC Distribution Width CV 12.7 % (11.6-14.6); RBC Distribution Width SD 41.6 fl (35.1-43.9); Red Blood Count 4.93 M/mm3 (4.2-5.4); White Blood Count 7.6 K/mm3 (4.4-11.0)
[2024-03-29 13:54] LABS: Anion Gap 4 (5-15); BUN 18 mg/dL (7-18); BUN/Creat Ratio 20.8 RATIO (10-20); Calcium,Total 9.5 mg/dL (8.5-10.1); Chloride 105 mmol/L (98-107); Creatinine, Serum 0.87 mg/dL (0.55-1.02); EST Glomerular Filtration Rate 72 mL/min (>60); Est Glom Filt Rate - Afr Amer 87 mL/min (>60); Glucose 111 mg/dL (74-106); Potassium 4.6 mmol/L (3.5-5.1); Sodium Level 137 mmol/L (136-145)
[2024-03-29 13:55] LABS: Prothrombin Time (Protime)PT. 13.6 SECONDS (11.7-14.9)
[2024-03-29 13:56] LABS: Partial Thromboplast Time 33.8 Seconds (24.1-36.2)
[2024-03-29 14:10] LABS: Magnesium 2.3 mg/dL (1.6-2.6); Thyroid Stim Hormone (TSH) 1.53 uIU/mL (0.358-3.74)
[2024-04-21] VITALS (18 sets, daily range): BP systolic 112–136; BP diastolic 58–112; PULSE 78–103; RESP 16–18; TEMP 36.2–37.1; O2SAT 94–100; BMI 37.5
[2024-04-21] MEDS: Lactated Ringers 1,000 ML 75 ML IV (06:20)
[2024-04-21] MEDS: Vancomycin HCl 1,250 MG in 0.9% Normal Saline (250mL Bag) 250 ML 167 MG IV (06:21)
[2024-04-21] MEDS: Acetaminophen 500 MG Tablet 1000 MG PO ×2 (06:21→22:17)
[2024-04-21] MEDS: Magnesium 1 GM over 15 mins IV (06:21)
[2024-04-21] MEDS: Lactated Ringers 1,000 ML 999 ML IV (06:22)
--- NOTE | 2024-04-21 06:30 | RAD_ITS ---
STUDY: X-RAY - LUMBAR SPINE REASON FOR EXAM: Female, 58 years old. L4-5 and L5-S1 decompression and posterior fusion. TECHNIQUE: 5 intraoperative digital documentation view(s) of the lumbar spine were obtained. COMPARISON: Lumbar spine x-rays dated January 03, 2024 FINDINGS: 5 intraoperative digital documentation views show posterior fusion changes from L4 to S1 with intervertebral disc prosthesis. RAD/Lumbar Spine 2 or 3 Views IMPRESSION: Intraoperative digital documentation images as described. Electronically Signed: Brandon Malcolm MD at 9:27 EDT ,
[2024-04-21 06:51] LABS: Bedside Glucose 90 mg/dL (74-106)
--- NOTE | 2024-04-21 06:54 | OP.PCM_ITS ---
Report of Operation Date of Procedure: 04/21/24 Description of Surgical Findings:: Preop diagnosis: 1. Lumbar stenosis, L4-5, L5-S1 with spondylosis 2. Lumbar degenerative disc disease L4-5 Postop diagnosis: 1. Lumbar stenosis, L4-5, L5-S1 with spondylosis 2. Lumbar degenerative disc disease L4-5 Procedures performed: 1. L4-5 posterior lumbar interbody fusion 2. Insertion of intervertebral biomechanical device x1 3. Structural allograft for spinal fusion 4. L4 bilateral laminectomies, foraminotomies, facetectomies, decompression of bilateral nerve roots 5. L5 bilateral laminectomies, foraminotomies, facetectomies, decompression of bilateral nerve roots 6. S1 bilateral laminectomies, foraminotomies, facetectomies, decompression of bilateral nerve roots 7. L4-5, L5-S1 posterolateral fusion 8. Pedicle screw fixation 9. Local autograft for spinal fusion 10. Neuro monitoring bilateral upper and bilateral lower extremities Statement of medical necessity: The patient is a 58-year-old female with intractable back and leg pain. Image studies confirm the above diagnoses. They have failed conservative treatments to include medications physical therapy and injections and have opted for operative intervention understanding the risk to include but not limited to infection, bleeding, damage to nerves arteries and veins, possibility of spinal fluid leak, nonunion, hardware failure, continued pain, need for further surgery, deep vein thrombosis, pulmonary embolism, heart attack, risk of stroke or . Description of the procedure: The patient was identified in the preoperative holding area. There they received preoperative IV antibiotics and was then transferred to the operative suite. Once in the operative suite after general endotracheal anesthesia was established, the patient was positioned prone on the Daniel operating table. All bony prominences were padded accordingly. The lumbar spine was prepped and draped in a standard fashion. Bear hugger's were not turned on until the drapes were placed and sealed with Ioban. A midline incision was made and taken down to the fascia. The fascia was divided and subperiosteal dissection was taken down to the level of the transverse processes and sacral ala of L4, L5, and S1 bilaterally. Deep retractors were placed. A bone scalpel was used to make cuts in the lamina and then a series of rongeurs and Kerrisons were used removing the spinous process and lamina of L4, L5, and S1. Then facetectomies of greater than 50% were performed as well as foraminotomies bilaterally at L4-5 and L5-S1 decompressing the bilateral nerve roots. Given the severity of the stenosis I needed to perform wide bilateral laminectomies and near complete facetectomies in order to decompress the neural elements. Disc created instability necessitating the fusion. I then proceeded with interbody fusion. The nerve roots and dura were identified and retracted medially. A knife was utilized to perform an annulotomy at L4-5. Endplate elevators, curettes, and pituitaries were utilized to remove disc material. Endplates were prepared with a rasp. An appropriate sized intervertebral peek cage device measuring 11mm was packed with structural allograft and impacted into position completing the posterior lumbar interbody fusion at the L4-5 level. I then proceeded with pedicle screw fixation. Starting points were found at the junction of the superior articular process and transverse processes and sacral ala of the L4, L5, and S1. A power bur was used for the starting points. Pedicle probes were placed bilaterally and then 6.0x50mm screws were placed bilaterally at L4 and L5 and 6.5x40mm screws were placed bilaterally at S 1. The screws were tested with intraoperative neurophysiologic monitoring and tested within normal limits. Connector rods were applied and secured with set screws. I then proceeded with the posterolateral fusion. This was accomplished by decorticating the transverse processes bilaterally at L4 and L5 and the sacral ala bilaterally at S1. This decorticated bone was then bridged with local autograft from the decompression as well as morselized cancellous allograft completing the posterolateral fusion of the L4-5 and L5-S1 levels. The incision was thoroughly irrigated. Tisseel was placed over the dura as a hemostatic agent. The fascia was closed with #1 Vicryl, subcutaneous with 2-0 Vicryl and skin with 2-0 nylon. A sterile dressing was applied with 4 x 4's ABD and tape. Sponge instrument and needle counts were correct at the end of the case. Neurophysiologic monitoring was maintained at baseline throughout the duration of the case. The patient was extubated and taken to the PACU without incident Surgeon: Reid Echeverria Type of Anesthesia: General Estimated Blood Loss (mL): 750cc Fluids Replaced: 1600cc Grafts/Implants Used: Unified spine Complications None Admit VTE Documentation VTE Present on Admission: No
--- NOTE | 2024-04-21 06:57 | PCM.PN.ORT ---
Subjective Subjective Seen and examined postop. Resting comfortably. Pain controlled. No complaints Objective Data Objective Data Vital Signs: Vital Signs Temp Pulse Resp BP Pulse Ox O2 Del Method 97.9 F 80 16 136/66 H 95 Room Air 04/21/24 06:09 04/21/24 06:09 04/21/24 06:09 04/21/24 06:09 04/21/24 06:09 04/21/24 06:09 Oxygen Delivery Method Room Air Weight: 192 lb Body Mass Index (BMI) 37.5 Lab / Micro Data 03/29/24 12:09 03/29/24 12:09 Labs: Laboratory Results - last 24 hr 04/21/24 06:12: POC Glucose 90 Micro: Microbiology 03/29/24 12:09 Swab (Method) Nasal Screen MRSA/MSSA - Final Physical Exam Const alert, oriented x3 and no apparent distress General Appearance: cooperative, comfortable and well kempt HEENT normocephalic and head/scalp atraumatic Eyes EOMs intact bilaterally and conjunctivae normal Neck full ROM General: normal visual inspection Chest inspection of chest normal and palpation of chest normal Resp normal respiratory effort and normal air movement Cardio regular rate, regular rhythm and peripheral pulses 2+ throughout GI soft to palpation, non-tender and non-distended Back/Spine Back/Spine Narrative: Dressing clean dry and intact Cervical Spine: cervical ROM normal Thoracic Spine / Upper Back: normal to inspection Lumbar Spine / Lower Back: normal to inspection Extremity normal to inspection, full ROM, normal capillary refill, no clubbing, cyanosis or edema and no calf tenderness Skin no rashes or lesions noted General Skin Exam: no breakdown Neuro oriented x3, CN's II-XII intact bilaterally, moves all extremities, no focal motor deficits, no sensory deficits noted and deep tendon reflexes 2+ bilaterally Motor Exam: muscle tone normal throughout Assessment & Plan Assessment/Plan (1) Lumbar stenosis: PLAN: Okay to admit See orders Discharge planning, likely home tomorrow
--- NOTE | 2024-04-21 06:58 | PCM.DC.SUM ---
Providers Date of Admission: 04/21/24 Primary Care Physician: Dr. Carson Jeong MD Reason For Visit: Lumbar 4 Lumbar 5 posterior lumbar Diagnosis Discharge Diagnosis (1) Lumbar stenosis: Status: Acute Code(s): M48.061 - Spinal stenosis, lumbar region without neurogenic claudication Plan: Okay to admit See orders Discharge planning, likely home tomorrow Medications at Discharge Home Medications omeprazole 40 mg capsule,delayed release 40 mg PO DAILY 06/15/17 ondansetron 4 mg disintegrating tablet 4 mg PO Q8H PRN PRN Nausea 06/15/17 sumatriptan succinate 100 mg tablet (Imitrex) 100 mg PO BID PRN PRN Pain 06/15/17 amitriptyline 25 mg tablet 25 mg PO QHS 06/08/23 atogepant 60 mg tablet (Qulipta) 60 mg PO DAILY 06/08/23 atorvastatin 20 mg tablet 40 mg PO QHS 06/08/23 lasmiditan 100 mg tablet (Reyvow) 100 mg PO DAILY PRN PRN MIGRAINE 06/08/23 levothyroxine 25 mcg tablet (Synthroid) 25 mcg PO DAILY 06/08/23 aripiprazole 5 mg tablet 5 mg PO DAILY #90 tabs 09/09/23 clonazepam 0.5 mg tablet 0.5 mg PO DAILY #90 tabs 09/09/23 escitalopram oxalate 10 mg tablet 10 mg PO DAILY #90 tabs 11/16/23 hydroxyzine HCl 25 mg tablet 25 mg PO BID PRN PRN anxiety 03/24/24 metformin 500 mg tablet,extended release 24 hr 500 mg PO BID 03/24/24 semaglutide 1 mg/dose (4 mg/3 mL) subcutaneous pen injector (Ozempic) 1 mg subcut MO 03/24/24 hydrocodone-acetaminophen 5-325mg 5mg-325mg 1 tab PO Q6H 7 days #28 tabs 04/21/24 metoprolol succinate 25 mg tablet,extended release 24 hr 25 mg PO DAILY 04/21/24 Hospital Course Operations - (L4-5 posterior lumbar interbody fusion, L4-5 and L5-S1 decompression, posterior spinal fusion with instrumentation, use of allograft) Summary of Care Provided Minutes Spent on Discharge: 15 Hospital Course: The patient is a 58-year-old female who underwent L4-S1 fusion on 04/21/2024. She was subsequently admitted. The hospitalist was consulted for medical management. The patient progressed well. Her pain was controlled and she was mobilizing well. No significant medical issues were reported. The patient was subsequently discharged home on 04/14/2024 to follow-up with Dr. Thornton 3 weeks Physical Exam Const alert, oriented x3 and no apparent distress General Appearance: cooperative, comfortable and well kempt Neck full ROM General: normal visual inspection Resp normal respiratory effort and normal air movement Effort and Inspection: able to speak in complete sentences Cardio regular rate and peripheral pulses 2+ throughout GI soft to palpation, non-tender and non-distended Back/Spine Back/Spine Narrative: Dressing clean dry and intact. Incision well-approximated with interrupted sutures in place. No tenderness erythema drainage or fluctuance Cervical Spine: cervical ROM normal Thoracic Spine / Upper Back: normal to inspection Lumbar Spine / Lower Back: normal to inspection Extremity normal to inspection, full ROM, normal capillary refill, no clubbing, cyanosis or edema and no calf tenderness Skin no rashes or lesions noted General Skin Exam: no breakdown Neuro oriented x3, CN's II-XII intact bilaterally, moves all extremities, no focal motor deficits, no sensory deficits noted and deep tendon reflexes 2+ bilaterally Motor Exam: strength 5/5 throughout and muscle tone normal throughout Weight / BMI Weight Weight: 192 lb Body Mass Index (BMI) 37.5 ABG / Lab / Microbiology Data 03/29/24 12:09 03/29/24 12:09 Laboratory: Laboratory Results - last 24 hr 04/21/24 06:12: POC Glucose 90 Microbiology: Microbiology 03/29/24 12:09 Swab (Method) Nasal Screen MRSA/MSSA - Final D/C Instructions Discharge Diet: No restrictions Additional Activity Instructions: No repetitive bending twisting or lifting greater than 5 pounds. Wear back brace at all times. Okay to remove brace to sleep Call your doctor if your incision/area has: Continuous Slow Oozing, Sudden Increased Bleeding, Increased Pain/ Swelling, Increased Redness, Foul Smelling Discharge and Swelling at the incision site Call your doctor if you observe: Fever of 101 or Higher, Coldness, Increased Pain, Numbness or Tingling, Change in Color, Inability to urinate, Inability to have a bowel movement, Using more than 1 pad per hour, Shortness of breath, Dizziness, Fainting spells, Swelling in the ankles, Chest pain, Prolonged hiccupping, Increased palpitations (irregular heartbeat), Calf discomfort and Uncontrolled pain Additional Dressing/Incision Instructions: Change dressing daily with gauze and tape Additional Instructions: 1. During your procedure, you received sedation through your IV. Please follow these instructions for the next 24 hours: Do not drive a motor vehicle, do not drink any alcoholic beverages, and do not sign any legal documents or make personal or business decisions. A responsible adult should stay with you at least 6 hours after the procedure. 2. Keep your surgical site/incision clean and the dressing dry and intact. You may use an ice pack at the surgical site to reduce any swelling or discomfort. 3. Monitor the incision site for any signs or symptoms of infection. Watch for redness, excessive swelling or drainage, or continued pain at the incision site after 3 days. Contact your physician immediately for a fever, chills or a temperature of 101.5? F or greater. 4. Take your medication exactly as prescribed by your physician. Do not attempt to wean yourself off any of your medications even though your pain is improving. This process needs to be carefully monitored by your doctor. Take any antibiotics prescribed exactly as directed and until they are gone. 5. Avoid stretching, bending, pulling, twisting or any sudden movements. Do not bend or twist at the waist. Wear back brace at all times 6. No lifting greater than 5 pounds. 7. Do not operate a motor vehicle, equipment or a power tool while taking pain medication 8. Do not have any manipulation done by a chiropractor or any other physician without first consulting with the surgeon 9. Please contact our office if you are even scheduled for a CT scan or an MRI. 10. Please call us if you have any questions, problems or concerns. Please Follow Up With: Reid Echeverria DO When: 3 weeks Meaningful Use Info Meaningful Use Meaningful Use Diagnoses (Choose all that apply): None applicable Ischemic Stroke Statin Dosing Therapy Reference: STATIN DOSE THERAPY REFERENCE: * Patients > 75 years receive moderate or high dose statin therapy. * Patients 75 years or YOUNGER should receive HIGH intensity statin dose unless contraindicated. You will be required to document reason for non-treatment if statin daily dose does not meet guidelines. HIGH DOSE STATIN THERAPY DAILY Atorvastatin > than or = to 40 mg Rosuvastatin > than or = to 20 mg Amlodipine + Atorvastatin > than or = to 2.5/40 mg Ezetimibe + Simvastatin 10/80 mg Simvastatin 80mg Discharge Plan Admission Admit Date/Time: 04/21/24 17:52 Attending Provider: Reid Echeverria Primary Care Provider: Carson Jeong Consulting Providers: Madison Cabrera Instructions Additional Instructions / Restrictions: 1. During your procedure, you received sedation through your IV. Please follow these instructions for the next 24 hours: Do not drive a motor vehicle, do not drink any alcoholic beverages, and do not sign any legal documents or make personal or business decisions. A responsible adult should stay with you at least 6 hours after the procedure. 2. Keep your surgical site/incision clean and the dressing dry and intact. You may use an ice pack at the surgical site to reduce any swelling or discomfort. 3. Monitor the incision site for any signs or symptoms of infection. Watch for redness, excessive swelling or drainage, or continued pain at the incision site after 3 days. Contact your physician immediately for a fever, chills or a temperature of 101.5? F or greater. 4. Take your medication exactly as prescribed by your physician. Do not attempt to wean yourself off any of your medications even though your pain is improving. This process needs to be carefully monitored by your doctor. Take any antibiotics prescribed exactly as directed and until they are gone. 5. Avoid stretching, bending, pulling, twisting or any sudden movements. Do not bend or twist at the waist. Wear back brace at all times 6. No lifting greater than 5 pounds. 7. Do not operate a motor vehicle, equipment or a power tool while taking pain medication 8. Do not have any manipulation done by a chiropractor or any other physician without first consulting with the surgeon 9. Please contact our office if you are even scheduled for a CT scan or an MRI. 10. Please call us if you have any questions, problems or concerns. Discharge Orders/Prescriptions Prescriptions: New hydrocodone-acetaminophen 5-325 mg tablet 1 tab PO Q6H 7 Days Qty: 28 0RF Continued Qulipta 60 mg tablet 60 mg PO DAILY amitriptyline 25 mg tablet 25 mg PO QHS Patient Comments: take 1 tablet by mouth at bedtime aripiprazole 5 mg tablet 5 mg PO DAILY Qty: 90 1RF clonazepam 0.5 mg tablet 0.5 mg PO DAILY Qty: 90 1RF escitalopram oxalate 10 mg tablet 10 mg PO DAILY Qty: 90 1RF atorvastatin 20 mg tablet 40 mg PO QHS Patient Comments: cholesterol hydroxyzine HCl 25 mg tablet 25 mg PO BID PRN PRN (Reason: anxiety) No Action Reyvow 100 mg tablet 100 mg PO DAILY PRN PRN (Reason: MIGRAINE) Patient Comments: take 1 tablet by mouth AT ONSET OF MIGRAINE - MAY REPEAT IN 4 MANI... (REFER TO PRESCRIPTION NOTES). levothyroxine [Synthroid] 25 mcg tablet 25 mcg PO DAILY sumatriptan succinate [Imitrex] 100 MG tablet 100 mg PO BID PRN PRN (Reason: Pain) Patient Comments: Migraines omeprazole 40 MG capsule,delayed release(DR/EC) 40 mg PO DAILY Patient Comments: acid reflux ondansetron 4 MG tablet 4 mg PO Q8H PRN PRN (Reason: Nausea) Patient Comments: nausea metformin 500 mg tablet extended release 24 hr 500 mg PO BID Ozempic 1 mg/dose (4 mg/3 mL) pen injector 1 mg subcut MO metoprolol succinate 25 mg tablet extended release 24 hr 25 mg PO DAILY Referrals / Follow Up: Reid Echeverria DO [Med Staff - Active Staff] - Carson Jeong MD [[facility]] - Disposition Disposition (needs filled in before D/C Order can be placed): Home, Self Care
--- NOTE | 2024-04-21 07:33 | PRE.ANES_ITS ---
ASA Classification* ASA Classification ASA Classification: 3 Assessment & Plan Anesthesia* Anesthesia Assessment Anesthesia Assessment: Discussed sedation and/or anesthesia options, risks, benefits, and alternatives with patient/parents/legal guardian/POA. Questions invited. The patient/parents/legal guardian/POA seems to understand and agrees to proceed with anesthesia plan. Reviewed the physical assessment, medical history, allergy history and patient home medications list prior to surgery/procedure/anesthetic and documented any changes. Performed airway and anesthesia risk assessments. Procedural Plan Procedural Plan:: Proceed w/ Anesthesia plan, NOT optimized for anesthesia, Patient canceled surgery and Surgeon canceled surgery Anesthesia Type Anesthesia Type: General Anesthesia Focused Assessment* Temperature: 97.9 F Pulse Rate: 80 Blood Pressure: 136/66 Respiratory Rate: 16 Pulse Ox: 95 Airway Assessment Mouth opens: >3 cm Mallampati Score: III Focused Labs Anesthesia Preop lab: CBC WBC 7.6 K/mm3 (4.4-11.0) 03/29/24 12:09 RBC 4.93 M/mm3 (4.2-5.4) 03/29/24 12:09 Hgb 13.8 g/dL (12.0-15.0) 03/29/24 12:09 Hct 44.1 % (37-47) 03/29/24 12:09 Plt Count 236 K/mm3 (150-450) 03/29/24 12:09 CHEMISTRY Potassium 4.6 mmol/L (3.5-5.1) 03/29/24 12:09 Sodium 137 mmol/L (136-145) 03/29/24 12:09 Magnesium 2.3 mg/dL (1.6-2.6) 03/29/24 12:09 BUN 18 mg/dL (7-18) 03/29/24 12:09 Creatinine 0.87 mg/dL (0.55-1.02) 03/29/24 12:09 Glucose 111 mg/dL (74-106) H 03/29/24 12:09 POC Glucose 90 mg/dL (74-106) 04/21/24 06:12 TSH 1.53 uIU/mL (0.358-3.74) 03/29/24 12:09 COAG PT 13.6 SECONDS (11.7-14.9) 03/29/24 12:09 Pre-Assessment Diagnosis/Proposed Procedure Planned Operative Procedure(s): L4-5 POSTERIOR LUMBAR INTERBODY FUSION AND L4-5,L5-S1 DECOMPRESSION AND POSTERIOR SPINAL FUSION WITH INSTRUMENTATION USE OF ALLOGRAFT Anesthesia History 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 When Was Last Pacemaker Check QUESTION #4 FULL TEXT: You/Your Family Experience fever (hyperthermia) with Anesthesia Last Oral Intake Last Oral intake: Last Oral Intake NPO since 03:00 04/21/24 06:09 Meds taken in AM with sips of Yes 04/21/24 06:09 water? 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 Female Yes 03/24/24 14:09 HX of Motion Sickness Yes 03/24/24 14:09 HX of N/V After Surgery No 03/24/24 14:09 Non-Smoker Yes 03/24/24 14:09 Duration of Surgery greater Yes 03/24/24 14:09 than 60 minutes Number of Risk Factors 4 03/24/24 14:09 PONV Score Severe Risk 03/24/24 14:09 Height & Weight Height & Weight: Anesthesia: Height & Weight Height 5 ft 04/21/24 06:09 Weight: 87.09 kg 04/21/24 06:09 Body Mass Index (BMI) 37.5 04/21/24 06:09 Respiratory Assessment Respiratory Assessment - optical lathe operator: Respiratory Tract Infection Hx - optical lathe operator Hx Respiratory Tract Infection No 03/24/24 14:09 STOP Sleep Apnea STOP Sleep Apnea - optical lathe operator: STOP Sleep Apnea - optical lathe operator Hx Hypertension Yes: CONTROLLED WITH MED 03/24/24 14:09 Hx Sleep Apnea No 03/24/24 14:09 CPAP BIPAP Do you snore loudly (louder No 03/24/24 14:09 than talking or can be heard Do you often feel tired/ No 03/24/24 14:09 fatigued/ sleepy during daytime? Has anyone observed you stop No 03/24/24 14:09 breathing during sleep? STOP Results Negative 03/24/24 14:09 QUESTION #5 FULL TEXT : Do you snore loudly (louder than talking or can be heard through closed doors)? 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 Specify any problems Hx of Preganancy in last 3 No 03/24/24 14:09 Months Nurse Filling Out Transfusion DSCHRIBER 03/24/24 14:09 & Questions: Date: 03/24/24 03/24/24 14:09 Time: 14:11 03/24/24 14:09 Patient unable to answer at this time (ie. confused, unrespo /Reproduction History /Reproductive History - optical lathe operator: /Reproductive Hx- optical lathe operator Hx Now No 03/24/24 14:09 Gestational Age (in weeks): EDC: Hx Hx Para Hx Section SAB No 03/24/24 14:09 Active Medications Active Medications: Current Medications Generic Name Dose Route Start Last Admin Trade Name Freq PRN Reason Stop Dose Admin Acetaminophen 1,000 mg 04/21/24 14:00 Acetaminophen 500 Mg Tablet PO Q8 JAZMIN Amitriptyline HCl 25 mg 04/21/24 22:00 Amitriptyline 25 Mg Tablet PO QHS JAZMIN Aripiprazole 5 mg 04/21/24 10:00 Aripiprazole 5 Mg Tablet PO DAILY JAZMIN Protocol Atorvastatin Calcium 40 mg 04/21/24 22:00 Atorvastatin Calcium 40 Mg Tablet PO QHS JAZMIN Clonazepam 0.5 mg 04/21/24 10:00 Clonazepam 0.5 Mg Tablet PO DAILY [facility] Enteral Nutritional Formula 237 ml 04/21/24 08:00 Ensure Surgery 237 Ml Liquid PO TIDCM [facility] Hydroxyzine Pamoate 25 mg 04/21/24 07:04 Hydroxyzine Ronda 25 Mg Capsule PO BID PRN PRN anxiety Lactated Ringer's 1,000 mls @ 999 mls/hr 04/21/24 07:30 04/21/24 06:22 IV 04/21/24 08:30 999 mls/hr .Q1H1M JAZMIN Administration Lactated Ringer's 1,000 mls @ 125 mls/hr 04/21/24 07:30 IV 04/21/24 15:29 .Q8H JAZMIN Magnesium Sulfate 1 gm/ 102 mls @ 408 mls/hr 04/21/24 07:30 04/21/24 06:21 Dextrose IV 04/21/24 07:44 408 mls/hr X1 ONE Administration Vancomycin HCl 1,250 mg/ 275 mls @ 167 mls/hr 04/21/24 07:30 04/21/24 06:21 Sodium Chloride IV 04/21/24 09:08 167 mls/hr PREOP ONE Administration Lactated Ringer's 1,000 mls @ 75 mls/hr 04/21/24 05:45 04/21/24 06:20 IV 75 mls/hr .[id number] JAZMIN Administration Lactated Ringer's 1,000 mls @ 100 mls/hr 04/21/24 07:15 IV .Q10H JAZMIN Clindamycin Phosphate 900 mg in 50 mls @ 75 mls/hr 04/21/24 07:15 Cleocin IV 04/21/24 15:54 Q8H [facility] Insulin Human Lispro 1 - 6 unit 04/21/24 07:30 Insulin Lispro 100 Unit/Ml Insuln.Pen SC Q4H PRN PRN BG>/= 180, SEE PROTOCOL Protocol Levothyroxine Sodium 25 mcg 04/21/24 10:00 Levothyroxine 25 Mcg Tablet PO DAILY [facility] Metformin HCl 500 mg 04/21/24 10:00 Metformin (Xr) 500 Mg Tablet PO BID [facility] Metoprolol Succinate 25 mg 04/21/24 10:00 Metoprolol(Xl)Succ 25 Mg Tablet PO DAILY [facility] Protocol Morphine Sulfate 2 - 4 mg 04/21/24 07:03 Morphine 4 Mg/Ml Syringe IV Q2H PRN PRN Pain Score 6-10 Non-Formulary Medication 60 mg 04/21/24 10:00 Atogepant [Qulipta] PO DAILY [facility] Non-Formulary Medication 10 mg 04/21/24 10:00 Escitalopram Oxalate PO DAILY [facility] Non-Formulary Medication 100 mg 04/21/24 07:04 Lasmiditan [Reyvow] PO DAILY PRN PRN MIGRAINE Non-Formulary Medication 1 mg 04/25/24 07:04 Semaglutide [Ozempic] SC MO [facility] Non-Formulary Medication 100 mg 04/21/24 07:04 Sumatriptan Succinate [Imitrex] PO BID PRN PRN Pain Ondansetron HCl 4 mg 04/21/24 07:04 Ondansetron Odt 4 Mg Tablet PO Q8H PRN PRN Nausea Oxycodone HCl 2.5 - 5 mg 04/21/24 07:03 Oxycodone 5 Mg Tablet PO Q4H PRN PRN Pain Score 6-10 Pantoprazole Sodium 40 mg 04/21/24 10:00 Pantoprazole Sodium 40 Mg Tablet PO DAILY [facility] Medical History Wears glasses Diabetes Restless legs Back pain Injury of back Migraine headache Blackout Dietary restriction History of diverticulitis Non-smoker Shortness of breath on exertion Panic disorder Bipolar II disorder Thyroid disease GERD (gastroesophageal reflux disease) Osteoarthritis Neuropathy Fatty liver IBS (irritable bowel syndrome) High cholesterol Hypertension Bipolar 1 disorder Home Medications ?Medication ?Instructions ?Recorded ?Last Taken ?Type omeprazole 40 mg capsule,delayed 40 mg PO DAILY 06/15/17 04/21/24 03:00 History release ondansetron 4 mg disintegrating 4 mg PO Q8H PRN PRN Nausea 06/15/17 06/15/17 History tablet sumatriptan succinate 100 mg 100 mg PO BID PRN PRN Pain 06/15/17 Unknown History tablet (Imitrex) amitriptyline 25 mg tablet 25 mg PO QHS 06/08/23 04/20/24 20:00 History atogepant 60 mg tablet (Qulipta) 60 mg PO DAILY 06/08/23 04/21/24 03:00 History atorvastatin 20 mg tablet 40 mg PO QHS 06/08/23 04/20/24 20:00 History lasmiditan 100 mg tablet (Reyvow) 100 mg PO DAILY PRN PRN MIGRAINE 06/08/23 Unknown History levothyroxine 25 mcg tablet 25 mcg PO DAILY 06/08/23 04/21/24 03:00 History (Synthroid) aripiprazole 5 mg tablet 5 mg PO DAILY #90 tabs 09/09/23 04/21/24 03:00 Rx clonazepam 0.5 mg tablet 0.5 mg PO DAILY #90 tabs 09/09/23 04/21/24 03:00 Rx escitalopram oxalate 10 mg tablet 10 mg PO DAILY #90 tabs 11/16/23 04/21/24 03:00 Rx hydroxyzine HCl 25 mg tablet 25 mg PO BID PRN PRN anxiety 03/24/24 Unknown History metformin 500 mg tablet,extended 500 mg PO BID 03/24/24 04/20/24 20:00 History release 24 hr semaglutide 1 mg/dose (4 mg/3 mL) 1 mg subcut MO 03/24/24 04/11/24 History subcutaneous pen injector (Ozempic) hydrocodone-acetaminophen 5-325mg 1 tab PO Q6H 7 days #28 tabs 04/21/24 Unknown Rx 5mg-325mg metoprolol succinate 25 mg 25 mg PO DAILY 04/21/24 04/21/24 03:00 History tablet,extended release 24 hr Allergy/AdvReac Type Severity Reaction Status Date / Time Cephalosporins Allergy Rash Verified 04/21/24 05:59 Penicillins (PCN) Allergy Rash Verified 04/21/24 05:59 Sulfa (Sulfonamide Allergy Rash Verified 04/21/24 05:59 Antibiotics) Family History Other Anxiety Arthritis Cancer Depression Diabetes Heart disease Hypertension Liver disease Surgical History Hx of esophagogastroduodenoscopy Hx of colonoscopy Hx of arthroscopic knee surgery Hx laparoscopic cholecystectomy History of back surgery H/O: hysterectomy History of total right knee replacement Social History Smoking Status: Never smoker alcohol intake: never substance use type: does not use what type of physical activity do you participate in: walking Review of Systems (Anesthesia) ROS Narrative System reviewed and no additional complaints, except as documented.
[2024-04-21] MEDS: THROMBIN (RECOMBINANT) 20,000 UNIT VIAL 20000 UNIT TOPICAL (08:09)
[2024-04-21] MEDS: Heparin 10,000 UNITS/10 ML Vial 10000 UNITS (08:09)
[2024-04-21] MEDS: Bupivacaine 0.25% 30 ML Vial (11:35)
--- NOTE | 2024-04-21 12:04 | PCM.POST.ANE ---
Anesthesia: Postop Eval I Current Vital Signs Temperature: 97.2 F Pulse Rate: 90 Blood Pressure: 122/64 Respiratory Rate: 16 Pulse Ox: 100 Oxygen Delivery Method: Simple Mask Oxygen Flow Rate (L/min): 6 Assessment Airway patent: Yes Spontaneous unlabored respirations: Yes Mental status: Asleep nausea: No Vomiting: No Anesthesia Complication: No Fluid Hydration Crystalloid volume administer (ml): 2,000 Total IV fluid infused: 2,000 Progress Note Anesthesia document: Postop Eval 1 completed: Yes
[2024-04-21 12:46] LABS: Bedside Glucose 200 mg/dL (74-106)
[2024-04-21] MEDS: LACTATED RINGERS 125 ML IV (13:15)
--- NOTE | 2024-04-21 13:24 | POSTOPAN2_ITS ---
Anesthesia Postop Eval I Sum Postop Eval Completion status Anesthesia document: Postop Eval 1 completed: Yes Anesthesia Postop Eval I Summary Anesthesia Postop Eval I Summary: Anesthesia Postop Eval I: Assessment Summary Airway patent Yes 04/21/24 12:05 MEMORY CARE PROGRAM RESIDENT.SKOBY Spontaneous unlabored Yes 04/21/24 12:05 MEMORY CARE PROGRAM RESIDENT.JADE respirations Mental status Asleep 04/21/24 12:05 MEMORY CARE PROGRAM RESIDENT.NIDAOBY nausea No 04/21/24 12:05 MEMORY CARE PROGRAM RESIDENT.NIDAOBJanie Vomiting No 04/21/24 12:05 MEMORY CARE PROGRAM RESIDENT.NIDAOBJanie Anesthesia Postop Eval I: Fluid Summary Crystalloid volume administer 2,000 04/21/24 12:05 MEMORY CARE PROGRAM RESIDENT.SKOBY (ml) Colloids volume administered ( ml) Blood Product volume administered (ml) Total IV fluid infused 2,000 04/21/24 12:05 MEMORY CARE PROGRAM RESIDENT.JADE Anesthesia Postop Eval I: Summary Notes Anesthesia Complication No 04/21/24 12:05 MEMORY CARE PROGRAM RESIDENT.JADE Anesthesia Complication Comment: Post-operative progress note Anesthesia: Postop Eval II Evaluation Mental status: Awake Pain Level: 0 nausea: No Vomiting: No
--- NOTE | 2024-04-21 13:24 | PCM.POSTANE2 ---
Anesthesia Postop Eval I Sum Postop Eval Completion status Anesthesia document: Postop Eval 1 completed: Yes Anesthesia Postop Eval I Summary Anesthesia Postop Eval I Summary: Anesthesia Postop Eval I: Assessment Summary Airway patent Yes 04/21/24 12:05 VENEER SUPERVISOR.SKOBY Spontaneous unlabored Yes 04/21/24 12:05 VENEER SUPERVISOR.JADE respirations Mental status Asleep 04/21/24 12:05 VENEER SUPERVISOR.NIDAOBY nausea No 04/21/24 12:05 VENEER SUPERVISOR.NIDAOBJanie Vomiting No 04/21/24 12:05 VENEER SUPERVISOR.NIDAOBJanie Anesthesia Postop Eval I: Fluid Summary Crystalloid volume administer 2,000 04/21/24 12:05 VENEER SUPERVISOR.SKOBY (ml) Colloids volume administered ( ml) Blood Product volume administered (ml) Total IV fluid infused 2,000 04/21/24 12:05 VENEER SUPERVISOR.JADE Anesthesia Postop Eval I: Summary Notes Anesthesia Complication No 04/21/24 12:05 VENEER SUPERVISOR.JADE Anesthesia Complication Comment: Post-operative progress note Anesthesia: Postop Eval II Evaluation Mental status: Awake Pain Level: 0 nausea: No Vomiting: No
[2024-04-21] MEDS: Insulin Lispro 100 UNIT/ML INSULN.PEN SC (13:36)
[2024-04-21] MEDS: oxyCODONE 5 MG Tablet PO ×2 (14:37→20:29)
[2024-04-21] MEDS: Lactated Ringers 1,000 ML 100 ML IV (16:07)
[2024-04-21 16:34] LABS: Bedside Glucose 168 mg/dL (74-106)
[2024-04-21] MEDS: Ensure Surgery 237 ML LIQUID PO (17:11)
[2024-04-21] MEDS: metFORMIN (XR) 500 MG Tablet PO (17:11)
[2024-04-21] MEDS: Morphine 2 MG/ML Syringe IV (17:14)
--- NOTE | 2024-04-21 19:34 | PCM.CONS.GEN ---
Assessment & Plan Assessment/Plan (1) Lumbar stenosis: QUALIFIERS: Neurogenic claudication status: unspecified Qualified Code(s): M48.061 - Spinal stenosis, lumbar region without neurogenic claudication (2) Hypothyroid: QUALIFIERS: Hypothyroidism type: unspecified Qualified Code(s): E03.9 - Hypothyroidism, unspecified (3) Diabetes: QUALIFIERS: Diabetes mellitus complication status: with hyperglycemia Diabetes mellitus half-way insulin use: without terminal system operator use Diabetes mellitus type: type 2 Qualified Code(s): E11.65 - Type 2 diabetes mellitus with hyperglycemia (4) Bipolar II disorder: (5) Migraine headache: QUALIFIERS: Intractability: not intractable Migraine type: unspecified Status migrainosus presence: without status migrainosus Qualified Code(s): G43.909 - Migraine, unspecified, not intractable, without status migrainosus PLAN: Plan KRYSTAL HYLTON, is a 58 F with a significant history of bipolar 2 disorder; type 2 diabetes; hypothyroidism; morbid obesity and others who is postop day 0 for spinal fusion and others and for which internal medicine has been for medical management of chronic medical conditions including bipolar disorder; diabetes; hypothyroidism and others as above. Spinal stenosis status post spinal fusion Continue pain medications. Managed by primary Morbid obesity BMI 37.5 kg per square. Complicates care. Lifestyle modification recommended. Type 2 diabetes mellitus with hyperglycemia On home Ozempic. Takes Ozempic on Mondays. Per patient's instructed by carpenter inspector to be off Ozempic and resume after surgery. Continue Ozempic outpatient. Blood glucose stable. Migraine headache On routine Qulipta, continued. Continue other as needed Hypothyroidism Stable Continue home thyroid medications. Bipolar disorder 2 Stable Continue home bipolar medications. DVT prophylaxis: SCDs and PATIENCE hose in place. Thank you for your kind consult. Internal medicine service will continue to follow. Advance care planning: Discussed with patient and family advanced directives as well as CODE STATUS. Explained various CODE STATUS: FULL CODE, DNR CCA, DNR CCA with no intubation, and DNR CC- and what each meant. Patient elected to be a full code with CPR and intubation if warranted. Order was placed. Her medical power of relief man is her . Time spent on discussion 16 minutes. Time spent in the patient's overall evaluation,decision-making process, review of diagnostic data, adjustment of management, discussion with other providers, nursing and ancillary staff involved in patient's care documentation, 50 minutes. Code: 31281 HPI Consult Data Date of Consult: 04/21/24 HPI Narrative Reason for Consultation: Medical management HPI Narrative: KRYSTAL HYLTON, is a 58 F with a significant history of bipolar 2 disorder; type 2 diabetes; hypothyroidism; morbid obesity and others who is postop day 0 for spinal fusion and others and for which internal medicine has been for medical management of chronic medical conditions including bipolar disorder; diabetes; hypothyroidism and others as above. Patient was seen post surgery at that time that she had already received nausea and pain medication; and after which she denies any symptoms. [facility] Medical History (Updated 04/21/24 @ 21:[address] Jude Soria MD) Wears glasses Diabetes Restless legs Back pain Injury of back Migraine headache Blackout Dietary restriction History of diverticulitis Non-smoker Shortness of breath on exertion Panic disorder Bipolar II disorder Thyroid disease GERD (gastroesophageal reflux disease) Osteoarthritis Neuropathy Fatty liver IBS (irritable bowel syndrome) High cholesterol Hypertension Bipolar 1 disorder Home Medications ?Medication ?Instructions ?Recorded ?Last Taken ?Type omeprazole 40 mg capsule,delayed 40 mg PO DAILY 06/15/17 04/21/24 03:00 History release ondansetron 4 mg disintegrating 4 mg PO Q8H PRN PRN Nausea 06/15/17 06/15/17 History tablet sumatriptan succinate 100 mg 100 mg PO BID PRN PRN Pain 06/15/17 Unknown History tablet (Imitrex) amitriptyline 25 mg tablet 25 mg PO QHS 06/08/23 04/20/24 20:00 History atogepant 60 mg tablet (Qulipta) 60 mg PO DAILY 06/08/23 04/21/24 03:00 History atorvastatin 20 mg tablet 40 mg PO QHS 06/08/23 04/20/24 20:00 History lasmiditan 100 mg tablet (Reyvow) 100 mg PO DAILY PRN PRN MIGRAINE 06/08/23 Unknown History levothyroxine 25 mcg tablet 25 mcg PO DAILY 06/08/23 04/21/24 03:00 History (Synthroid) aripiprazole 5 mg tablet 5 mg PO DAILY #90 tabs 09/09/23 04/21/24 03:00 Rx clonazepam 0.5 mg tablet 0.5 mg PO DAILY #90 tabs 09/09/23 04/21/24 03:00 Rx escitalopram oxalate 10 mg tablet 10 mg PO DAILY #90 tabs 11/16/23 04/21/24 03:00 Rx hydroxyzine HCl 25 mg tablet 25 mg PO BID PRN PRN anxiety 03/24/24 Unknown History metformin 500 mg tablet,extended 500 mg PO BID 03/24/24 04/20/24 20:00 History release 24 hr semaglutide 1 mg/dose (4 mg/3 mL) 1 mg subcut MO 03/24/24 04/11/24 History subcutaneous pen injector (Ozempic) hydrocodone-acetaminophen 5-325mg 1 tab PO Q6H 7 days #28 tabs 04/21/24 Unknown Rx 5mg-325mg metoprolol succinate 25 mg 25 mg PO DAILY 04/21/24 04/21/24 03:00 History tablet,extended release 24 hr Allergy/AdvReac Type Severity Reaction Status Date / Time Cephalosporins Allergy Rash Verified 04/21/24 05:59 Penicillins (PCN) Allergy Rash Verified 04/21/24 05:59 Sulfa (Sulfonamide Allergy Rash Verified 04/21/24 05:59 Antibiotics) Family History Other Anxiety Arthritis Cancer Depression Diabetes Heart disease Hypertension Liver disease Surgical History Hx of esophagogastroduodenoscopy Hx of colonoscopy Hx of arthroscopic knee surgery Hx laparoscopic cholecystectomy History of back surgery H/O: hysterectomy History of total right knee replacement Social History Smoking Status: Never smoker alcohol intake: never substance use type: does not use what type of physical activity do you participate in: walking ROS ROS Narrative Pertinent positives and pertinent negatives as noted in HPI. All other systems were reviewed and are negative Physical Exam Narrative Physical exam: General: Well-nourished, well-developed. Head: Normocephalic, atraumatic, no tenderness Eyes: Vision is grossly intact. EOMI ENT, no trauma, moist mucous membranes, no rhinorrhea Neck: Nontender, No thyromegaly. CVS: Regular rate and rhythm. S1-S2 present. No murmur, gallop or rub. Respiratory : clear to auscultation bilaterally, chest wall nontender Abdomen: Soft, nontender, nondistended, normal bowel sounds, no masses : Deferred Back: Dressing in place, dry and intact. Extremities: Nontender full range of motion, no trauma Skin: Normal color, no trauma, abrasions Neuro: Alert, oriented, cranial nerves II through XII grossly intact. Psychiatry: Normal mood. Normal affect. Not depressed. Not anxious. Lab / Micro Data 03/29/24 12:09 03/29/24 12:09 Labs: Laboratory Results - last 24 hr 04/21/24 06:12: POC Glucose 90 04/21/24 12:27: POC Glucose 200 H 04/21/24 16:10: POC Glucose 168 H Charges/Coding Visit Charges Inpatient E&M: 55560 [facility] Hosp L3
[2024-04-21] MEDS: Ondansetron ODT 4 MG Tablet PO (20:17)
[2024-04-21] MEDS: 0.9% Normal Saline (250mL Bag) 250 ML 15 ML IV (22:09)
[2024-04-21] MEDS: Clindamycin 900 MG/50 ML BAG 75 MG IV (22:09)
[2024-04-21] MEDS: Atorvastatin Calcium 40 MG Tablet PO (22:17)
[2024-04-21] MEDS: Amitriptyline 25 MG Tablet PO (22:17)
[2024-04-21 23:01] LABS: Bedside Glucose 177 mg/dL (74-106)
[2024-04-22 00:02] VITALS: PULSE 83
[2024-04-22] MEDS: oxyCODONE 5 MG Tablet PO ×2 (00:51→05:54)
[2024-04-22] MEDS: hydrOXYzine PAM 25 MG Capsule PO (02:06)
[2024-04-22] MEDS: Ondansetron ODT 4 MG Tablet PO (05:44)
[2024-04-22 05:45] VITALS: BP 104/52; PULSE 90; RESP 18; TEMP 36.6; O2SAT 94
[2024-04-22] MEDS: Levothyroxine 25 MCG TABLET PO (05:55)
[2024-04-22] MEDS: Acetaminophen 500 MG Tablet 1000 MG PO (05:55)
[2024-04-22] MEDS: Clindamycin 900 MG/50 ML BAG 75 MG IV (05:56)
[2024-04-22 08:15] VITALS: PULSE 87
[2024-04-22] MEDS: Metoprolol(XL)Succ 25 MG Tablet PO (08:15)
[2024-04-22] MEDS: Pantoprazole Sodium 40 MG Tablet PO (08:15)
[2024-04-22] MEDS: metFORMIN (XR) 500 MG Tablet PO (08:15)
[2024-04-22] MEDS: Escitalopram Oxalate 10 MG Tablet PO (08:16)
[2024-04-22] MEDS: ARIPiprazole 5 MG Tablet PO (08:16)
[2024-04-22] MEDS: clonazePAM 0.5 MG Tablet PO (08:19)
[2024-04-22] MEDS: Morphine 2 MG/ML Syringe IV (08:19)
[2024-04-22] MEDS: Ensure Surgery 237 ML LIQUID PO (08:31)
[2024-04-22 08:56] VITALS: BP 104/51; PULSE 87; RESP 16; TEMP 36.7; O2SAT 96
[2024-04-22 09:01] VITALS: PULSE 112
--- NOTE | 2024-04-22 10:32 | CASEMGMT ---
SOILA DUGGAN Assessment: Face to Face with pt for initial transition planning/care coordination assessment. SOILA DUGGAN introduced self and role at [facility], pt voices understanding and consents to assessment. Pt was sitting up in chair in no distress. Pt is A&O x4 and answers all questions appropriately at this time. Care providers, pharmacy, and demographics verified/updated. Admitting Dx: Lumbar 4 lumbar 5 posterior lumbar PCP: Adenike Specialists: Cali - endo, Christian - neuro, Seese - phsych Preferred Pharmacy: [facility] Insurance: [employer] Prescription Benefit: yes LNOK: Mervin - Living Arrangements: Pt lives with in a ranch home with 1 step to enter. Pt states I with ADLs and IADLs. Transportation: Pt states drives her, will be picking her up at [place]. DME: Walker, [place] toilet, Cane, glucometer and supplies, Continuous Glucometer Meter HHC/SNF: Previously used HHC services - does not recall agency, Denies Hx of SNF. Pt states no concerns with going home at time of dc. Pt states no further concerns/needs. CM to follow. Advised pt to ask CM if any further question/concerns/needs arise, voices understanding. Pt Goal: Home Plan: Home no needs David CM CM
--- NOTE | 2024-04-22 11:34 | PHA.DC.MC.R ---
Pharmacy [facility] Pharmacy Service has performed discharge medication reconciliation and counseling for this patient. The patient's discharge medication list was reviewed for discrepancies and discrepancies were resolved. The patient was counseled on the following discharge medications and changes in medications for homegoing were reviewed. 1. NORCO The Reason for Use, instructions for use, and potential side effects were reviewed for all new medications. The patient's questions regarding all of their medications were answered. The patient was able to verbally demonstrate an understanding of their discharge medications. The patient was counselled by Martine Dickens PharmD Candidate Medications at Discharge Home Medications omeprazole 40 mg capsule,delayed release 40 mg PO DAILY 06/15/17 ondansetron 4 mg disintegrating tablet 4 mg PO Q8H PRN PRN Nausea 06/15/17 sumatriptan succinate 100 mg tablet (Imitrex) 100 mg PO BID PRN PRN Pain 06/15/17 amitriptyline 25 mg tablet 25 mg PO QHS 06/08/23 atogepant 60 mg tablet (Qulipta) 60 mg PO DAILY 06/08/23 atorvastatin 20 mg tablet 40 mg PO QHS 06/08/23 lasmiditan 100 mg tablet (Reyvow) 100 mg PO DAILY PRN PRN MIGRAINE 06/08/23 levothyroxine 25 mcg tablet (Synthroid) 25 mcg PO DAILY 06/08/23 aripiprazole 5 mg tablet 5 mg PO DAILY #90 tabs 09/09/23 clonazepam 0.5 mg tablet 0.5 mg PO DAILY #90 tabs 09/09/23 escitalopram oxalate 10 mg tablet 10 mg PO DAILY #90 tabs 11/16/23 hydroxyzine HCl 25 mg tablet 25 mg PO BID PRN PRN anxiety 03/24/24 metformin 500 mg tablet,extended release 24 hr 500 mg PO BID 03/24/24 semaglutide 1 mg/dose (4 mg/3 mL) subcutaneous pen injector (Ozempic) 1 mg subcut MO 03/24/24 hydrocodone-acetaminophen 5-325mg 5mg-325mg 1 tab PO Q6H 7 days #28 tabs 04/21/24 metoprolol succinate 25 mg tablet,extended release 24 hr 25 mg PO DAILY 04/21/24
== END 2024-04-22 11:40 | disposition home or self-care (01) ==
LOC: MS3 04-22 06:53 → SDC 04-22 08:43 → MS3 04-22 08:43
PROVIDERS: Anesthesiology; Admitting Provider Orthopaedic Surgery; PCP Family Medicine; Referring Provider Orthopaedic Surgery; Visit Provider Orthopaedic Surgery
PROC: 0SG10AJ Fusion of 2 or more Lumbar Vertebral Joints with Interbody Fusion Device, Posterior Approach, Anterior Column, Open Approach (ICD-10-PCS; CPT 22630; principal; 2024-04-21 07:00)
DX: M48.061 Spinal stenosis, lumbar region without neurogenic claudication (principal); F31.81 Bipolar II disorder; E66.01 Morbid (severe) obesity due to excess calories; E11.65 Type 2 diabetes mellitus with hyperglycemia; G43.901 Migraine, unspecified, not intractable, with status migrainosus; Z79.84 Long term (current) use of oral hypoglycemic drugs; M51.36 Other intervertebral disc degeneration, lumbar region; M47.26 Other spondylosis with radiculopathy, lumbar region; E78.00 Pure hypercholesterolemia, unspecified; I10 Essential (primary) hypertension; E03.9 Hypothyroidism, unspecified; Z79.890 Hormone replacement therapy; Z79.899 Other long term (current) drug therapy; K21.9 Gastro-esophageal reflux disease without esophagitis; Z68.37 Body mass index [BMI] 37.0-37.9, adult; M79.89 Other specified soft tissue disorders
CPT/HCPCS: 22633; 22634; 63052; 63053 ×2; 20936; 20930; 22842; 00670; 36415; 71046; 72100; 76000; 80048; 82962; 83036; 83735; 84443; 85025; 85610; 85730; 87077; 87081; 93005; 94668; 96361; 96365; 96375; 97162; 99221; 99252; C1713; J7050; J7120; G0378; G0463; J2405; J3475